=== PATIENT | female | born 1960 | race Caucasian/White ===

== ENCOUNTER 2021-10-09 15:04 | Inpatient (IN) | payer MEDICAID ==
[~2021-10-09] VITALS: Ht 167.6 cm; Wt 100.2 kg
[2021-10-09] VITALS (15 sets, daily range): BP systolic 43–141; BP diastolic 22–111
[~2021-10-09 15:04] MED LIST: ALBU6.7H9 INH; ASPI-1497 PO; BUTA-251 MT; ERGO1250; FLOR PO; FURO20TA4 PO; GABA-532 MT; HYDR-4001 MT; LEVO50TA8 MT; LORA10TA7 PO; METH2.5T MT; PRED5TAB MT; SIMV-43 PO; TRIC160 MT
[2021-10-09] MEDS ORDERED: ACETAMINOPHEN 325MG TABLET PO STA (15:29)
[2021-10-09] MEDS ORDERED: CEFTRIAXONE 1 G PREMIX 50 ML IV ONE (15:30)
[2021-10-09] MEDS ORDERED: AZITHROMYCIN 500MG/250ML 250 ML IV ONE (15:30)
[2021-10-09] MEDS ORDERED: SODIUM CHLORIDE 0.9% 1000ML BAG (SEPSIS BOLUS) IV ONE (15:30)
[2021-10-09] MEDS ORDERED: PIPERACILLIN/TAZOBACTAM 3.375GM/50ML PREMIX IV ONE (16:15)
[2021-10-09] MEDS ORDERED: VANCOMYCIN 1 G PREMIX 200 ML IV SCH (16:15)
[2021-10-09] MEDS ORDERED: PIPERACILLIN/TAZ 3.375G PREMIX 50 ML IV NR (16:30)
[2021-10-09] MEDS ORDERED: HYDROCORTISONE SOD SUCCINATE 100 MG/2 ML VIAL IV ONE (16:30)
[2021-10-09 17:00] LABS: CHLORIDE 101 mEq/L (98-107)
[2021-10-09 17:01] LABS: HEMATOCRIT. 36.4 % (36.0-48.0); HEMOGLOBIN. 12.1 g/dL (12.0-16.0); MEAN CORPUSCULAR HEMOGLOBIN 31.9 pg (28.0-32.0); MEAN CORPUSCULAR VOLUME 95.5 fL (81.0-99.0); MEAN PLATELET VOLUME 8.5 fl (7.4-10.4); PLATELET 682 x1000/uL (130-400); RED BLOOD CELL COUNT 3.81 mill/uL (4.2-5.4); RED CELL DISTRIBUTION WIDTH 16.2 % (11.6-14.6)
[2021-10-09 17:04] LABS: CLARITY URINE CLEAR (CLEAR); COLOR URINE YELLOW (YELLOW); KETONES URINE NEGATIVE (NEGATIVE); LEUKOCYTE ESTERASE URINE NEGATIVE (NEGATIVE); NITRITE URINE NEGATIVE (NEGATIVE); OCCULT BLOOD URINE NEGATIVE (NEGATIVE); PROTEIN URINE NEGATIVE (NEGATIVE); SPECIFIC GRAVITY URINE 1.013 (1.005-1.030); UROBILINOGEN URINE 0.2 E.U./dL (0.2-1.0)
[2021-10-09] MEDS: ACETAMINOPHEN 650MG SUPP PR ONE ×2 (17:08→17:10)
[2021-10-09] MEDS ORDERED: NOREPINEPHRINE 8MG/250ML PMX 250 ML IV SCH (17:45)
[2021-10-09] MEDS ORDERED: NOREPINEPHRINE 8 MG in DEXT 5% WATER 242 ML IV PRN (18:25)
[2021-10-09 20:49] LABS: PLATELET ESTIMATE INCREASED
[2021-10-09] MEDS ORDERED: HYDROCODONE/ACETAMINOPHEN 5/325MG TABLET PO PRN (22:00)
[2021-10-09] MEDS ORDERED: PHENYLEPHRINE 50 MG in DEXT 5% WATER 245 ML IV PRN (22:00)
[2021-10-09] MEDS: MORPHINE SULFATE 2 MG/ML CPJ (NOT FOR IM USE) IV PRN (22:36)
[2021-10-09] MEDS: ONDANSETRON HCL 4MG/2ML INJ IV PRN (22:37)
[2021-10-09] MEDS: NOREPINEPHRINE 32 MG in DEXT 5% WATER 218 ML IV PRN (22:39)
[2021-10-10] VITALS (101 sets, daily range): BP systolic 30–205; BP diastolic 14–125
[2021-10-10] MEDS ORDERED: ATROPINE SULFATE 1MG/10ML SYR IV PRN (02:00)
[2021-10-10 03:09] LABS: HEMATOCRIT. 36.6 % (36.0-48.0); HEMOGLOBIN. 11.5 g/dL (12.0-16.0); MEAN CORPUSCULAR HEMOGLOBIN 31.6 pg (28.0-32.0); MEAN CORPUSCULAR VOLUME 100.6 fL (81.0-99.0); MEAN PLATELET VOLUME 8.4 fl (7.4-10.4); PLATELET 813 x1000/uL (130-400); RED BLOOD CELL COUNT 3.64 mill/uL (4.2-5.4); RED CELL DISTRIBUTION WIDTH 16.5 % (11.6-14.6)
[2021-10-10] MEDS: MORPHINE SULFATE 2 MG/ML CPJ (NOT FOR IM USE) IV PRN (03:20)
[2021-10-10] MEDS: NOREPINEPHRINE 32 MG in DEXT 5% WATER 218 ML IV PRN ×3 (04:02→16:49)
[2021-10-10] MEDS ORDERED: GUAIFENESIN 200MG/10ML SUGAR FREE UDC PO PRN (07:00)
[2021-10-10] MEDS: BLOOD SUGAR DIAGNOSTIC STRIP TEST SCH ×4 (07:50→20:24)
[2021-10-10] MEDS ORDERED: ALBUMIN HUMAN 25GM/100ML (25%) IV ONE (08:00)
[2021-10-10] MEDS ORDERED: SODIUM CHLORIDE 0.9% 1,000 ML IV SCH (08:00)
[2021-10-10 08:04] LABS: *AMPHETAMINES SCREEN URINE NEGATIVE (NEGATIVE); *BARBITURATES SCREEN URINE NEGATIVE (NEGATIVE); *BENZODIAZEPINES SCREEN URINE NEGATIVE (NEGATIVE); *COCAINE SCREEN URINE NEGATIVE (NEGATIVE); METHADONE URINE SCREEN NEGATIVE (NEGATIVE); OPIATES URINE SCREEN NEGATIVE (NEGATIVE)
[2021-10-10 08:05] LABS: CANNABINOID URINE SCREEN NEGATIVE (NEGATIVE); PHENCYCLIDINE URINE SCREEN NEGATIVE (NEGATIVE)
[2021-10-10 08:05] LABS: NUCLEATED RED BLOOD CELLS 4 /100 WBC; PLATELET ESTIMATE INCREASED
[2021-10-10] MEDS: PIPERACILLIN/TAZOBACTAM 3.375 G in DEXTROSE 5% WATER 50 ML IV SCH ×3 (08:07→20:53)
[2021-10-10] MEDS: LORAZEPAM 2MG/ML CPJ IM PRN (08:07)
[2021-10-10] MEDS ORDERED: ETOMIDATE 2MG/ML 10ML VIAL IV ONE (08:11)
[2021-10-10] MEDS ORDERED: SUCCINYLCHOLINE CHLORIDE 200MG/10ML IV ONE (08:11)
[2021-10-10 08:36] LABS: BG BASE EXCESS -25.6 mmol/L (-2.0-2.0); BG CARBOXYHEMOGLOBIN 0.3 % (0.5-1.5); BG DEOXYHEMOGLOBIN 1.1 % (0.0-5.0); BG FRACTION INSPIRED OXYGEN 100; BG HCO3 ACT 6.2 mmol/L (22.0-26.0); BG METHEMOGLOBIN 0.3 % (0.0-1.5); BG OXYGEN SATURATION 98.9 % (92.0-98.5); BG OXYHEMOGLOBIN 98.3 % (94.0-97.0); BG PCO2 31.1 mmHg (35.0-45.0); BG PH 6.916 (7.350-7.450); BG PO2 202.7 mmHg (75.0-100.0); BG TOTAL HEMOGLOBIN 12.9 g/dL (12.0-18.0); BG VENT MODE MASK - BIPAP
[2021-10-10] MEDS ORDERED: ENOXAPARIN 40MG/0.4ML SYR SUBCUT SCH (09:00)
[2021-10-10] MEDS: INSULIN LISPRO 100 UNITS/ML SUBCUT SCH ×4 (09:22→20:53)
[2021-10-10] MEDS ORDERED: SODIUM BICARBONATE 8.4% 1 MEQ/ML 50ML SYR IV SCH ×2 (10:00→13:00)
[2021-10-10] MEDS ORDERED: PROPOFOL 10MG/ML 100ML 100 ML IV PRN (10:00)
[2021-10-10] MEDS ORDERED: FENTANYL CITRATE/PF 2,500 MCG in SODIUM CHLORIDE 0.9% 200 ML IV PRN (10:00)
[2021-10-10] MEDS: MIDAZOLAM HCL 100 MG in SODIUM CHLORIDE 0.9% 80 ML IV PRN (10:33)
[2021-10-10 11:44] LABS: BG CARBOXYHEMOGLOBIN 0.3 % (0.5-1.5); BG DEOXYHEMOGLOBIN 0.7 % (0.0-5.0); BG FRACTION INSPIRED OXYGEN 100; BG HCO3 ACT 9.4 mmol/L (22.0-26.0); BG METHEMOGLOBIN 0.4 % (0.0-1.5); BG OXYGEN SATURATION 99.3 % (92.0-98.5); BG OXYHEMOGLOBIN 98.6 % (94.0-97.0); BG PH 7.101 (7.350-7.450); BG PO2 189.9 mmHg (75.0-100.0); BG SAMPLE SITE LEFT BRACHIAL; BG TOTAL HEMOGLOBIN 12.7 g/dL (12.0-18.0); BG VENT MODE VENT - AC
[2021-10-10] MEDS ORDERED: SODIUM CHLORIDE 0.9% 250 ML IV ONE (11:45)
[2021-10-10] MEDS: VASOPRESSIN 20 UNIT in SODIUM CHLORIDE 0.9% 99 ML IV PRN ×2 (11:52→20:50)
[2021-10-10] MEDS ORDERED: NALOXONE HCL 0.4MG/ML VIAL IV PRN (12:30)
[2021-10-10] MEDS ORDERED: SODIUM BICARBONATE 8.4% 1 MEQ/ML 50ML SYR IV ONE (12:45)
[2021-10-10] MEDS: DOPAMINE 800MG PREMIX (DOUBLE) 250 ML IV PRN (12:59)
[2021-10-10] MEDS: MIDODRINE HCL 5MG TABLET PO SCH ×2 (14:23→16:47)
[2021-10-10 15:32] LABS: BG BASE EXCESS -16.3 mmol/L (-2.0-2.0); BG CARBOXYHEMOGLOBIN 0.5 % (0.5-1.5); BG DEOXYHEMOGLOBIN 10.4 % (0.0-5.0); BG FRACTION INSPIRED OXYGEN 60; BG HCO3 ACT 10.9 mmol/L (22.0-26.0); BG METHEMOGLOBIN 0.3 % (0.0-1.5); BG OXYGEN SATURATION 89.5 % (92.0-98.5); BG OXYHEMOGLOBIN 88.8 % (94.0-97.0); BG PCO2 30.4 mmHg (35.0-45.0); BG PH 7.172 (7.350-7.450); BG PO2 64.5 mmHg (75.0-100.0); BG VENT MODE VENT - AC
[2021-10-10] MEDS: SODIUM BICARBONATE 150 MEQ in DEXTROSE 5% WATER 1,000 ML IV SCH (16:46)
[2021-10-10] MEDS: PHENYLEPHRINE 100 MG in DEXT 5% WATER 240 ML IV PRN ×2 (16:48→22:40)
[2021-10-10] MEDS ORDERED: HEPARIN 25,000 UNITS PREMIX 250 ML IV SCH (17:30)
[2021-10-10] MEDS ORDERED: HEPARIN 60 UNITS/KG BOLUS IV NR (18:00)
[2021-10-10] MEDS ORDERED: HYDROCORTISONE SOD SUCCINATE 100 MG/2 ML VIAL IV SCH (18:00)
[2021-10-10] MEDS ORDERED: HEPARIN BOLUS PRN aPTT <30 IV (18:00)
[2021-10-10] MEDS: HYDROCORTISONE SOD SUCCINATE 100 MG/2 ML VIAL IV SCH ×2 (18:40→23:49)
[2021-10-10] MEDS: ACETAMINOPHEN 325MG TABLET PO PRN (19:28)
[2021-10-10 19:39] LABS: CHLORIDE 103 mEq/L (98-107)
[2021-10-10 19:40] LABS: HEMATOCRIT. 34.5 % (36.0-48.0); HEMOGLOBIN. 10.9 g/dL (12.0-16.0); MEAN CORPUSCULAR HEMOGLOBIN 31.5 pg (28.0-32.0); MEAN CORPUSCULAR VOLUME 99.4 fL (81.0-99.0); MEAN PLATELET VOLUME 8.3 fl (7.4-10.4); PLATELET 644 x1000/uL (130-400); RED BLOOD CELL COUNT 3.48 mill/uL (4.2-5.4); RED CELL DISTRIBUTION WIDTH 16.5 % (11.6-14.6)
[2021-10-10 19:45] LABS: PHOSPHORUS 4.4 mg/dL (2.5-4.9)
[2021-10-10 19:47] LABS: CREATINE KINASE 576 IU/L (26-192)
[2021-10-10 19:49] LABS: BETA HYDROXYBUTYRATE 0.3 mMol/L (0.0-0.3)
[2021-10-10] MEDS: HEPARIN 25,000 UNITS PREMIX 250 ML IV SCH (20:53)
[2021-10-10] MEDS ORDERED: EPINEPHRINE 10 MG in SODIUM CHLORIDE 0.9% 240 ML IV PRN (21:00)
[2021-10-10] MEDS ORDERED: KCL 20MEQ/100ML PREMIX 100 ML IV ONE (22:00)
[2021-10-10] MEDS: CALCITRIOL 0.25MCG CAPSULE PO SCH (22:45)
[2021-10-10] MEDS ORDERED: MAGNESIUM 2 G PREMIX 50 ML IV NR (23:00)
[2021-10-10] MEDS ORDERED: CALCIUM GLUCONATE 1GM PREMIX 50 ML IV NR (23:00)
[2021-10-10 23:16] LABS: NUCLEATED RED BLOOD CELLS 2 /100 WBC; PLATELET ESTIMATE INCREASED
[2021-10-11] VITALS (98 sets, daily range): BP systolic 60–146; BP diastolic 34–105
[2021-10-11] MEDS: NOREPINEPHRINE 32 MG in DEXT 5% WATER 218 ML IV PRN ×4 (00:10→20:10)
[2021-10-11] MEDS: MIDAZOLAM HCL 100 MG in SODIUM CHLORIDE 0.9% 80 ML IV PRN (00:11)
[2021-10-11] MEDS: VANCOMYCIN 1 G PREMIX 200 ML IV SCH (00:45)
[2021-10-11] MEDS: DOPAMINE 800MG PREMIX (DOUBLE) 250 ML IV PRN ×3 (00:51→19:19)
[2021-10-11] MEDS ORDERED: POTASSIUM CHLORIDE INJ 60 MEQ in DEXT 5% WATER 500 ML IV NR (01:00)
[2021-10-11] MEDS: SODIUM BICARBONATE 150 MEQ in DEXTROSE 5% WATER 1,000 ML IV SCH ×3 (01:56→20:10)
[2021-10-11] MEDS ORDERED: KCL 20MEQ/100ML PREMIX 100 ML IV NR ×3 (02:00→04:00)
[2021-10-11] MEDS: ACETAMINOPHEN 325MG TABLET PO PRN ×2 (02:11→20:25)
[2021-10-11] MEDS: PHENYLEPHRINE 100 MG in DEXT 5% WATER 240 ML IV PRN ×4 (03:57→20:10)
[2021-10-11] MEDS: PIPERACILLIN/TAZOBACTAM 3.375 G in DEXTROSE 5% WATER 50 ML IV SCH ×3 (05:14→21:49)
[2021-10-11] MEDS: HYDROCORTISONE SOD SUCCINATE 100 MG/2 ML VIAL IV SCH ×4 (05:14→23:11)
[2021-10-11] MEDS ORDERED: CALCIUM GLUCONATE 1GM PREMIX 50 ML IV NR (06:00)
[2021-10-11 08:25] LABS: HEMATOCRIT. 34.6 % (36.0-48.0); HEMOGLOBIN. 10.9 g/dL (12.0-16.0); MEAN CORPUSCULAR HEMOGLOBIN 31.8 pg (28.0-32.0); MEAN CORPUSCULAR VOLUME 101.2 fL (81.0-99.0); MEAN PLATELET VOLUME 8.7 fl (7.4-10.4); PLATELET 615 x1000/uL (130-400); RED BLOOD CELL COUNT 3.42 mill/uL (4.2-5.4); RED CELL DISTRIBUTION WIDTH 17.6 % (11.6-14.6)
[2021-10-11] MEDS: BLOOD SUGAR DIAGNOSTIC STRIP TEST SCH ×4 (08:26→20:03)
[2021-10-11] MEDS: CALCITRIOL 0.25MCG CAPSULE PO SCH (08:30)
[2021-10-11] MEDS: MIDODRINE HCL 5MG TABLET PO SCH ×3 (08:30→17:55)
[2021-10-11] MEDS: INSULIN LISPRO 100 UNITS/ML SUBCUT SCH ×4 (08:31→20:11)
[2021-10-11 08:35] LABS: CHLORIDE 93 mEq/L (98-107)
[2021-10-11 08:41] LABS: PHOSPHORUS 4.5 mg/dL (2.5-4.9)
[2021-10-11] MEDS ORDERED: ENOXAPARIN 30MG/0.3ML SYR SUBCUT SCH (09:00)
[2021-10-11 09:20] LABS: BG CARBOXYHEMOGLOBIN 0.3 % (0.5-1.5); BG DEOXYHEMOGLOBIN 18.5 % (0.0-5.0); BG FRACTION INSPIRED OXYGEN 70; BG HCO3 ACT 14.2 mmol/L (22.0-26.0); BG METHEMOGLOBIN 0.3 % (0.0-1.5); BG OXYGEN SATURATION 81.4 % (92.0-98.5); BG OXYHEMOGLOBIN 80.9 % (94.0-97.0); BG PH 7.147 (7.350-7.450); BG PO2 51.8 mmHg (75.0-100.0); BG SAMPLE SITE RIGHT RADIAL; BG TOTAL RESPIRATORY RATE 30 b/min; BG VENT MODE VENT - AC
[2021-10-11] MEDS ORDERED: SODIUM BICARBONATE 8.4% 1 MEQ/ML 50ML SYR IV NR (10:00)
[2021-10-11 11:54] LABS: BG BASE EXCESS -7.8 mmol/L (-2.0-2.0); BG CARBOXYHEMOGLOBIN 0.2 % (0.5-1.5); BG FRACTION INSPIRED OXYGEN 100; BG HCO3 ACT 19.1 mmol/L (22.0-26.0); BG METHEMOGLOBIN 0.3 % (0.0-1.5); BG OXYHEMOGLOBIN 91.5 % (94.0-97.0); BG PCO2 44.7 mmHg (35.0-45.0); BG PH 7.249 (7.350-7.450); BG PO2 66.1 mmHg (75.0-100.0); BG SAMPLE SITE RIGHT BRACHIAL; BG TOTAL HEMOGLOBIN 11.5 g/dL (12.0-18.0); BG TOTAL RESPIRATORY RATE 36 b/min; BG VENT MODE VENT - AC
[2021-10-11] MEDS: VASOPRESSIN 20 UNIT in SODIUM CHLORIDE 0.9% 99 ML IV PRN (13:25)
[2021-10-11 13:31] LABS: NUCLEATED RED BLOOD CELLS 2 /100 WBC; PLATELET ESTIMATE INCREASED
[2021-10-11 15:56] LABS: BG BASE EXCESS -7.9 mmol/L (-2.0-2.0); BG CARBOXYHEMOGLOBIN 0.2 % (0.5-1.5); BG DEOXYHEMOGLOBIN 6.7 % (0.0-5.0); BG FRACTION INSPIRED OXYGEN 100; BG METHEMOGLOBIN 0.3 % (0.0-1.5); BG OXYGEN SATURATION 93.3 % (92.0-98.5); BG OXYHEMOGLOBIN 92.8 % (94.0-97.0); BG PCO2 44.5 mmHg (35.0-45.0); BG PH 7.249 (7.350-7.450); BG PO2 71.3 mmHg (75.0-100.0); BG SAMPLE SITE RIGHT BRACHIAL; BG TOTAL HEMOGLOBIN 11.8 g/dL (12.0-18.0); BG TOTAL RESPIRATORY RATE 39 b/min; BG VENT MODE VENT - AC
[2021-10-12] VITALS (98 sets, daily range): BP systolic 65–196; BP diastolic 27–76
[2021-10-12] MEDS: PHENYLEPHRINE 100 MG in DEXT 5% WATER 240 ML IV PRN ×2 (01:39→07:17)
[2021-10-12] MEDS: NOREPINEPHRINE 32 MG in DEXT 5% WATER 218 ML IV PRN (04:29)
[2021-10-12] MEDS: SODIUM BICARBONATE 150 MEQ in DEXTROSE 5% WATER 1,000 ML IV SCH (04:53)
[2021-10-12] MEDS: PIPERACILLIN/TAZOBACTAM 3.375 G in DEXTROSE 5% WATER 50 ML IV SCH (05:33)
[2021-10-12] MEDS: HYDROCORTISONE SOD SUCCINATE 100 MG/2 ML VIAL IV SCH ×4 (05:33→23:13)
[2021-10-12 06:26] LABS: CHLORIDE 82 mEq/L (98-107)
[2021-10-12 06:40] LABS: CREATINE KINASE 994 IU/L (26-192)
[2021-10-12 06:42] LABS: PHOSPHORUS 3.6 mg/dL (2.5-4.9)
[2021-10-12 07:06] LABS: HEMATOCRIT. 35.3 % (36.0-48.0); MEAN CORPUSCULAR HEMOGLOBIN 29.8 pg (28.0-32.0); MEAN CORPUSCULAR VOLUME 96.1 fL (81.0-99.0); MEAN PLATELET VOLUME 9.2 fl (7.4-10.4); PLATELET 645 x1000/uL (130-400); RED BLOOD CELL COUNT 3.67 mill/uL (4.2-5.4); RED CELL DISTRIBUTION WIDTH 16.4 % (11.6-14.6)
[2021-10-12 07:06] LABS: *CREATININE RANDOM URINE 40.3 mg/dL (Not Estab.)
[2021-10-12] MEDS ORDERED: PHENYLEPHRINE 100 MG in DEXT 5% WATER 240 ML IV PRN (07:51)
[2021-10-12] MEDS ORDERED: MAGNESIUM 2 G PREMIX 50 ML IV ONE (08:00)
[2021-10-12] MEDS: BLOOD SUGAR DIAGNOSTIC STRIP TEST SCH ×4 (08:23→21:09)
[2021-10-12] MEDS: MIDODRINE HCL 5MG TABLET PO SCH ×3 (08:23→18:06)
[2021-10-12] MEDS: INSULIN LISPRO 100 UNITS/ML SUBCUT SCH ×4 (08:24→21:13)
[2021-10-12] MEDS: CALCIUM GLUCONATE 1GM PREMIX 50 ML IV SCH ×2 (08:40→21:09)
[2021-10-12 08:58] LABS: BG BASE EXCESS -4.6 mmol/L (-2.0-2.0); BG CARBOXYHEMOGLOBIN 0.7 % (0.5-1.5); BG DEOXYHEMOGLOBIN 0.9 % (0.0-5.0); BG FRACTION INSPIRED OXYGEN 100; BG HCO3 ACT 19.4 mmol/L (22.0-26.0); BG METHEMOGLOBIN 0.5 % (0.0-1.5); BG OXYGEN SATURATION 99.1 % (92.0-98.5); BG OXYHEMOGLOBIN 97.9 % (94.0-97.0); BG PCO2 32.2 mmHg (35.0-45.0); BG PH 7.397 (7.350-7.450); BG PO2 140.8 mmHg (75.0-100.0); BG SAMPLE SITE RIGHT BRACHIAL; BG TOTAL HEMOGLOBIN 11.5 g/dL (12.0-18.0); BG TOTAL RESPIRATORY RATE 38 b/min; BG VENT MODE VENT - AC
[2021-10-12] MEDS: CALCITRIOL 0.25MCG CAPSULE PO SCH (09:50)
[2021-10-12] MEDS: NOREPINEPHRINE 32 MG in SODIUM CHLORIDE 0.9% 218 ML IV PRN (09:53)
[2021-10-12] MEDS: PHENYLEPHRINE 100 MG in SODIUM CHLORIDE 0.9% 240 ML IV PRN ×3 (09:54→21:12)
[2021-10-12] MEDS: FENTANYL CITRATE/PF 2,500 MCG in SODIUM CHLORIDE 0.9% 200 ML IV PRN (09:55)
[2021-10-12 11:20] LABS: NUCLEATED RED BLOOD CELLS 20 /100 WBC
[2021-10-12 11:21] LABS: PLATELET ESTIMATE INCREASED
[2021-10-12] MEDS: SODIUM BICARBONATE 150 MEQ in SODIUM CHLORIDE 0.9% 1,000 ML IV SCH (12:03)
[2021-10-12] MEDS: VANCOMYCIN 1 G PREMIX 200 ML IV SCH (12:04)
[2021-10-12 12:19] LABS: INR 1.9; PARTIAL THROMBOPLASTIN TIME 62.8 sec (23.4-31.0); PROTHROMBIN TIME 19.8 sec (9.6-11.0)
[2021-10-12] MEDS: MEROPENEM 1,000 MG in SODIUM CHLORIDE 0.9% 100 ML IV SCH ×2 (16:12→21:09)
[2021-10-12 16:39] LABS: SODIUM URINE RANDOM < 5 mEq/L
[2021-10-12] MEDS: INSULIN GLARGINE UD 100 UNITS/ML SYR SUBCUT SCH (21:13)
[2021-10-12] MEDS: HEPARIN 25,000 UNITS PREMIX 250 ML IV SCH (21:17)
[2021-10-13] VITALS (92 sets, daily range): BP systolic 71–153; BP diastolic 43–88
[2021-10-13] MEDS: PHENYLEPHRINE 100 MG in SODIUM CHLORIDE 0.9% 240 ML IV PRN ×4 (02:34→19:38)
[2021-10-13] MEDS: SODIUM BICARBONATE 150 MEQ in SODIUM CHLORIDE 0.9% 1,000 ML IV SCH (03:51)
[2021-10-13] MEDS: HYDROCORTISONE SOD SUCCINATE 100 MG/2 ML VIAL IV SCH ×4 (05:12→23:59)
[2021-10-13 06:18] LABS: HEMATOCRIT. 37.9 % (36.0-48.0); HEMOGLOBIN. 12.4 g/dL (12.0-16.0); MEAN CORPUSCULAR HEMOGLOBIN 30.6 pg (28.0-32.0); MEAN CORPUSCULAR VOLUME 93.9 fL (81.0-99.0); MEAN PLATELET VOLUME 9.7 fl (7.4-10.4); PLATELET 612 x1000/uL (130-400); RED BLOOD CELL COUNT 4.04 mill/uL (4.2-5.4); RED CELL DISTRIBUTION WIDTH 16.1 % (11.6-14.6)
[2021-10-13 06:26] LABS: CHLORIDE 82 mEq/L (98-107)
[2021-10-13 06:31] LABS: PHOSPHORUS 2.9 mg/dL (2.5-4.9)
[2021-10-13 06:34] LABS: CREATINE KINASE 745 IU/L (26-192)
[2021-10-13] MEDS: INSULIN LISPRO 100 UNITS/ML SUBCUT SCH ×4 (08:20→21:12)
[2021-10-13] MEDS: BLOOD SUGAR DIAGNOSTIC STRIP TEST SCH ×4 (08:39→21:11)
[2021-10-13] MEDS: MEROPENEM 1,000 MG in SODIUM CHLORIDE 0.9% 100 ML IV SCH ×2 (08:40→21:11)
[2021-10-13] MEDS: MIDODRINE HCL 5MG TABLET PO SCH ×3 (08:40→16:22)
[2021-10-13] MEDS: CALCIUM GLUCONATE 1GM PREMIX 50 ML IV SCH ×2 (08:40→21:11)
[2021-10-13 09:21] LABS: NUCLEATED RED BLOOD CELLS 24 /100 WBC; PLATELET ESTIMATE INCREASED
[2021-10-13 09:37] LABS: BG BASE EXCESS 3.7 mmol/L (-2.0-2.0); BG CARBOXYHEMOGLOBIN 0.3 % (0.5-1.5); BG DEOXYHEMOGLOBIN 1.3 % (0.0-5.0); BG FRACTION INSPIRED OXYGEN 100; BG HCO3 ACT 26.5 mmol/L (22.0-26.0); BG METHEMOGLOBIN 0.3 % (0.0-1.5); BG OXYGEN SATURATION 98.7 % (92.0-98.5); BG OXYHEMOGLOBIN 98.1 % (94.0-97.0); BG PCO2 34.1 mmHg (35.0-45.0); BG PH 7.508 (7.350-7.450); BG PO2 126.2 mmHg (75.0-100.0); BG TOTAL HEMOGLOBIN 12.5 g/dL (12.0-18.0); BG VENT MODE VENT - AC
[2021-10-13] MEDS: KCL 20MEQ/100ML PREMIX 100 ML IV SCH ×4 (09:55→16:24)
[2021-10-13] MEDS: CALCITRIOL 0.25MCG CAPSULE PO SCH (09:56)
[2021-10-13] MEDS: INSULIN GLARGINE UD 100 UNITS/ML SYR SUBCUT SCH ×2 (09:57→21:49)
[2021-10-13] MEDS ORDERED: IPRATROPIUM/ALBUTEROL 0.5-3(2.5)MG/3ML NEB HHN PRN (11:15)
[2021-10-13] MEDS: IPRATROPIUM/ALBUTEROL 0.5-3(2.5)MG/3ML NEB HHN SCH ×3 (12:09→20:56)
[2021-10-13] MEDS: FENTANYL CITRATE/PF 2,500 MCG in SODIUM CHLORIDE 0.9% 200 ML IV PRN (13:08)
[2021-10-13] MEDS: PANTOPRAZOLE SODIUM 40 MG/VIAL IV SCH (16:21)
[2021-10-13] MEDS: LORAZEPAM 2MG/ML CPJ IM PRN (17:20)
[2021-10-13] MEDS: NOREPINEPHRINE 32 MG in SODIUM CHLORIDE 0.9% 218 ML IV PRN (19:38)
[2021-10-13 20:38] LABS: BG BASE EXCESS 6.2 mmol/L (-2.0-2.0); BG CARBOXYHEMOGLOBIN 0.8 % (0.5-1.5); BG FRACTION INSPIRED OXYGEN 65; BG HCO3 ACT 30.3 mmol/L (22.0-26.0); BG METHEMOGLOBIN 0.3 % (0.0-1.5); BG OXYGEN SATURATION 92.9 % (92.0-98.5); BG OXYHEMOGLOBIN 91.9 % (94.0-97.0); BG PCO2 41.5 mmHg (35.0-45.0); BG PH 7.481 (7.350-7.450); BG PO2 65.1 mmHg (75.0-100.0); BG SAMPLE SITE LEFT RADIAL; BG VENT MODE VENT - SIMV
[2021-10-13] MEDS: PROPOFOL 10MG/ML 100ML 100 ML IV PRN (21:11)
[2021-10-13] MEDS: VANCOMYCIN 1 G PREMIX 200 ML IV SCH (23:59)
[2021-10-14] VITALS (95 sets, daily range): BP systolic 70–141; BP diastolic 39–83
[2021-10-14] MEDS: IPRATROPIUM/ALBUTEROL 0.5-3(2.5)MG/3ML NEB HHN SCH ×6 (00:21→20:42)
[2021-10-14] MEDS: PHENYLEPHRINE 100 MG in SODIUM CHLORIDE 0.9% 240 ML IV PRN ×4 (01:34→20:09)
[2021-10-14 02:42] LABS: HEMATOCRIT. 36.1 % (36.0-48.0); HEMOGLOBIN. 11.9 g/dL (12.0-16.0); MEAN CORPUSCULAR HEMOGLOBIN 30.9 pg (28.0-32.0); MEAN CORPUSCULAR VOLUME 93.9 fL (81.0-99.0); MEAN PLATELET VOLUME 9.7 fl (7.4-10.4); PLATELET 553 x1000/uL (130-400); RED CELL DISTRIBUTION WIDTH 16.3 % (11.6-14.6)
[2021-10-14 02:54] LABS: PHOSPHORUS 2.2 mg/dL (2.5-4.9)
[2021-10-14 03:02] LABS: RED BLOOD CELL COUNT 3.84 mill/uL (4.2-5.4)
[2021-10-14] MEDS: PROPOFOL 10MG/ML 100ML 100 ML IV PRN (03:51)
[2021-10-14] MEDS: HYDROCORTISONE SOD SUCCINATE 100 MG/2 ML VIAL IV SCH ×3 (05:09→17:29)
[2021-10-14] MEDS: FENTANYL CITRATE/PF 2,500 MCG in SODIUM CHLORIDE 0.9% 200 ML IV PRN ×2 (05:15→23:03)
[2021-10-14] MEDS: BLOOD SUGAR DIAGNOSTIC STRIP TEST SCH ×3 (07:50→17:41)
[2021-10-14] MEDS: CALCIUM GLUCONATE 1GM PREMIX 50 ML IV SCH ×2 (09:04→20:24)
[2021-10-14] MEDS: PANTOPRAZOLE SODIUM 40 MG/VIAL IV SCH (09:04)
[2021-10-14] MEDS: DOPAMINE 800MG PREMIX (DOUBLE) 250 ML IV PRN ×2 (09:04→09:20)
[2021-10-14] MEDS: MEROPENEM 1,000 MG in SODIUM CHLORIDE 0.9% 100 ML IV SCH ×2 (09:04→20:24)
[2021-10-14] MEDS: CALCITRIOL 1MCG/ML AMP IV SCH (09:05)
[2021-10-14] MEDS: MIDODRINE HCL 5MG TABLET PO SCH ×3 (09:05→22:14)
[2021-10-14] MEDS: INSULIN LISPRO 100 UNITS/ML SUBCUT SCH ×3 (09:06→17:30)
[2021-10-14] MEDS: INSULIN GLARGINE UD 100 UNITS/ML SYR SUBCUT SCH ×2 (09:21→22:15)
[2021-10-14 10:00] LABS: BG BASE EXCESS 4.5 mmol/L (-2.0-2.0); BG CARBOXYHEMOGLOBIN 0.3 % (0.5-1.5); BG DEOXYHEMOGLOBIN 8.3 % (0.0-5.0); BG FRACTION INSPIRED OXYGEN 65; BG HCO3 ACT 28.7 mmol/L (22.0-26.0); BG METHEMOGLOBIN 0.5 % (0.0-1.5); BG OXYGEN SATURATION 91.6 % (92.0-98.5); BG OXYHEMOGLOBIN 90.9 % (94.0-97.0); BG PCO2 41.3 mmHg (35.0-45.0); BG PO2 64.2 mmHg (75.0-100.0); BG SAMPLE SITE LEFT RADIAL; BG TOTAL HEMOGLOBIN 12.5 g/dL (12.0-18.0); BG VENT MODE VENT - AC
[2021-10-14 13:08] LABS: METHANOL BLOOD <.010 g/dL (0.000-0.010)
[2021-10-14 13:57] LABS: NUCLEATED RED BLOOD CELLS 42 /100 WBC; PLATELET ESTIMATE INCREASED
[2021-10-14 15:06] LABS: ETHYLENE GLYCOL <5 mg/dL (None detected)
[2021-10-14] MEDS ORDERED: POTASSIUM CHLORIDE INJ 40 MEQ in DEXT 5% WATER 250 ML IV ONE (17:45)
[2021-10-14] MEDS: FUROSEMIDE 40MG/4ML VIAL IVP SCH (18:31)
[2021-10-14] MEDS: HEPARIN BOLUS PRN aPTT 30-44 IV (18:44)
[2021-10-14] MEDS: KCL 20MEQ/100ML PREMIX 100 ML IV SCH ×2 (19:50→22:14)
[2021-10-14] MEDS: HEPARIN 25,000 UNITS in DEXT 5% WATER 250 ML IV SCH (21:46)
[2021-10-15] VITALS (96 sets, daily range): BP systolic 63–158; BP diastolic 46–94
[2021-10-15] MEDS: HYDROCORTISONE SOD SUCCINATE 100 MG/2 ML VIAL IV SCH ×5 (00:21→23:52)
[2021-10-15] MEDS: BLOOD SUGAR DIAGNOSTIC STRIP TEST SCH ×5 (00:22→23:51)
[2021-10-15] MEDS: INSULIN LISPRO 100 UNITS/ML SUBCUT SCH ×5 (00:23→23:52)
[2021-10-15] MEDS: IPRATROPIUM/ALBUTEROL 0.5-3(2.5)MG/3ML NEB HHN SCH ×6 (00:26→20:18)
[2021-10-15] MEDS: PHENYLEPHRINE 100 MG in SODIUM CHLORIDE 0.9% 240 ML IV PRN ×2 (03:09→09:19)
[2021-10-15] MEDS: MIDODRINE HCL 5MG TABLET PO SCH ×3 (05:52→22:57)
[2021-10-15 06:27] LABS: CHLORIDE 91 mEq/L (98-107)
[2021-10-15 06:35] LABS: PHOSPHORUS 2.4 mg/dL (2.5-4.9)
[2021-10-15 06:39] LABS: T4 FREE 1.19 ng/dL (0.76-1.46)
[2021-10-15 06:55] LABS: VITAMIN B12 SERUM >2000 pg/mL pg/mL (211-911)
[2021-10-15] MEDS: MEROPENEM 1,000 MG in SODIUM CHLORIDE 0.9% 100 ML IV SCH ×2 (09:09→20:24)
[2021-10-15] MEDS: PANTOPRAZOLE SODIUM 40 MG/VIAL IV SCH (09:09)
[2021-10-15] MEDS: CALCIUM GLUCONATE 1GM PREMIX 50 ML IV SCH ×2 (09:09→20:24)
[2021-10-15] MEDS: FUROSEMIDE 40MG/4ML VIAL IVP SCH (09:09)
[2021-10-15] MEDS: CALCITRIOL 1MCG/ML AMP IV SCH (09:10)
[2021-10-15 09:12] LABS: BG CARBOXYHEMOGLOBIN 0.4 % (0.5-1.5); BG DEOXYHEMOGLOBIN 2.4 % (0.0-5.0); BG FRACTION INSPIRED OXYGEN 60; BG HCO3 ACT 31.1 mmol/L (22.0-26.0); BG METHEMOGLOBIN 0.3 % (0.0-1.5); BG OXYGEN SATURATION 97.6 % (92.0-98.5); BG OXYHEMOGLOBIN 96.9 % (94.0-97.0); BG PCO2 47.4 mmHg (35.0-45.0); BG PH 7.435 (7.350-7.450); BG PO2 93.6 mmHg (75.0-100.0); BG SAMPLE SITE LEFT RADIAL; BG TOTAL HEMOGLOBIN 12.2 g/dL (12.0-18.0); BG VENT MODE VENT - AC
[2021-10-15] MEDS: INSULIN GLARGINE UD 100 UNITS/ML SYR SUBCUT SCH ×2 (10:38→22:58)
[2021-10-15 11:57] LABS: HEMATOCRIT. 35.4 % (36.0-48.0); HEMOGLOBIN. 10.8 g/dL (12.0-16.0); MEAN CORPUSCULAR HEMOGLOBIN 29.6 pg (28.0-32.0); MEAN CORPUSCULAR VOLUME 96.5 fL (81.0-99.0); MEAN PLATELET VOLUME 10.4 fl (7.4-10.4); PLATELET 431 x1000/uL (130-400); RED BLOOD CELL COUNT 3.67 mill/uL (4.2-5.4); RED CELL DISTRIBUTION WIDTH 16.6 % (11.6-14.6)
[2021-10-15] MEDS: VANCOMYCIN 1 G PREMIX 200 ML IV SCH (12:07)
[2021-10-15 14:10] LABS: NUCLEATED RED BLOOD CELLS 28 /100 WBC
[2021-10-15 14:11] LABS: PLATELET ESTIMATE SLIGHTLY INCREASED
[2021-10-15] MEDS: FENTANYL CITRATE/PF 2,500 MCG in SODIUM CHLORIDE 0.9% 200 ML IV PRN (16:17)
[2021-10-16] VITALS (110 sets, daily range): BP systolic 65–183; BP diastolic 38–98
[2021-10-16] MEDS: PHENYLEPHRINE 100 MG in SODIUM CHLORIDE 0.9% 240 ML IV PRN (00:07)
[2021-10-16] MEDS: HEPARIN 25,000 UNITS in DEXT 5% WATER 250 ML IV SCH (02:04)
[2021-10-16] MEDS: IPRATROPIUM/ALBUTEROL 0.5-3(2.5)MG/3ML NEB HHN SCH ×5 (02:09→20:12)
[2021-10-16 02:40] LABS: HEMATOCRIT. 32.6 % (36.0-48.0); HEMOGLOBIN. 10.1 g/dL (12.0-16.0); MEAN CORPUSCULAR HEMOGLOBIN 29.5 pg (28.0-32.0); MEAN CORPUSCULAR VOLUME 95.2 fL (81.0-99.0); MEAN PLATELET VOLUME 10.9 fl (7.4-10.4); PLATELET 373 x1000/uL (130-400); RED BLOOD CELL COUNT 3.43 mill/uL (4.2-5.4); RED CELL DISTRIBUTION WIDTH 16.3 % (11.6-14.6)
[2021-10-16 02:45] LABS: CHLORIDE 91 mEq/L (98-107)
[2021-10-16 02:54] LABS: PHOSPHORUS 2.3 mg/dL (2.5-4.9)
[2021-10-16] MEDS: BLOOD SUGAR DIAGNOSTIC STRIP TEST SCH ×4 (06:00→23:54)
[2021-10-16] MEDS: HYDROCORTISONE SOD SUCCINATE 100 MG/2 ML VIAL IV SCH ×4 (06:08→23:30)
[2021-10-16] MEDS: DOPAMINE 800MG PREMIX (DOUBLE) 250 ML IV PRN (06:10)
[2021-10-16] MEDS: INSULIN LISPRO 100 UNITS/ML SUBCUT SCH ×4 (06:12→23:34)
[2021-10-16 06:46] LABS: NUCLEATED RED BLOOD CELLS 13 /100 WBC
[2021-10-16 06:47] LABS: PLATELET ESTIMATE NORMAL
[2021-10-16] MEDS: FENTANYL CITRATE/PF 2,500 MCG in SODIUM CHLORIDE 0.9% 200 ML IV PRN (08:40)
[2021-10-16] MEDS: FUROSEMIDE 40MG/4ML VIAL IVP SCH (08:52)
[2021-10-16] MEDS: PANTOPRAZOLE SODIUM 40 MG/VIAL IV SCH (08:52)
[2021-10-16] MEDS: MEROPENEM 1,000 MG in SODIUM CHLORIDE 0.9% 100 ML IV SCH ×2 (08:53→20:12)
[2021-10-16] MEDS: CALCITRIOL 1MCG/ML AMP IV SCH (08:54)
[2021-10-16] MEDS: CALCIUM GLUCONATE 1GM PREMIX 50 ML IV SCH (08:58)
[2021-10-16] MEDS: MIDODRINE HCL 5MG TABLET PO SCH ×3 (08:58→21:44)
[2021-10-16] MEDS: INSULIN GLARGINE UD 100 UNITS/ML SYR SUBCUT SCH ×2 (10:37→21:45)
[2021-10-16] MEDS: HEPARIN BOLUS PRN aPTT 30-44 IV (10:37)
[2021-10-16 11:23] LABS: BG CARBOXYHEMOGLOBIN 0.3 % (0.5-1.5); BG DEOXYHEMOGLOBIN 2.5 % (0.0-5.0); BG FRACTION INSPIRED OXYGEN 60; BG HCO3 ACT 26.5 mmol/L (22.0-26.0); BG METHEMOGLOBIN 0.3 % (0.0-1.5); BG OXYGEN SATURATION 97.5 % (92.0-98.5); BG OXYHEMOGLOBIN 96.9 % (94.0-97.0); BG PCO2 36.5 mmHg (35.0-45.0); BG PH 7.479 (7.350-7.450); BG PO2 92.8 mmHg (75.0-100.0); BG SAMPLE SITE LEFT RADIAL; BG TOTAL HEMOGLOBIN 10.5 g/dL (12.0-18.0); BG TOTAL RESPIRATORY RATE 20 b/min; BG VENT MODE VENT - AC
[2021-10-16] MEDS ORDERED: FUROSEMIDE 40MG/4ML VIAL IVP SCH (14:00)
[2021-10-16] MEDS: POTASSIUM-SODIUM PHOSPHATE POWDER PACKET PO SCH ×2 (14:20→16:41)
[2021-10-16] MEDS: CALCIUM 1250MG TABLET (500MG ELEMENTAL CALCIUM) PO SCH (20:12)
[2021-10-16] MEDS: VANCOMYCIN 1 G PREMIX 200 ML IV SCH (23:30)
[2021-10-17] VITALS (97 sets, daily range): BP systolic 89–146; BP diastolic 44–69
[2021-10-17] MEDS: IPRATROPIUM/ALBUTEROL 0.5-3(2.5)MG/3ML NEB HHN SCH ×6 (00:14→20:45)
[2021-10-17] MEDS: FENTANYL CITRATE/PF 2,500 MCG in SODIUM CHLORIDE 0.9% 200 ML IV PRN ×2 (05:32→23:07)
[2021-10-17] MEDS: HYDROCORTISONE SOD SUCCINATE 100 MG/2 ML VIAL IV SCH ×4 (05:34→22:47)
[2021-10-17] MEDS: HEPARIN 25,000 UNITS in DEXT 5% WATER 250 ML IV SCH (05:34)
[2021-10-17] MEDS: FUROSEMIDE 40MG/4ML VIAL IVP SCH ×2 (05:34→17:45)
[2021-10-17] MEDS: MIDODRINE HCL 5MG TABLET PO SCH ×3 (05:35→22:47)
[2021-10-17] MEDS: INSULIN LISPRO 100 UNITS/ML SUBCUT SCH ×4 (05:52→23:56)
[2021-10-17 06:11] LABS: HEMATOCRIT. 28.4 % (36.0-48.0); HEMOGLOBIN. 8.9 g/dL (12.0-16.0); MEAN CORPUSCULAR VOLUME 95.4 fL (81.0-99.0); MEAN PLATELET VOLUME 11.5 fl (7.4-10.4); PLATELET 284 x1000/uL (130-400); RED BLOOD CELL COUNT 2.98 mill/uL (4.2-5.4); RED CELL DISTRIBUTION WIDTH 16.7 % (11.6-14.6)
[2021-10-17 06:15] LABS: PHOSPHORUS 3.4 mg/dL (2.5-4.9)
[2021-10-17] MEDS: BLOOD SUGAR DIAGNOSTIC STRIP TEST SCH ×4 (06:57→23:43)
[2021-10-17 07:52] LABS: BG BASE EXCESS 12.1 mmol/L (-2.0-2.0); BG CARBOXYHEMOGLOBIN 0.1 % (0.5-1.5); BG DEOXYHEMOGLOBIN 5.6 % (0.0-5.0); BG FRACTION INSPIRED OXYGEN 50; BG HCO3 ACT 36.6 mmol/L (22.0-26.0); BG METHEMOGLOBIN 0.4 % (0.0-1.5); BG OXYGEN SATURATION 94.4 % (92.0-98.5); BG OXYHEMOGLOBIN 93.9 % (94.0-97.0); BG PCO2 47.8 mmHg (35.0-45.0); BG PH 7.502 (7.350-7.450); BG PO2 69.7 mmHg (75.0-100.0); BG SAMPLE SITE LEFT RADIAL; BG TOTAL HEMOGLOBIN 9.8 g/dL (12.0-18.0); BG TOTAL RESPIRATORY RATE 17 b/min; BG VENT MODE VENT - AC
[2021-10-17 08:51] LABS: NUCLEATED RED BLOOD CELLS 8 /100 WBC; PLATELET ESTIMATE NORMAL
[2021-10-17] MEDS: PANTOPRAZOLE SODIUM 40 MG/VIAL IV SCH (09:00)
[2021-10-17] MEDS: POTASSIUM-SODIUM PHOSPHATE POWDER PACKET PO SCH (09:29)
[2021-10-17] MEDS: CALCITRIOL 1MCG/ML AMP IV SCH (09:31)
[2021-10-17] MEDS: MEROPENEM 1,000 MG in SODIUM CHLORIDE 0.9% 100 ML IV SCH ×2 (09:31→20:27)
[2021-10-17] MEDS: INSULIN GLARGINE UD 100 UNITS/ML SYR SUBCUT SCH ×2 (09:32→22:49)
[2021-10-17 19:53] LABS: HEMATOCRIT. 29.3 % (36.0-48.0); HEMOGLOBIN. 8.8 g/dL (12.0-16.0); MEAN CORPUSCULAR HEMOGLOBIN 29.3 pg (28.0-32.0); MEAN CORPUSCULAR VOLUME 97.6 fL (81.0-99.0); PLATELET 269 x1000/uL (130-400); RED CELL DISTRIBUTION WIDTH 16.6 % (11.6-14.6)
[2021-10-17 23:29] LABS: NUCLEATED RED BLOOD CELLS 5 /100 WBC
[2021-10-17 23:30] LABS: PLATELET ESTIMATE NORMAL
[2021-10-18] VITALS (97 sets, daily range): BP systolic 99–182; BP diastolic 34–153
[2021-10-18] MEDS ORDERED: VANCOMYCIN 750 MG PREMIX 150 ML IV SCH
[2021-10-18] MEDS: IPRATROPIUM/ALBUTEROL 0.5-3(2.5)MG/3ML NEB HHN SCH ×7 (00:29→23:48)
[2021-10-18] MEDS: BLOOD SUGAR DIAGNOSTIC STRIP TEST SCH ×3 (05:04→18:47)
[2021-10-18] MEDS: HYDROCORTISONE SOD SUCCINATE 100 MG/2 ML VIAL IV SCH ×3 (05:32→21:09)
[2021-10-18] MEDS: FUROSEMIDE 40MG/4ML VIAL IVP SCH ×2 (05:32→19:04)
[2021-10-18] MEDS: INSULIN LISPRO 100 UNITS/ML SUBCUT SCH ×3 (05:33→18:00)
[2021-10-18] MEDS: MIDODRINE HCL 5MG TABLET PO SCH ×3 (05:33→21:10)
[2021-10-18 06:15] LABS: HEMATOCRIT. 25.8 % (36.0-48.0); HEMOGLOBIN. 7.8 g/dL (12.0-16.0); MEAN CORPUSCULAR HEMOGLOBIN 29.5 pg (28.0-32.0); MEAN CORPUSCULAR VOLUME 97.2 fL (81.0-99.0); MEAN PLATELET VOLUME 11.4 fl (7.4-10.4); PLATELET 251 x1000/uL (130-400); RED BLOOD CELL COUNT 2.66 mill/uL (4.2-5.4); RED CELL DISTRIBUTION WIDTH 16.6 % (11.6-14.6)
[2021-10-18 06:29] LABS: PHOSPHORUS 4.1 mg/dL (2.5-4.9)
[2021-10-18] MEDS: MEROPENEM 1,000 MG in SODIUM CHLORIDE 0.9% 100 ML IV SCH ×2 (08:26→21:09)
[2021-10-18] MEDS: PANTOPRAZOLE SODIUM 40 MG/VIAL IV SCH (08:26)
[2021-10-18] MEDS: CALCITRIOL 1MCG/ML AMP IV SCH (08:27)
[2021-10-18] MEDS: INSULIN GLARGINE UD 100 UNITS/ML SYR SUBCUT SCH ×2 (10:23→21:11)
[2021-10-18 11:36] LABS: BG BASE EXCESS 11.9 mmol/L (-2.0-2.0); BG CARBOXYHEMOGLOBIN 0.3 % (0.5-1.5); BG DEOXYHEMOGLOBIN 5.2 % (0.0-5.0); BG FRACTION INSPIRED OXYGEN 40; BG METHEMOGLOBIN 0.1 % (0.0-1.5); BG OXYGEN SATURATION 94.8 % (92.0-98.5); BG OXYHEMOGLOBIN 94.4 % (94.0-97.0); BG PCO2 45.6 mmHg (35.0-45.0); BG PH 7.515 (7.350-7.450); BG PO2 68.9 mmHg (75.0-100.0); BG SAMPLE SITE LEFT RADIAL; BG TOTAL HEMOGLOBIN 8.7 g/dL (12.0-18.0); BG VENT MODE VENT - CPAP
[2021-10-18 15:19] LABS: NUCLEATED RED BLOOD CELLS 16 /100 WBC; PLATELET ESTIMATE NORMAL
[2021-10-18] MEDS: VANCOMYCIN 750 MG PREMIX 150 ML IV SCH (19:04)
[2021-10-18] MEDS: POTASSIUM-SODIUM PHOSPHATE POWDER PACKET PO SCH (19:06)
[2021-10-19] VITALS (93 sets, daily range): BP systolic 113–179; BP diastolic 47–98
[2021-10-19] MEDS: BLOOD SUGAR DIAGNOSTIC STRIP TEST SCH ×5 (00:22→23:51)
[2021-10-19] MEDS: IPRATROPIUM/ALBUTEROL 0.5-3(2.5)MG/3ML NEB HHN SCH ×5 (03:55→20:28)
[2021-10-19 05:39] LABS: HEMATOCRIT. 25.8 % (36.0-48.0); HEMOGLOBIN. 8.1 g/dL (12.0-16.0); MEAN CORPUSCULAR HEMOGLOBIN 31.4 pg (28.0-32.0); MEAN CORPUSCULAR VOLUME 99.6 fL (81.0-99.0); PLATELET 230 x1000/uL (130-400); RED BLOOD CELL COUNT 2.59 mill/uL (4.2-5.4); RED CELL DISTRIBUTION WIDTH 16.3 % (11.6-14.6)
[2021-10-19] MEDS: HYDROCORTISONE SOD SUCCINATE 100 MG/2 ML VIAL IV SCH ×3 (05:43→22:05)
[2021-10-19] MEDS: FUROSEMIDE 40MG/4ML VIAL IVP SCH ×2 (05:43→17:15)
[2021-10-19] MEDS: INSULIN LISPRO 100 UNITS/ML SUBCUT SCH ×5 (05:44→23:51)
[2021-10-19] MEDS: MIDODRINE HCL 5MG TABLET PO SCH ×4 (05:45→22:05)
[2021-10-19 05:58] LABS: PHOSPHORUS 4.5 mg/dL (2.5-4.9)
[2021-10-19] MEDS: POTASSIUM-SODIUM PHOSPHATE POWDER PACKET PO SCH ×2 (08:30→17:15)
[2021-10-19] MEDS: PANTOPRAZOLE SODIUM 40 MG/VIAL IV SCH (08:30)
[2021-10-19] MEDS: CALCITRIOL 1MCG/ML AMP IV SCH (08:31)
[2021-10-19] MEDS: ONDANSETRON HCL 4MG/2ML INJ IV PRN (09:51)
[2021-10-19] MEDS: INSULIN GLARGINE UD 100 UNITS/ML SYR SUBCUT SCH ×2 (09:52→22:06)
[2021-10-19] MEDS ORDERED: LACTULOSE 20G/30ML UDC PO SCH (10:00)
[2021-10-19] MEDS: VANCOMYCIN 750 MG PREMIX 150 ML IV SCH (11:33)
[2021-10-19 11:44] LABS: NUCLEATED RED BLOOD CELLS 13 /100 WBC; PLATELET ESTIMATE NORMAL
[2021-10-19] MEDS ORDERED: HYDRALAZINE 20MG/ML VIAL IV PRN (12:30)
[2021-10-20] VITALS (89 sets, daily range): BP systolic 92–176; BP diastolic 45–101
[2021-10-20] MEDS: IPRATROPIUM/ALBUTEROL 0.5-3(2.5)MG/3ML NEB HHN SCH ×6 (00:17→20:16)
[2021-10-20] MEDS: INSULIN LISPRO 100 UNITS/ML SUBCUT SCH ×3 (06:00→18:00)
[2021-10-20] MEDS: MIDODRINE HCL 5MG TABLET PO SCH ×3 (06:00→22:24)
[2021-10-20] MEDS: BLOOD SUGAR DIAGNOSTIC STRIP TEST SCH ×3 (06:11→18:18)
[2021-10-20] MEDS: VANCOMYCIN 750 MG PREMIX 150 ML IV SCH (06:19)
[2021-10-20] MEDS: HYDROCORTISONE SOD SUCCINATE 100 MG/2 ML VIAL IV SCH ×3 (06:19→22:20)
[2021-10-20] MEDS: FUROSEMIDE 40MG/4ML VIAL IVP SCH ×2 (06:19→17:39)
[2021-10-20 06:55] LABS: HEMATOCRIT. 30.7 % (36.0-48.0); HEMOGLOBIN. 9.7 g/dL (12.0-16.0); MEAN CORPUSCULAR HEMOGLOBIN 32.3 pg (28.0-32.0); MEAN CORPUSCULAR VOLUME 101.9 fL (81.0-99.0); MEAN PLATELET VOLUME 11.6 fl (7.4-10.4); PLATELET 150 x1000/uL (130-400); RED BLOOD CELL COUNT 3.01 mill/uL (4.2-5.4); RED CELL DISTRIBUTION WIDTH 17.7 % (11.6-14.6)
[2021-10-20 07:48] LABS: CHLORIDE 101 mEq/L (98-107)
[2021-10-20 07:55] LABS: VANCOMYCIN TROUGH 26.8 ug/mL (5.0-10.0)
[2021-10-20] MEDS: POTASSIUM-SODIUM PHOSPHATE POWDER PACKET PO SCH ×2 (08:27→17:40)
[2021-10-20] MEDS: PANTOPRAZOLE SODIUM 40 MG/VIAL IV SCH ×2 (08:27→21:01)
[2021-10-20] MEDS: CALCITRIOL 1MCG/ML AMP IV SCH (08:28)
[2021-10-20] MEDS: INSULIN GLARGINE UD 100 UNITS/ML SYR SUBCUT SCH ×2 (09:47→22:25)
[2021-10-20 13:56] LABS: NUCLEATED RED BLOOD CELLS 9 /100 WBC; PLATELET ESTIMATE NORMAL
[2021-10-20] MEDS ORDERED: ENOXAPARIN 30MG/0.3ML SYR SUBCUT SCH (18:00)
[2021-10-20] MEDS ORDERED: FENTANYL CITRATE/PF 2,500 MCG in SODIUM CHLORIDE 0.9% 200 ML IV PRN (18:15)
[2021-10-21] VITALS (93 sets, daily range): BP systolic 99–149; BP diastolic 55–89
[2021-10-21] MEDS: BLOOD SUGAR DIAGNOSTIC STRIP TEST SCH ×4 (00:18→17:00)
[2021-10-21] MEDS: IPRATROPIUM/ALBUTEROL 0.5-3(2.5)MG/3ML NEB HHN SCH ×5 (04:15→20:44)
[2021-10-21] MEDS: FUROSEMIDE 40MG/4ML VIAL IVP SCH (05:55)
[2021-10-21] MEDS: HYDROCORTISONE SOD SUCCINATE 100 MG/2 ML VIAL IV SCH ×3 (05:55→21:25)
[2021-10-21] MEDS: VANCOMYCIN 1250MG in DEXTROSE 5% WATER 250ML IV SCH (05:56)
[2021-10-21] MEDS: MIDODRINE HCL 5MG TABLET PO SCH ×3 (05:56→21:26)
[2021-10-21 06:00] LABS: HEMATOCRIT. 28.1 % (36.0-48.0); HEMOGLOBIN. 9.1 g/dL (12.0-16.0); MEAN CORPUSCULAR HEMOGLOBIN 32.8 pg (28.0-32.0); MEAN CORPUSCULAR VOLUME 101.2 fL (81.0-99.0); MEAN PLATELET VOLUME 10.3 fl (7.4-10.4); PLATELET 210 x1000/uL (130-400); RED BLOOD CELL COUNT 2.77 mill/uL (4.2-5.4)
[2021-10-21] MEDS: INSULIN LISPRO 100 UNITS/ML SUBCUT SCH ×4 (06:00→17:00)
[2021-10-21 06:01] LABS: CHLORIDE 104 mEq/L (98-107)
[2021-10-21 06:09] LABS: PHOSPHORUS 5.4 mg/dL (2.5-4.9)
[2021-10-21] MEDS: POTASSIUM-SODIUM PHOSPHATE POWDER PACKET PO SCH ×2 (09:28→17:00)
[2021-10-21] MEDS: PANTOPRAZOLE SODIUM 40 MG/VIAL IV SCH ×2 (09:28→21:25)
[2021-10-21] MEDS: CALCITRIOL 1MCG/ML AMP IV SCH (09:28)
[2021-10-21] MEDS: INSULIN GLARGINE UD 100 UNITS/ML SYR SUBCUT SCH ×2 (09:29→22:54)
[2021-10-21] MEDS ORDERED: POTASSIUM CHLORIDE INJ 40 MEQ in DEXT 5% WATER 250 ML IV ONE (10:30)
[2021-10-21] MEDS ORDERED: POTASSIUM CHLORIDE 20MEQ/PACKET NG NR (10:30)
[2021-10-21] MEDS: KCL 20MEQ/100ML PREMIX 100 ML IV SCH ×2 (12:59→15:11)
[2021-10-21 14:08] LABS: BG BASE EXCESS 11.6 mmol/L (-2.0-2.0); BG CARBOXYHEMOGLOBIN 0.1 % (0.5-1.5); BG FRACTION INSPIRED OXYGEN 40; BG HCO3 ACT 34.4 mmol/L (22.0-26.0); BG METHEMOGLOBIN 0.3 % (0.0-1.5); BG OXYHEMOGLOBIN 96.6 % (94.0-97.0); BG PCO2 37.4 mmHg (35.0-45.0); BG PH 7.581 (7.350-7.450); BG SAMPLE SITE LEFT RADIAL; BG TOTAL HEMOGLOBIN 10.2 g/dL (12.0-18.0); BG TOTAL RESPIRATORY RATE 25 b/min; BG VENT MODE VENT - CPAP
[2021-10-21 17:37] LABS: NUCLEATED RED BLOOD CELLS 8 /100 WBC; PLATELET ESTIMATE NORMAL
[2021-10-21 21:06] LABS: HEPATITIS B SURFACE ANTIGEN NEGATIVE
[2021-10-22] VITALS (95 sets, daily range): BP systolic 96–143; BP diastolic 52–87
[2021-10-22] MEDS: IPRATROPIUM/ALBUTEROL 0.5-3(2.5)MG/3ML NEB HHN SCH ×7 (00:17→23:56)
[2021-10-22] MEDS: BLOOD SUGAR DIAGNOSTIC STRIP TEST SCH ×4 (00:23→18:57)
[2021-10-22] MEDS: INSULIN LISPRO 100 UNITS/ML SUBCUT SCH ×4 (00:43→18:58)
[2021-10-22] MEDS: MIDODRINE HCL 5MG TABLET PO SCH ×3 (06:08→21:56)
[2021-10-22] MEDS: VANCOMYCIN 1250MG in DEXTROSE 5% WATER 250ML IV SCH (06:08)
[2021-10-22] MEDS: HYDROCORTISONE SOD SUCCINATE 100 MG/2 ML VIAL IV SCH ×3 (06:08→21:55)
[2021-10-22 06:17] LABS: HEMATOCRIT. 30.2 % (36.0-48.0); HEMOGLOBIN. 9.7 g/dL (12.0-16.0); MEAN CORPUSCULAR HEMOGLOBIN 32.7 pg (28.0-32.0); MEAN CORPUSCULAR VOLUME 101.7 fL (81.0-99.0); MEAN PLATELET VOLUME 10.1 fl (7.4-10.4); PLATELET 202 x1000/uL (130-400); RED BLOOD CELL COUNT 2.97 mill/uL (4.2-5.4)
[2021-10-22 06:20] LABS: CHLORIDE 107 mEq/L (98-107)
[2021-10-22 06:27] LABS: PHOSPHORUS 4.3 mg/dL (2.5-4.9)
[2021-10-22] MEDS: PANTOPRAZOLE SODIUM 40 MG/VIAL IV SCH ×2 (08:44→21:54)
[2021-10-22] MEDS: POTASSIUM-SODIUM PHOSPHATE POWDER PACKET PO SCH ×2 (08:45→18:58)
[2021-10-22] MEDS: CALCITRIOL 1MCG/ML AMP IV SCH (08:45)
[2021-10-22] MEDS ORDERED: FUROSEMIDE 40MG/4ML VIAL IVP SCH (09:00)
[2021-10-22 09:53] LABS: BG BASE EXCESS 14.9 mmol/L (-2.0-2.0); BG CARBOXYHEMOGLOBIN 0.3 % (0.5-1.5); BG DEOXYHEMOGLOBIN 3.5 % (0.0-5.0); BG FRACTION INSPIRED OXYGEN 40; BG HCO3 ACT 38.8 mmol/L (22.0-26.0); BG METHEMOGLOBIN 0.3 % (0.0-1.5); BG OXYGEN SATURATION 96.5 % (92.0-98.5); BG OXYHEMOGLOBIN 95.9 % (94.0-97.0); BG PCO2 44.9 mmHg (35.0-45.0); BG PH 7.554 (7.350-7.450); BG PO2 83.6 mmHg (75.0-100.0); BG SAMPLE SITE LEFT RADIAL; BG TOTAL HEMOGLOBIN 10.7 g/dL (12.0-18.0); BG VENT MODE COOL AEROSOL
[2021-10-22] MEDS: INSULIN GLARGINE UD 100 UNITS/ML SYR SUBCUT SCH ×2 (10:53→21:55)
[2021-10-22] MEDS: CYANOCOBALAMIN/FA/PYRIDOXINE TABLET NG SCH (12:00)
[2021-10-22 12:19] LABS: TOTAL IRON BINDING CAPACITY 259 ug/dL (250-450)
[2021-10-22] MEDS: SUCRALFATE 1 G/10 ML UDC NG SCH ×2 (14:27→18:59)
[2021-10-22 14:30] LABS: HEMATOCRIT 31.4 % (36.0-48.0); HEMOGLOBIN 9.8 g/dL (12.0-16.0)
[2021-10-22 14:53] LABS: PARTIAL THROMBOPLASTIN TIME 24.5 sec (23.4-31.0); PROTHROMBIN TIME 10.9 sec (9.6-11.0)
[2021-10-22] MEDS ORDERED: ASPIRIN 325MG EC TABLET PO NR (16:15)
[2021-10-22 17:25] LABS: NUCLEATED RED BLOOD CELLS 9 /100 WBC
[2021-10-22 17:27] LABS: PLATELET ESTIMATE NORMAL
[2021-10-22] MEDS ORDERED: ASPIRIN 325MG TABLET PO NR (18:30)
[2021-10-22] MEDS: ACETAMINOPHEN 325MG TABLET PO PRN (20:28)
[2021-10-23] VITALS (65 sets, daily range): BP systolic 89–159; BP diastolic 35–111
[2021-10-23] MEDS: SUCRALFATE 1 G/10 ML UDC NG SCH ×4 (00:11→18:01)
[2021-10-23] MEDS: INSULIN LISPRO 100 UNITS/ML SUBCUT SCH ×5 (00:12→23:48)
[2021-10-23] MEDS: IPRATROPIUM/ALBUTEROL 0.5-3(2.5)MG/3ML NEB HHN SCH ×6 (04:17→23:59)
[2021-10-23] MEDS: MIDODRINE HCL 5MG TABLET PO SCH ×3 (06:00→21:30)
[2021-10-23 06:19] LABS: HEMATOCRIT. 30.1 % (36.0-48.0); HEMOGLOBIN. 9.6 g/dL (12.0-16.0); MEAN CORPUSCULAR HEMOGLOBIN 32.6 pg (28.0-32.0); MEAN CORPUSCULAR VOLUME 101.9 fL (81.0-99.0); MEAN PLATELET VOLUME 10.8 fl (7.4-10.4); PLATELET 213 x1000/uL (130-400); RED BLOOD CELL COUNT 2.95 mill/uL (4.2-5.4); RED CELL DISTRIBUTION WIDTH 22.3 % (11.6-14.6)
[2021-10-23] MEDS: BLOOD SUGAR DIAGNOSTIC STRIP TEST SCH ×5 (06:28→23:48)
[2021-10-23 06:29] LABS: CHLORIDE 106 mEq/L (98-107)
[2021-10-23] MEDS: VANCOMYCIN 1250MG in DEXTROSE 5% WATER 250ML IV SCH (06:30)
[2021-10-23] MEDS: HYDROCORTISONE SOD SUCCINATE 100 MG/2 ML VIAL IV SCH ×3 (06:30→21:29)
[2021-10-23 06:48] LABS: PHOSPHORUS 3.2 mg/dL (2.5-4.9)
[2021-10-23] MEDS: PANTOPRAZOLE SODIUM 40 MG/VIAL IV SCH ×2 (09:04→21:29)
[2021-10-23] MEDS: ASPIRIN 81MG TABLET PO SCH (09:04)
[2021-10-23] MEDS: CALCITRIOL 1MCG/ML AMP IV SCH (09:05)
[2021-10-23] MEDS: POTASSIUM-SODIUM PHOSPHATE POWDER PACKET PO SCH ×2 (09:05→18:01)
[2021-10-23] MEDS: INSULIN GLARGINE UD 100 UNITS/ML SYR SUBCUT SCH ×2 (09:07→22:00)
[2021-10-23 09:29] LABS: PLATELET ESTIMATE NORMAL
[2021-10-23] MEDS ORDERED: HEPARIN 1000 UNITS/ML 10ML ONE (09:57)
[2021-10-23] MEDS ORDERED: VERAPAMIL HCL 2.5 MG/1 ML 2ML VIAL IV ONE (09:57)
[2021-10-23] MEDS ORDERED: FENTANYL CITRATE/PF 50MCG/ML 2ML VIAL ONE (09:57)
[2021-10-23] MEDS ORDERED: MIDAZOLAM HCL 2 MG/2 ML VIAL ONE (09:58)
[2021-10-23] MEDS ORDERED: IODIXANOL 320MG/ML 100 ML BOTTLE IV ONE (09:58)
[2021-10-23] MEDS ORDERED: LIDOCAINE HCL 1% 10 MG/ML 10ML VIAL ONE (09:58)
[2021-10-23] MEDS ORDERED: KCL 20MEQ/100ML PREMIX 100 ML IV SCH (11:00)
[2021-10-23] MEDS: GUAIFENESIN 200MG/10ML SUGAR FREE UDC PO SCH ×2 (12:14→18:01)
[2021-10-23] MEDS: CYANOCOBALAMIN/FA/PYRIDOXINE TABLET NG SCH (14:48)
[2021-10-23 18:26] LABS: HEMATOCRIT 31.6 % (36.0-48.0); HEMOGLOBIN 9.9 g/dL (12.0-16.0)
[2021-10-23] MEDS: CALCIUM 1250MG TABLET (500MG ELEMENTAL CALCIUM) PO SCH (21:29)
[2021-10-24] VITALS (70 sets, daily range): BP systolic 97–161; BP diastolic 25–85
[2021-10-24] MEDS: SUCRALFATE 1 G/10 ML UDC NG SCH ×4 (00:01→17:41)
[2021-10-24] MEDS: GUAIFENESIN 200MG/10ML SUGAR FREE UDC PO SCH ×4 (00:02→17:41)
[2021-10-24] MEDS: IPRATROPIUM/ALBUTEROL 0.5-3(2.5)MG/3ML NEB HHN SCH ×4 (04:17→20:21)
[2021-10-24] MEDS: BLOOD SUGAR DIAGNOSTIC STRIP TEST SCH ×3 (05:27→17:36)
[2021-10-24] MEDS: INSULIN LISPRO 100 UNITS/ML SUBCUT SCH ×3 (05:27→17:36)
[2021-10-24 05:52] LABS: HEMATOCRIT. 29.8 % (36.0-48.0); HEMOGLOBIN. 9.5 g/dL (12.0-16.0); MEAN CORPUSCULAR HEMOGLOBIN 31.9 pg (28.0-32.0); MEAN PLATELET VOLUME 9.9 fl (7.4-10.4); PLATELET 232 x1000/uL (130-400); RED BLOOD CELL COUNT 2.98 mill/uL (4.2-5.4); RED CELL DISTRIBUTION WIDTH 21.5 % (11.6-14.6)
[2021-10-24 05:58] LABS: CHLORIDE 109 mEq/L (98-107)
[2021-10-24 06:07] LABS: PHOSPHORUS 2.4 mg/dL (2.5-4.9)
[2021-10-24] MEDS: HYDROCORTISONE SOD SUCCINATE 100 MG/2 ML VIAL IV SCH ×3 (06:39→21:23)
[2021-10-24] MEDS: MIDODRINE HCL 5MG TABLET PO SCH ×3 (06:39→21:23)
[2021-10-24] MEDS ORDERED: POTASSIUM CHLORIDE INJ 60 MEQ in DEXT 5% WATER 250 ML IV ONE (07:15)
[2021-10-24 08:19] LABS: NUCLEATED RED BLOOD CELLS 2 /100 WBC; PLATELET ESTIMATE NORMAL
[2021-10-24] MEDS: POTASSIUM-SODIUM PHOSPHATE POWDER PACKET PO SCH ×2 (08:40→17:41)
[2021-10-24] MEDS: PANTOPRAZOLE SODIUM 40 MG/VIAL IV SCH ×2 (08:40→21:23)
[2021-10-24] MEDS: ASPIRIN 81MG TABLET PO SCH (08:40)
[2021-10-24] MEDS: CALCITRIOL 1MCG/ML AMP IV SCH (08:40)
[2021-10-24] MEDS ORDERED: POTASSIUM CHLORIDE INJ 40 MEQ in DEXT 5% WATER 250 ML IV SCH (09:00)
[2021-10-24 09:03] LABS: BG CARBOXYHEMOGLOBIN 0.1 % (0.5-1.5); BG DEOXYHEMOGLOBIN 5.5 % (0.0-5.0); BG FRACTION INSPIRED OXYGEN 70; BG HCO3 ACT 35.9 mmol/L (22.0-26.0); BG METHEMOGLOBIN 0.2 % (0.0-1.5); BG OXYGEN SATURATION 94.5 % (92.0-98.5); BG OXYHEMOGLOBIN 94.2 % (94.0-97.0); BG PH 7.582 (7.350-7.450); BG PO2 69.8 mmHg (75.0-100.0); BG SAMPLE SITE LEFT RADIAL; BG TOTAL HEMOGLOBIN 10.7 g/dL (12.0-18.0); BG VENT MODE MASK - BIPAP
[2021-10-24] MEDS: INSULIN GLARGINE UD 100 UNITS/ML SYR SUBCUT SCH ×2 (10:00→21:25)
[2021-10-24] MEDS: DEXTROSE 5% WATER 1,000 ML IV SCH (10:27)
[2021-10-24] MEDS ORDERED: KCL 20MEQ/100ML PREMIX 100 ML IV SCH (13:00)
[2021-10-24] MEDS ORDERED: VANCOMYCIN 1250MG in DEXTROSE 5% WATER 250ML IV SCH (18:00)
[2021-10-24 19:33] LABS: HEMATOCRIT 27.8 % (36.0-48.0); HEMOGLOBIN 8.6 g/dL (12.0-16.0)
[2021-10-24 20:24] LABS: CHLORIDE 107 mEq/L (98-107)
[2021-10-24] MEDS ORDERED: POTASSIUM CHLORIDE INJ 40 MEQ in DEXT 5% WATER 250 ML IV NR (22:00)
[2021-10-25] VITALS (57 sets, daily range): BP systolic 102–132; BP diastolic 38–75
[2021-10-25] MEDS: SUCRALFATE 1 G/10 ML UDC NG SCH ×4 (00:03→18:31)
[2021-10-25] MEDS: IPRATROPIUM/ALBUTEROL 0.5-3(2.5)MG/3ML NEB HHN SCH ×6 (00:07→20:09)
[2021-10-25] MEDS: ACETYLCYSTEINE 100MG/ML 10% VIAL 4ML INH SCH ×3 (00:07→15:49)
[2021-10-25] MEDS: GUAIFENESIN 200MG/10ML SUGAR FREE UDC PO SCH ×5 (00:13→18:31)
[2021-10-25] MEDS ORDERED: POTASSIUM CHLORIDE INJ 40 MEQ in DEXT 5% WATER 250 ML IV NR ×2 (03:00→13:30)
[2021-10-25 04:44] LABS: HEMATOCRIT. 25.9 % (36.0-48.0); HEMOGLOBIN. 8.4 g/dL (12.0-16.0); MEAN CORPUSCULAR HEMOGLOBIN 32.4 pg (28.0-32.0); MEAN PLATELET VOLUME 9.8 fl (7.4-10.4); PLATELET 234 x1000/uL (130-400); RED BLOOD CELL COUNT 2.59 mill/uL (4.2-5.4); RED CELL DISTRIBUTION WIDTH 21.1 % (11.6-14.6)
[2021-10-25 04:54] LABS: CHLORIDE 108 mEq/L (98-107)
[2021-10-25 05:01] LABS: PHOSPHORUS 2.1 mg/dL (2.5-4.9)
[2021-10-25] MEDS: INSULIN LISPRO 100 UNITS/ML SUBCUT SCH ×4 (05:43→18:00)
[2021-10-25] MEDS: BLOOD SUGAR DIAGNOSTIC STRIP TEST SCH ×4 (05:43→18:31)
[2021-10-25] MEDS: DEXTROSE 5% WATER 1,000 ML IV SCH (05:48)
[2021-10-25] MEDS: MIDODRINE HCL 5MG TABLET PO SCH ×3 (05:48→22:36)
[2021-10-25] MEDS: HYDROCORTISONE SOD SUCCINATE 100 MG/2 ML VIAL IV SCH ×3 (05:48→22:35)
[2021-10-25] MEDS: PANTOPRAZOLE SODIUM 40 MG/VIAL IV SCH ×2 (09:00→21:12)
[2021-10-25] MEDS: POTASSIUM-SODIUM PHOSPHATE POWDER PACKET PO SCH ×2 (09:00→17:00)
[2021-10-25] MEDS: CALCITRIOL 1MCG/ML AMP IV SCH (09:00)
[2021-10-25 09:31] LABS: NUCLEATED RED BLOOD CELLS 3 /100 WBC; PLATELET ESTIMATE NORMAL
[2021-10-25 10:47] LABS: HEMATOCRIT 27.7 % (36.0-48.0); HEMOGLOBIN 8.8 g/dL (12.0-16.0)
[2021-10-25] MEDS ORDERED: POTASSIUM PHOS,M-BASIC-D-BASIC 15 MMOL in DEXT 5% WATER 245 ML IV NR (13:30)
[2021-10-25 15:04] LABS: BG BASE EXCESS 10.4 mmol/L (-2.0-2.0); BG CARBOXYHEMOGLOBIN 0.4 % (0.5-1.5); BG DEOXYHEMOGLOBIN 1.8 % (0.0-5.0); BG FRACTION INSPIRED OXYGEN 50; BG HCO3 ACT 33.4 mmol/L (22.0-26.0); BG METHEMOGLOBIN 0.3 % (0.0-1.5); BG OXYGEN SATURATION 98.2 % (92.0-98.5); BG OXYHEMOGLOBIN 97.5 % (94.0-97.0); BG PCO2 37.8 mmHg (35.0-45.0); BG PH 7.564 (7.350-7.450); BG PO2 113.6 mmHg (75.0-100.0); BG SAMPLE SITE LEFT RADIAL; BG TOTAL HEMOGLOBIN 8.5 g/dL (12.0-18.0); BG TOTAL RESPIRATORY RATE 27 b/min; BG VENT MODE MASK - BIPAP
[2021-10-26] VITALS (92 sets, daily range): BP systolic 108–180; BP diastolic 24–96
[2021-10-26] MEDS: GUAIFENESIN 200MG/10ML SUGAR FREE UDC PO SCH ×4 (00:04→17:34)
[2021-10-26] MEDS: BLOOD SUGAR DIAGNOSTIC STRIP TEST SCH ×4 (00:04→17:14)
[2021-10-26] MEDS: SUCRALFATE 1 G/10 ML UDC NG SCH ×4 (00:04→17:34)
[2021-10-26] MEDS: ACETYLCYSTEINE 100MG/ML 10% VIAL 4ML INH SCH ×3 (00:05→15:44)
[2021-10-26] MEDS: IPRATROPIUM/ALBUTEROL 0.5-3(2.5)MG/3ML NEB HHN SCH ×6 (00:06→20:15)
[2021-10-26] MEDS: DEXTROSE 5% WATER 1,000 ML IV SCH ×3 (04:04→22:55)
[2021-10-26] MEDS: INSULIN LISPRO 100 UNITS/ML SUBCUT SCH ×4 (06:00→17:14)
[2021-10-26] MEDS: MIDODRINE HCL 5MG TABLET PO SCH ×3 (06:01→21:58)
[2021-10-26] MEDS: HYDROCORTISONE SOD SUCCINATE 100 MG/2 ML VIAL IV SCH ×3 (06:01→21:58)
[2021-10-26 06:44] LABS: BASOPHILS % 0.3 % (0.0-2.0); EOSINOPHILS % 0.2 % (0.0-5.0); HEMATOCRIT. 27.5 % (36.0-48.0); MEAN CORPUSCULAR HEMOGLOBIN 32.6 pg (28.0-32.0); MONOCYTES % 10.5 % (2.0-8.0); PLATELET 281 x1000/uL (130-400); RED BLOOD CELL COUNT 2.75 mill/uL (4.2-5.4); RED CELL DISTRIBUTION WIDTH 20.8 % (11.6-14.6)
[2021-10-26 06:47] LABS: CHLORIDE 90 mEq/L (98-107)
[2021-10-26 06:58] LABS: PHOSPHORUS 2.1 mg/dL (2.5-4.9)
[2021-10-26] MEDS: PANTOPRAZOLE SODIUM 40 MG/VIAL IV SCH ×2 (08:31→21:15)
[2021-10-26] MEDS: CALCITRIOL 1MCG/ML AMP IV SCH (08:31)
[2021-10-26] MEDS: POTASSIUM-SODIUM PHOSPHATE POWDER PACKET PO SCH ×2 (08:31→17:34)
[2021-10-26] MEDS ORDERED: POTASSIUM CHLORIDE INJ 40 MEQ in DEXT 5% WATER 250 ML IV ONE ×2 (10:00→14:00)
[2021-10-26] MEDS ORDERED: MAGNESIUM 4 G PREMIX 100 ML IV ONE (10:00)
[2021-10-26] MEDS ORDERED: POTASSIUM PHOS,M-BASIC-D-BASIC 15 MMOL in DEXT 5% WATER 245 ML IV NR (10:30)
[2021-10-26 10:37] LABS: BG CARBOXYHEMOGLOBIN 0.1 % (0.5-1.5); BG DEOXYHEMOGLOBIN 5.7 % (0.0-5.0); BG FRACTION INSPIRED OXYGEN 35; BG HCO3 ACT 33.9 mmol/L (22.0-26.0); BG METHEMOGLOBIN 0.2 % (0.0-1.5); BG OXYGEN SATURATION 94.3 % (92.0-98.5); BG PH 7.568 (7.350-7.450); BG PO2 70.1 mmHg (75.0-100.0); BG SAMPLE SITE RIGHT BRACHIAL; BG TOTAL HEMOGLOBIN 9.8 g/dL (12.0-18.0); BG TOTAL RESPIRATORY RATE 25 b/min; BG VENT MODE MASK - BIPAP
[2021-10-26 10:56] LABS: CHLORIDE 105 mEq/L (98-107)
[2021-10-27] VITALS (57 sets, daily range): BP systolic 12–142; BP diastolic 23–81
[2021-10-27] MEDS: ACETYLCYSTEINE 100MG/ML 10% VIAL 4ML INH SCH ×3 (00:12→15:35)
[2021-10-27] MEDS: IPRATROPIUM/ALBUTEROL 0.5-3(2.5)MG/3ML NEB HHN SCH ×6 (00:12→20:59)
[2021-10-27] MEDS: BLOOD SUGAR DIAGNOSTIC STRIP TEST SCH ×4 (00:26→18:00)
[2021-10-27] MEDS: GUAIFENESIN 200MG/10ML SUGAR FREE UDC PO SCH ×4 (00:27→18:00)
[2021-10-27] MEDS: SUCRALFATE 1 G/10 ML UDC NG SCH ×4 (00:27→18:00)
[2021-10-27] MEDS: INSULIN LISPRO 100 UNITS/ML SUBCUT SCH ×4 (00:27→18:00)
[2021-10-27] MEDS: HYDROCORTISONE SOD SUCCINATE 100 MG/2 ML VIAL IV SCH ×2 (05:33→18:00)
[2021-10-27] MEDS: MIDODRINE HCL 5MG TABLET PO SCH ×3 (05:49→22:09)
[2021-10-27 06:00] LABS: BASOPHILS % 0.4 % (0.0-2.0); EOSINOPHILS % 1.8 % (0.0-5.0); HEMATOCRIT. 26.6 % (36.0-48.0); HEMOGLOBIN. 8.7 g/dL (12.0-16.0); LYMPHOCYTES % 16.3 % (20.0-50.0); MEAN CORPUSCULAR HEMOGLOBIN 32.5 pg (28.0-32.0); MEAN CORPUSCULAR VOLUME 99.6 fL (81.0-99.0); MONOCYTES % 9.4 % (2.0-8.0); NEUTROPHILS % 72.1 % (40.0-76.0); PLATELET 329 x1000/uL (130-400); RED BLOOD CELL COUNT 2.67 mill/uL (4.2-5.4); RED CELL DISTRIBUTION WIDTH 21.6 % (11.6-14.6)
[2021-10-27 06:20] LABS: CHLORIDE 103 mEq/L (98-107)
[2021-10-27 06:25] LABS: PHOSPHORUS 2.7 mg/dL (2.5-4.9)
[2021-10-27] MEDS: POTASSIUM-SODIUM PHOSPHATE POWDER PACKET PO SCH ×2 (09:47→17:00)
[2021-10-27] MEDS: CALCITRIOL 1MCG/ML AMP IV SCH (09:47)
[2021-10-27] MEDS: PANTOPRAZOLE SODIUM 40 MG/VIAL IV SCH ×2 (09:47→20:43)
[2021-10-27] MEDS ORDERED: KCL 20MEQ/100ML PREMIX 100 ML IV NR (13:00)
[2021-10-27] MEDS: DEXTROSE 5% WATER 1,000 ML IV SCH (23:27)
[2021-10-28] VITALS (53 sets, daily range): BP systolic 51–150; BP diastolic 16–110
[2021-10-28] MEDS: ACETYLCYSTEINE 100MG/ML 10% VIAL 4ML INH SCH ×3 (00:10→16:44)
[2021-10-28] MEDS: IPRATROPIUM/ALBUTEROL 0.5-3(2.5)MG/3ML NEB HHN SCH ×6 (00:10→20:43)
[2021-10-28] MEDS: BLOOD SUGAR DIAGNOSTIC STRIP TEST SCH ×6 (00:11→23:24)
[2021-10-28] MEDS: SUCRALFATE 1 G/10 ML UDC NG SCH ×5 (00:12→23:23)
[2021-10-28] MEDS: GUAIFENESIN 200MG/10ML SUGAR FREE UDC PO SCH ×5 (00:12→23:27)
[2021-10-28] MEDS: ACETAMINOPHEN 325MG TABLET PO PRN ×2 (01:32→21:01)
[2021-10-28] MEDS: MIDODRINE HCL 5MG TABLET PO SCH ×3 (05:44→21:02)
[2021-10-28] MEDS: HYDROCORTISONE SOD SUCCINATE 100 MG/2 ML VIAL IV SCH ×2 (05:45→17:40)
[2021-10-28] MEDS: INSULIN LISPRO 100 UNITS/ML SUBCUT SCH ×3 (06:00→11:25)
[2021-10-28 06:16] LABS: BASOPHILS % 0.3 % (0.0-2.0); EOSINOPHILS % 5.3 % (0.0-5.0); HEMATOCRIT. 27.4 % (36.0-48.0); HEMOGLOBIN. 8.9 g/dL (12.0-16.0); LYMPHOCYTES % 21.4 % (20.0-50.0); MEAN CORPUSCULAR HEMOGLOBIN 33.1 pg (28.0-32.0); MEAN CORPUSCULAR VOLUME 102.2 fL (81.0-99.0); MEAN PLATELET VOLUME 9.6 fl (7.4-10.4); MONOCYTES % 5.1 % (2.0-8.0); NEUTROPHILS % 67.9 % (40.0-76.0); PLATELET 338 x1000/uL (130-400); RED BLOOD CELL COUNT 2.68 mill/uL (4.2-5.4); RED CELL DISTRIBUTION WIDTH 21.2 % (11.6-14.6)
[2021-10-28] MEDS: DEXTROSE 50% WATER 50ML SYRINGE IV PRN (06:25)
[2021-10-28 06:41] LABS: CHLORIDE 105 mEq/L (98-107)
[2021-10-28 06:58] LABS: T4 FREE 0.57 ng/dL (0.76-1.46)
[2021-10-28 08:40] LABS: BG BASE EXCESS 0.2 mmol/L (-2.0-2.0); BG CARBOXYHEMOGLOBIN 0.3 % (0.5-1.5); BG DEOXYHEMOGLOBIN 0.2 % (0.0-5.0); BG FRACTION INSPIRED OXYGEN 100; BG HCO3 ACT 21.8 mmol/L (22.0-26.0); BG METHEMOGLOBIN 0.3 % (0.0-1.5); BG OXYGEN SATURATION 99.8 % (92.0-98.5); BG OXYHEMOGLOBIN 99.2 % (94.0-97.0); BG PCO2 25.5 mmHg (35.0-45.0); BG PO2 329.2 mmHg (75.0-100.0); BG SAMPLE SITE LEFT RADIAL; BG TOTAL HEMOGLOBIN 9.4 g/dL (12.0-18.0); BG TOTAL RESPIRATORY RATE 32 b/min; BG VENT MODE MASK - BIPAP
[2021-10-28] MEDS: CALCITRIOL 1MCG/ML AMP IV SCH (09:32)
[2021-10-28] MEDS: POTASSIUM-SODIUM PHOSPHATE POWDER PACKET PO SCH ×2 (09:32→17:40)
[2021-10-28] MEDS: PANTOPRAZOLE SODIUM 40 MG/VIAL IV SCH ×2 (09:32→21:01)
[2021-10-28] MEDS ORDERED: POTASSIUM PHOS,M-BASIC-D-BASIC 15 MMOL in DEXT 5% WATER 250 ML IV SCH (11:00)
[2021-10-28] MEDS ORDERED: POTASSIUM CHLORIDE INJ 40 MEQ in DEXT 5% WATER 250 ML IV SCH ×2 (11:00→15:00)
[2021-10-28] MEDS: INSULIN LISPRO (LOW DOSE) 100 UNITS/ML SUBCUT SCH ×3 (11:34→23:24)
[2021-10-28] MEDS: LEVOTHYROXINE SODIUM 25MCG TABLET PO SCH (11:45)
[2021-10-28] MEDS ORDERED: INSULIN LISPRO 100 UNITS/ML SUBCUT SCH (12:00)
[2021-10-28] MEDS ORDERED: DEXTROSE 50% WATER 50ML SYRINGE IV PRN (12:15)
[2021-10-28] MEDS ORDERED: SODIUM CHLORIDE 0.9% 250 ML IV NR (17:22)
[2021-10-28] MEDS: DEXTROSE 5% WATER 1,000 ML IV SCH (21:02)
[2021-10-29] VITALS (12 sets, daily range): BP systolic 87–120; BP diastolic 45–71
[2021-10-29] MEDS: ACETYLCYSTEINE 100MG/ML 10% VIAL 4ML INH SCH ×3 (00:08→12:53)
[2021-10-29] MEDS: IPRATROPIUM/ALBUTEROL 0.5-3(2.5)MG/3ML NEB HHN SCH ×6 (00:09→20:50)
[2021-10-29] MEDS: INSULIN LISPRO (LOW DOSE) 100 UNITS/ML SUBCUT SCH ×3 (06:00→17:45)
[2021-10-29] MEDS: SUCRALFATE 1 G/10 ML UDC NG SCH ×3 (06:03→17:40)
[2021-10-29] MEDS: GUAIFENESIN 200MG/10ML SUGAR FREE UDC PO SCH ×3 (06:03→17:40)
[2021-10-29] MEDS: BLOOD SUGAR DIAGNOSTIC STRIP TEST SCH ×3 (06:04→17:44)
[2021-10-29] MEDS: MIDODRINE HCL 5MG TABLET PO SCH ×3 (06:04→20:38)
[2021-10-29] MEDS: HYDROCORTISONE SOD SUCCINATE 100 MG/2 ML VIAL IV SCH ×2 (06:04→17:40)
[2021-10-29] MEDS: POTASSIUM-SODIUM PHOSPHATE POWDER PACKET PO SCH ×2 (08:17→17:45)
[2021-10-29] MEDS: PANTOPRAZOLE SODIUM 40 MG/VIAL IV SCH ×2 (08:17→20:37)
[2021-10-29] MEDS: LEVOTHYROXINE SODIUM 25MCG TABLET PO SCH (08:17)
[2021-10-29 09:54] LABS: BASOPHILS % 0.3 % (0.0-2.0); EOSINOPHILS % 1.3 % (0.0-5.0); HEMOGLOBIN. 8.5 g/dL (12.0-16.0); LYMPHOCYTES % 12.8 % (20.0-50.0); MEAN CORPUSCULAR VOLUME 100.8 fL (81.0-99.0); MONOCYTES % 7.2 % (2.0-8.0); NEUTROPHILS % 78.4 % (40.0-76.0); PLATELET 299 x1000/uL (130-400); RED BLOOD CELL COUNT 2.58 mill/uL (4.2-5.4); RED CELL DISTRIBUTION WIDTH 21.2 % (11.6-14.6)
[2021-10-29] MEDS ORDERED: POTASSIUM CHLORIDE INJ 40 MEQ in DEXT 5% WATER 250 ML IV SCH (10:00)
[2021-10-29 10:01] LABS: CHLORIDE 107 mEq/L (98-107)
[2021-10-29 10:09] LABS: PHOSPHORUS 3.2 mg/dL (2.5-4.9)
[2021-10-29] MEDS: CALCITRIOL 1MCG/ML AMP IV SCH (11:11)
[2021-10-29] MEDS ORDERED: NALOXONE HCL 0.4MG/ML VIAL IV PRN (16:00)
[2021-10-30] VITALS (12 sets, daily range): BP systolic 90–149; BP diastolic 41–85
[2021-10-30] MEDS: SUCRALFATE 1 G/10 ML UDC NG SCH ×4 (00:34→17:50)
[2021-10-30] MEDS: GUAIFENESIN 200MG/10ML SUGAR FREE UDC PO SCH ×4 (00:34→17:50)
[2021-10-30] MEDS: IPRATROPIUM/ALBUTEROL 0.5-3(2.5)MG/3ML NEB HHN SCH ×5 (00:42→21:22)
[2021-10-30] MEDS: MIDODRINE HCL 5MG TABLET PO SCH ×3 (05:40→21:06)
[2021-10-30] MEDS: HYDROCORTISONE SOD SUCCINATE 100 MG/2 ML VIAL IV SCH ×2 (05:40→17:50)
[2021-10-30] MEDS: BLOOD SUGAR DIAGNOSTIC STRIP TEST SCH ×4 (05:49→18:00)
[2021-10-30] MEDS: INSULIN LISPRO (LOW DOSE) 100 UNITS/ML SUBCUT SCH ×4 (05:51→18:00)
[2021-10-30 06:01] LABS: BASOPHILS % 0.3 % (0.0-2.0); EOSINOPHILS % 0.6 % (0.0-5.0); HEMOGLOBIN. 8.5 g/dL (12.0-16.0); LYMPHOCYTES % 24.7 % (20.0-50.0); MEAN CORPUSCULAR HEMOGLOBIN 32.7 pg (28.0-32.0); MEAN CORPUSCULAR VOLUME 99.8 fL (81.0-99.0); MEAN PLATELET VOLUME 8.9 fl (7.4-10.4); MONOCYTES % 9.1 % (2.0-8.0); NEUTROPHILS % 65.3 % (40.0-76.0); PLATELET 321 x1000/uL (130-400); RED BLOOD CELL COUNT 2.61 mill/uL (4.2-5.4); RED CELL DISTRIBUTION WIDTH 20.7 % (11.6-14.6)
[2021-10-30 06:16] LABS: CHLORIDE 108 mEq/L (98-107)
[2021-10-30 06:24] LABS: PHOSPHORUS 2.8 mg/dL (2.5-4.9)
[2021-10-30] MEDS ORDERED: POTASSIUM CHLORIDE 20MEQ TABLET SR PO NR (07:15)
[2021-10-30] MEDS: LEVOTHYROXINE SODIUM 25MCG TABLET PO SCH (07:56)
[2021-10-30] MEDS: POTASSIUM-SODIUM PHOSPHATE POWDER PACKET PO SCH ×2 (08:00→17:50)
[2021-10-30] MEDS: PANTOPRAZOLE SODIUM 40 MG/VIAL IV SCH ×2 (08:00→21:06)
[2021-10-30] MEDS: CALCITRIOL 1MCG/ML AMP IV SCH (08:04)
[2021-10-30] MEDS: MORPHINE SULFATE 2 MG/ML CPJ (NOT FOR IM USE) IV PRN (16:10)
[2021-10-30] MEDS: MIRTAZAPINE 15MG TABLET PO SCH (21:07)
[2021-10-30] MEDS: CALCIUM 1250MG TABLET (500MG ELEMENTAL CALCIUM) PO SCH (21:07)
[2021-10-30] MEDS: ACETYLCYSTEINE 100MG/ML 10% VIAL 4ML INH SCH (21:26)
[2021-10-31] VITALS (11 sets, daily range): BP systolic 91–152; BP diastolic 42–98
[2021-10-31] MEDS: IPRATROPIUM/ALBUTEROL 0.5-3(2.5)MG/3ML NEB HHN SCH ×6 (00:49→21:16)
[2021-10-31] MEDS: SUCRALFATE 1 G/10 ML UDC NG SCH ×5 (01:06→23:16)
[2021-10-31] MEDS: GUAIFENESIN 200MG/10ML SUGAR FREE UDC PO SCH ×5 (01:06→23:15)
[2021-10-31] MEDS: MIDODRINE HCL 5MG TABLET PO SCH ×3 (05:22→23:15)
[2021-10-31] MEDS: HYDROCORTISONE SOD SUCCINATE 100 MG/2 ML VIAL IV SCH (05:22)
[2021-10-31] MEDS: DEXTROSE 50% WATER 50ML SYRINGE IV PRN (05:31)
[2021-10-31] MEDS: BLOOD SUGAR DIAGNOSTIC STRIP TEST SCH ×5 (05:50→23:16)
[2021-10-31] MEDS: INSULIN LISPRO (LOW DOSE) 100 UNITS/ML SUBCUT SCH ×5 (05:50→23:16)
[2021-10-31 06:47] LABS: BASOPHILS % 0.1 % (0.0-2.0); EOSINOPHILS % 5.9 % (0.0-5.0); HEMATOCRIT. 26.7 % (36.0-48.0); HEMOGLOBIN. 8.4 g/dL (12.0-16.0); MEAN CORPUSCULAR HEMOGLOBIN 31.8 pg (28.0-32.0); MEAN CORPUSCULAR VOLUME 100.9 fL (81.0-99.0); MONOCYTES % 5.1 % (2.0-8.0); NEUTROPHILS % 60.9 % (40.0-76.0); RED BLOOD CELL COUNT 2.64 mill/uL (4.2-5.4); RED CELL DISTRIBUTION WIDTH 21.2 % (11.6-14.6)
[2021-10-31 07:01] LABS: CHLORIDE 111 mEq/L (98-107)
[2021-10-31] MEDS: LEVOTHYROXINE SODIUM 25MCG TABLET PO SCH (08:24)
[2021-10-31] MEDS: PANTOPRAZOLE SODIUM 40 MG/VIAL IV SCH ×2 (08:43→20:34)
[2021-10-31] MEDS: CALCITRIOL 1MCG/ML AMP IV SCH (08:44)
[2021-10-31] MEDS: POTASSIUM-SODIUM PHOSPHATE POWDER PACKET PO SCH ×2 (08:44→17:28)
[2021-10-31] MEDS: HYDROCORTISONE 10MG TABLET PO SCH ×2 (08:46→17:28)
[2021-10-31] MEDS: ACETAMINOPHEN 325MG TABLET PO PRN (08:50)
[2021-10-31 09:25] LABS: PLATELET 279 x1000/uL (130-400)
[2021-10-31 13:42] LABS: BG BASE EXCESS 2.4 mmol/L (-2.0-2.0); BG CARBOXYHEMOGLOBIN 0.7 % (0.5-1.5); BG DEOXYHEMOGLOBIN 6.7 % (0.0-5.0); BG HCO3 ACT 25.5 mmol/L (22.0-26.0); BG METHEMOGLOBIN 0.3 % (0.0-1.5); BG OXYGEN SATURATION 93.2 % (92.0-98.5); BG OXYHEMOGLOBIN 92.3 % (94.0-97.0); BG PCO2 33.2 mmHg (35.0-45.0); BG PH 7.504 (7.350-7.450); BG PO2 70.6 mmHg (75.0-100.0); BG SAMPLE SITE RIGHT BRACHIAL; BG VENT MODE NASAL CANNULA
[2021-10-31] MEDS: MEROPENEM 1,000 MG in SODIUM CHLORIDE 0.9% 100 ML IV SCH ×2 (17:28→23:15)
[2021-10-31] MEDS: MORPHINE SULFATE 2 MG/ML CPJ (NOT FOR IM USE) IV PRN ×2 (17:34→23:20)
[2021-10-31 19:07] LABS: CLARITY URINE TURBID (CLEAR); COLOR URINE DARK YELLOW (YELLOW); KETONES URINE NEGATIVE (NEGATIVE); LEUKOCYTE ESTERASE URINE 2+ (NEGATIVE); NITRITE URINE NEGATIVE (NEGATIVE); OCCULT BLOOD URINE 2+ (NEGATIVE); PROTEIN URINE 1+ (NEGATIVE); SPECIFIC GRAVITY URINE 1.022 (1.005-1.030)
[2021-10-31] MEDS: MIRTAZAPINE 15MG TABLET PO SCH (20:34)
[2021-11-01] VITALS (8 sets, daily range): BP systolic 119–152; BP diastolic 65–85
[2021-11-01] MEDS: IPRATROPIUM/ALBUTEROL 0.5-3(2.5)MG/3ML NEB HHN SCH ×5 (01:25→19:55)
[2021-11-01] MEDS: MEROPENEM 1,000 MG in SODIUM CHLORIDE 0.9% 100 ML IV SCH ×3 (05:28→20:15)
[2021-11-01] MEDS: GUAIFENESIN 200MG/10ML SUGAR FREE UDC PO SCH ×4 (05:28→23:18)
[2021-11-01] MEDS: SUCRALFATE 1 G/10 ML UDC NG SCH ×4 (05:28→23:18)
[2021-11-01] MEDS: INSULIN LISPRO (LOW DOSE) 100 UNITS/ML SUBCUT SCH ×4 (05:29→23:19)
[2021-11-01] MEDS: BLOOD SUGAR DIAGNOSTIC STRIP TEST SCH ×4 (05:29→23:18)
[2021-11-01] MEDS: MIDODRINE HCL 5MG TABLET PO SCH ×3 (05:29→22:00)
[2021-11-01] MEDS: PANTOPRAZOLE SODIUM 40 MG/VIAL IV SCH ×2 (08:00→20:15)
[2021-11-01] MEDS: HYDROCORTISONE 10MG TABLET PO SCH ×2 (08:00→17:01)
[2021-11-01] MEDS: POTASSIUM-SODIUM PHOSPHATE POWDER PACKET PO SCH ×2 (08:00→17:00)
[2021-11-01] MEDS: LEVOTHYROXINE SODIUM 25MCG TABLET PO SCH (08:00)
[2021-11-01] MEDS: CALCITRIOL 1MCG/ML AMP IV SCH (08:01)
[2021-11-01] MEDS: MORPHINE SULFATE 2 MG/ML CPJ (NOT FOR IM USE) IV PRN ×2 (08:21→20:17)
[2021-11-01 11:36] LABS: BASOPHILS % 0.5 % (0.0-2.0); EOSINOPHILS % 8.3 % (0.0-5.0); HEMATOCRIT. 23.6 % (36.0-48.0); HEMOGLOBIN. 7.4 g/dL (12.0-16.0); LYMPHOCYTES % 26.6 % (20.0-50.0); MEAN CORPUSCULAR HEMOGLOBIN 31.8 pg (28.0-32.0); MEAN CORPUSCULAR VOLUME 101.1 fL (81.0-99.0); MEAN PLATELET VOLUME 8.9 fl (7.4-10.4); MONOCYTES % 4.7 % (2.0-8.0); NEUTROPHILS % 59.9 % (40.0-76.0); PLATELET 200 x1000/uL (130-400); RED BLOOD CELL COUNT 2.33 mill/uL (4.2-5.4); RED CELL DISTRIBUTION WIDTH 20.6 % (11.6-14.6)
[2021-11-01 11:39] LABS: CHLORIDE 113 mEq/L (98-107)
[2021-11-01] MEDS ORDERED: POTASSIUM CHLORIDE 20MEQ/PACKET PO SCH (12:00)
[2021-11-01] MEDS: MIRTAZAPINE 15MG TABLET PO SCH (20:15)
[2021-11-01] MEDS: ACETAMINOPHEN 325MG TABLET PO PRN (23:19)
[2021-11-02] MEDS: IPRATROPIUM/ALBUTEROL 0.5-3(2.5)MG/3ML NEB HHN SCH ×6 (00:01→20:02)
[2021-11-02 04:00] VITALS: BP 125/65
[2021-11-02] MEDS: MORPHINE SULFATE 2 MG/ML CPJ (NOT FOR IM USE) IV PRN ×2 (04:23→16:45)
[2021-11-02] MEDS: INSULIN LISPRO (LOW DOSE) 100 UNITS/ML SUBCUT SCH ×3 (05:40→17:53)
[2021-11-02] MEDS: GUAIFENESIN 200MG/10ML SUGAR FREE UDC PO SCH ×3 (05:40→17:59)
[2021-11-02] MEDS: MIDODRINE HCL 5MG TABLET PO SCH ×3 (05:40→22:00)
[2021-11-02] MEDS: BLOOD SUGAR DIAGNOSTIC STRIP TEST SCH ×3 (05:40→17:53)
[2021-11-02] MEDS: MEROPENEM 1,000 MG in SODIUM CHLORIDE 0.9% 100 ML IV SCH ×3 (05:40→21:45)
[2021-11-02] MEDS: SUCRALFATE 1 G/10 ML UDC NG SCH ×3 (05:40→17:59)
[2021-11-02 06:01] LABS: CHLORIDE 117 mEq/L (98-107)
[2021-11-02] MEDS: ACETAMINOPHEN 325MG TABLET PO PRN (07:45)
[2021-11-02] MEDS: LEVOTHYROXINE SODIUM 25MCG TABLET PO SCH (07:45)
[2021-11-02] MEDS: HYDROCORTISONE 10MG TABLET PO SCH ×2 (07:45→18:00)
[2021-11-02 07:55] LABS: BASOPHILS % 0.6 % (0.0-2.0); EOSINOPHILS % 10.2 % (0.0-5.0); HEMATOCRIT. 26.5 % (36.0-48.0); HEMOGLOBIN. 8.3 g/dL (12.0-16.0); LYMPHOCYTES % 21.8 % (20.0-50.0); MEAN CORPUSCULAR HEMOGLOBIN 32.3 pg (28.0-32.0); MEAN CORPUSCULAR VOLUME 102.9 fL (81.0-99.0); MEAN PLATELET VOLUME 8.7 fl (7.4-10.4); MONOCYTES % 2.5 % (2.0-8.0); NEUTROPHILS % 64.9 % (40.0-76.0); PLATELET 166 x1000/uL (130-400); RED BLOOD CELL COUNT 2.58 mill/uL (4.2-5.4); RED CELL DISTRIBUTION WIDTH 20.4 % (11.6-14.6)
[2021-11-02 08:00] VITALS: BP 110/68
[2021-11-02] MEDS: CALCITRIOL 1MCG/ML AMP IV SCH (08:10)
[2021-11-02] MEDS: PANTOPRAZOLE SODIUM 40 MG/VIAL IV SCH ×2 (08:11→21:45)
[2021-11-02] MEDS: POTASSIUM-SODIUM PHOSPHATE POWDER PACKET PO SCH ×2 (08:11→16:45)
[2021-11-02] MEDS ORDERED: DEXT 5%/0.45% NACL 1000ML 1,000 ML IV SCH (11:30)
[2021-11-02 12:00] VITALS: BP 120/66
[2021-11-02] MEDS ORDERED: VANCOMYCIN 1250MG in DEXTROSE 5% WATER 250ML IV SCH (13:00)
[2021-11-02 16:00] VITALS: BP 115/69
[2021-11-02] MEDS: MIRTAZAPINE 15MG TABLET PO SCH (21:45)
[2021-11-03] MEDS: IPRATROPIUM/ALBUTEROL 0.5-3(2.5)MG/3ML NEB HHN SCH ×5 (00:17→15:30)
[2021-11-03] MEDS: GUAIFENESIN 200MG/10ML SUGAR FREE UDC PO SCH ×4 (01:38→18:12)
[2021-11-03] MEDS: SUCRALFATE 1 G/10 ML UDC NG SCH ×4 (01:38→18:12)
[2021-11-03] MEDS: MORPHINE SULFATE 2 MG/ML CPJ (NOT FOR IM USE) IV PRN ×2 (02:33→09:04)
[2021-11-03 05:34] LABS: BASOPHILS % 0.2 % (0.0-2.0); EOSINOPHILS % 5.4 % (0.0-5.0); HEMATOCRIT. 24.1 % (36.0-48.0); HEMOGLOBIN. 7.5 g/dL (12.0-16.0); LYMPHOCYTES % 24.7 % (20.0-50.0); MEAN CORPUSCULAR VOLUME 102.6 fL (81.0-99.0); MEAN PLATELET VOLUME 9.2 fl (7.4-10.4); MONOCYTES % 2.3 % (2.0-8.0); NEUTROPHILS % 67.4 % (40.0-76.0); PLATELET 137 x1000/uL (130-400); RED BLOOD CELL COUNT 2.34 mill/uL (4.2-5.4); RED CELL DISTRIBUTION WIDTH 19.6 % (11.6-14.6)
[2021-11-03] MEDS: MIDODRINE HCL 5MG TABLET PO SCH ×3 (06:00→22:00)
[2021-11-03] MEDS: INSULIN LISPRO (LOW DOSE) 100 UNITS/ML SUBCUT SCH ×4 (06:00→18:00)
[2021-11-03 06:05] LABS: CHLORIDE 114 mEq/L (98-107)
[2021-11-03] MEDS: MEROPENEM 1,000 MG in SODIUM CHLORIDE 0.9% 100 ML IV SCH ×3 (06:11→22:41)
[2021-11-03] MEDS: BLOOD SUGAR DIAGNOSTIC STRIP TEST SCH ×4 (06:12→18:12)
[2021-11-03 08:00] VITALS: BP 128/69
[2021-11-03] MEDS ORDERED: LEVOTHYROXINE SODIUM 50MCG TABLET PO NR (08:15)
[2021-11-03] MEDS: HYDROCORTISONE 10MG TABLET PO SCH ×2 (08:31→18:12)
[2021-11-03] MEDS: POTASSIUM-SODIUM PHOSPHATE POWDER PACKET PO SCH ×2 (08:31→18:11)
[2021-11-03] MEDS: PANTOPRAZOLE SODIUM 40 MG/VIAL IV SCH ×2 (08:31→20:34)
[2021-11-03] MEDS: CALCITRIOL 1MCG/ML AMP IV SCH (08:33)
[2021-11-03 12:00] VITALS: BP 128/72
[2021-11-03 20:00] VITALS: BP 157/91
[2021-11-03] MEDS: MIRTAZAPINE 15MG TABLET PO SCH (20:34)
[2021-11-03] MEDS ORDERED: VANCOMYCIN 1 G PREMIX 200 ML IV SCH (21:00)
[2021-11-04] VITALS (7 sets, daily range): BP systolic 109–139; BP diastolic 48–84
[2021-11-04] MEDS: GUAIFENESIN 200MG/10ML SUGAR FREE UDC PO SCH ×5 (00:25→23:32)
[2021-11-04] MEDS: SUCRALFATE 1 G/10 ML UDC NG SCH ×5 (00:25→23:32)
[2021-11-04] MEDS: BLOOD SUGAR DIAGNOSTIC STRIP TEST SCH ×5 (00:25→23:32)
[2021-11-04] MEDS: MIDODRINE HCL 5MG TABLET PO SCH ×3 (05:48→22:14)
[2021-11-04] MEDS: MEROPENEM 1,000 MG in SODIUM CHLORIDE 0.9% 100 ML IV SCH ×3 (05:57→23:43)
[2021-11-04] MEDS: INSULIN LISPRO (LOW DOSE) 100 UNITS/ML SUBCUT SCH ×5 (05:58→23:32)
[2021-11-04] MEDS: IPRATROPIUM/ALBUTEROL 0.5-3(2.5)MG/3ML NEB HHN SCH ×4 (08:49→20:39)
[2021-11-04] MEDS: POTASSIUM-SODIUM PHOSPHATE POWDER PACKET PO SCH ×2 (09:21→17:31)
[2021-11-04] MEDS: PANTOPRAZOLE SODIUM 40 MG/VIAL IV SCH ×2 (09:21→21:00)
[2021-11-04] MEDS: HYDROCORTISONE 10MG TABLET PO SCH ×2 (09:21→17:30)
[2021-11-04] MEDS: ACETAMINOPHEN 325MG TABLET PO PRN ×2 (09:22→22:10)
[2021-11-04] MEDS: CALCITRIOL 1MCG/ML AMP IV SCH (09:41)
[2021-11-04 14:37] LABS: BG BASE EXCESS 3.8 mmol/L (-2.0-2.0); BG CARBOXYHEMOGLOBIN 0.6 % (0.5-1.5); BG DEOXYHEMOGLOBIN 3.3 % (0.0-5.0); BG FRACTION INSPIRED OXYGEN 32; BG HCO3 ACT 26.9 mmol/L (22.0-26.0); BG METHEMOGLOBIN 0.7 % (0.0-1.5); BG OXYGEN SATURATION 96.7 % (92.0-98.5); BG OXYHEMOGLOBIN 95.4 % (94.0-97.0); BG PCO2 34.7 mmHg (35.0-45.0); BG PH 7.508 (7.350-7.450); BG PO2 94.9 mmHg (75.0-100.0); BG SAMPLE SITE RIGHT BRACHIAL; BG TOTAL HEMOGLOBIN 8.3 g/dL (12.0-18.0); BG VENT MODE NASAL CANNULA
[2021-11-04 16:31] LABS: BASOPHILS % 0.9 % (0.0-2.0); EOSINOPHILS % 2.5 % (0.0-5.0); HEMATOCRIT. 22.1 % (36.0-48.0); LYMPHOCYTES % 30.4 % (20.0-50.0); MEAN CORPUSCULAR HEMOGLOBIN 30.4 pg (28.0-32.0); MEAN CORPUSCULAR VOLUME 98.3 fL (81.0-99.0); MEAN PLATELET VOLUME 9.6 fl (7.4-10.4); MONOCYTES % 2.4 % (2.0-8.0); NEUTROPHILS % 63.8 % (40.0-76.0); PLATELET 117 x1000/uL (130-400); RED BLOOD CELL COUNT 2.25 mill/uL (4.2-5.4); RED CELL DISTRIBUTION WIDTH 19.5 % (11.6-14.6)
[2021-11-04 16:50] LABS: HEMOGLOBIN. 6.8 g/dL (12.0-16.0)
[2021-11-04] MEDS: MIRTAZAPINE 15MG TABLET PO SCH (21:09)
[2021-11-05] VITALS (9 sets, daily range): BP systolic 99–126; BP diastolic 50–76
[2021-11-05] MEDS: IPRATROPIUM/ALBUTEROL 0.5-3(2.5)MG/3ML NEB HHN SCH ×6 (00:36→19:55)
[2021-11-05] MEDS: GUAIFENESIN 200MG/10ML SUGAR FREE UDC PO SCH ×4 (05:41→23:14)
[2021-11-05] MEDS: SUCRALFATE 1 G/10 ML UDC NG SCH ×4 (05:41→22:53)
[2021-11-05] MEDS: MEROPENEM 1,000 MG in SODIUM CHLORIDE 0.9% 100 ML IV SCH ×3 (05:41→22:52)
[2021-11-05] MEDS: MIDODRINE HCL 5MG TABLET PO SCH ×3 (05:42→22:00)
[2021-11-05] MEDS: INSULIN LISPRO (LOW DOSE) 100 UNITS/ML SUBCUT SCH ×3 (06:00→18:00)
[2021-11-05] MEDS: BLOOD SUGAR DIAGNOSTIC STRIP TEST SCH ×4 (06:00→22:55)
[2021-11-05 07:19] LABS: CHLORIDE 118 mEq/L (98-107)
[2021-11-05] MEDS ORDERED: LIDOCAINE HCL 1% 20ML VIAL (Pyxis) INJ ONE (08:29)
[2021-11-05] MEDS: PANTOPRAZOLE SODIUM 40 MG/VIAL IV SCH ×2 (08:31→22:53)
[2021-11-05] MEDS: POTASSIUM-SODIUM PHOSPHATE POWDER PACKET PO SCH ×2 (08:31→18:03)
[2021-11-05] MEDS: CALCITRIOL 1MCG/ML AMP IV SCH (08:31)
[2021-11-05] MEDS: HYDROCORTISONE 10MG TABLET PO SCH ×2 (08:32→18:02)
[2021-11-05] MEDS: ACETAMINOPHEN 325MG TABLET PO PRN ×3 (12:02→22:54)
[2021-11-05 20:53] LABS: BASOPHILS % 0.6 % (0.0-2.0); EOSINOPHILS % 0.9 % (0.0-5.0); HEMOGLOBIN. 8.2 g/dL (12.0-16.0); LYMPHOCYTES % 32.5 % (20.0-50.0); MEAN CORPUSCULAR HEMOGLOBIN 30.5 pg (28.0-32.0); MEAN CORPUSCULAR VOLUME 92.9 fL (81.0-99.0); MEAN PLATELET VOLUME 9.3 fl (7.4-10.4); MONOCYTES % 2.6 % (2.0-8.0); NEUTROPHILS % 63.4 % (40.0-76.0); PLATELET 101 x1000/uL (130-400); RED BLOOD CELL COUNT 2.69 mill/uL (4.2-5.4); RED CELL DISTRIBUTION WIDTH 18.2 % (11.6-14.6)
[2021-11-05] MEDS: MIRTAZAPINE 15MG TABLET PO SCH (22:54)
[2021-11-06] VITALS (7 sets, daily range): BP systolic 111–125; BP diastolic 56–62
[2021-11-06] MEDS: IPRATROPIUM/ALBUTEROL 0.5-3(2.5)MG/3ML NEB HHN SCH ×6 (00:14→20:17)
[2021-11-06] MEDS: MIDODRINE HCL 5MG TABLET PO SCH ×3 (05:04→21:13)
[2021-11-06] MEDS: BLOOD SUGAR DIAGNOSTIC STRIP TEST SCH ×3 (05:22→17:47)
[2021-11-06] MEDS: GUAIFENESIN 200MG/10ML SUGAR FREE UDC PO SCH ×3 (05:22→17:54)
[2021-11-06] MEDS: SUCRALFATE 1 G/10 ML UDC NG SCH ×3 (05:22→17:54)
[2021-11-06] MEDS: MEROPENEM 1,000 MG in SODIUM CHLORIDE 0.9% 100 ML IV SCH ×3 (05:22→21:13)
[2021-11-06] MEDS: INSULIN LISPRO (LOW DOSE) 100 UNITS/ML SUBCUT SCH ×4 (06:00→17:47)
[2021-11-06 06:21] LABS: BASOPHILS % 0.5 % (0.0-2.0); EOSINOPHILS % 3.1 % (0.0-5.0); HEMATOCRIT. 26.3 % (36.0-48.0); HEMOGLOBIN. 8.8 g/dL (12.0-16.0); LYMPHOCYTES % 34.9 % (20.0-50.0); MEAN CORPUSCULAR HEMOGLOBIN 30.9 pg (28.0-32.0); MEAN CORPUSCULAR VOLUME 92.9 fL (81.0-99.0); MEAN PLATELET VOLUME 9.9 fl (7.4-10.4); MONOCYTES % 1.9 % (2.0-8.0); NEUTROPHILS % 59.6 % (40.0-76.0); PLATELET 102 x1000/uL (130-400); RED BLOOD CELL COUNT 2.84 mill/uL (4.2-5.4); RED CELL DISTRIBUTION WIDTH 18.2 % (11.6-14.6)
[2021-11-06 06:33] LABS: CHLORIDE 118 mEq/L (98-107)
[2021-11-06 06:42] LABS: T4 FREE 0.66 ng/dL (0.76-1.46)
[2021-11-06] MEDS ORDERED: DEXT 5% WATER + KCL 40MEQ/L 1,000 ML IV SCH (09:00)
[2021-11-06] MEDS ORDERED: POTASSIUM CHLORIDE 20MEQ/PACKET NG SCH ×2 (09:00)
[2021-11-06] MEDS: PANTOPRAZOLE SODIUM 40 MG/VIAL IV SCH ×2 (09:10→21:13)
[2021-11-06] MEDS: POTASSIUM-SODIUM PHOSPHATE POWDER PACKET PO SCH ×2 (09:10→17:54)
[2021-11-06] MEDS: HYDROCORTISONE 10MG TABLET PO SCH ×2 (09:12→17:55)
[2021-11-06] MEDS: CALCITRIOL 1MCG/ML AMP IV SCH (09:12)
[2021-11-06] MEDS: LEVOTHYROXINE SODIUM 100MCG TABLET PO SCH (09:12)
[2021-11-06] MEDS ORDERED: DEXTROSE 5% WATER 1,000 ML IV SCH (09:15)
[2021-11-06] MEDS ORDERED: POTASSIUM CHLORIDE 20MEQ/PACKET PO ONE (09:15)
[2021-11-06] MEDS: DEXT 5% WATER + KCL 20MEQ/L 1,000 ML IV SCH ×2 (12:39→21:14)
[2021-11-06] MEDS: MIRTAZAPINE 15MG TABLET PO SCH (21:13)
[2021-11-06] MEDS: CALCIUM 1250MG TABLET (500MG ELEMENTAL CALCIUM) PO SCH (21:13)
[2021-11-07] VITALS (21 sets, daily range): BP systolic 97–125; BP diastolic 46–70
[2021-11-07] MEDS: GUAIFENESIN 200MG/10ML SUGAR FREE UDC PO SCH ×4 (00:08→18:48)
[2021-11-07] MEDS: SUCRALFATE 1 G/10 ML UDC NG SCH ×4 (00:08→18:48)
[2021-11-07] MEDS: BLOOD SUGAR DIAGNOSTIC STRIP TEST SCH ×4 (00:08→18:00)
[2021-11-07] MEDS: IPRATROPIUM/ALBUTEROL 0.5-3(2.5)MG/3ML NEB HHN SCH ×3 (00:28→13:17)
[2021-11-07] MEDS: INSULIN LISPRO (LOW DOSE) 100 UNITS/ML SUBCUT SCH ×4 (05:28→18:00)
[2021-11-07] MEDS: MIDODRINE HCL 5MG TABLET PO SCH ×3 (05:36→22:20)
[2021-11-07] MEDS: MEROPENEM 1,000 MG in SODIUM CHLORIDE 0.9% 100 ML IV SCH ×3 (05:36→22:20)
[2021-11-07] MEDS: LEVOTHYROXINE SODIUM 100MCG TABLET PO SCH (06:30)
[2021-11-07] MEDS: PANTOPRAZOLE SODIUM 40 MG/VIAL IV SCH ×2 (09:16→22:20)
[2021-11-07] MEDS: CALCITRIOL 1MCG/ML AMP IV SCH (09:17)
[2021-11-07] MEDS: POTASSIUM-SODIUM PHOSPHATE POWDER PACKET PO SCH ×2 (09:18→17:50)
[2021-11-07] MEDS: MORPHINE SULFATE 2 MG/ML CPJ (NOT FOR IM USE) IV PRN (09:18)
[2021-11-07] MEDS: HYDROCORTISONE 10MG TABLET PO SCH ×2 (09:34→17:50)
[2021-11-07 10:14] LABS: MEAN CORPUSCULAR HEMOGLOBIN 29.3 pg (28.0-32.0); MEAN CORPUSCULAR VOLUME 93.3 fL (81.0-99.0); MEAN PLATELET VOLUME 9.7 fl (7.4-10.4); PLATELET 93 x1000/uL (130-400); RED BLOOD CELL COUNT 2.14 mill/uL (4.2-5.4); RED CELL DISTRIBUTION WIDTH 18.3 % (11.6-14.6)
[2021-11-07 10:17] LABS: CHLORIDE 116 mEq/L (98-107)
[2021-11-07 10:57] LABS: HEMOGLOBIN. 6.3 g/dL (12.0-16.0)
[2021-11-07 13:44] LABS: NUCLEATED RED BLOOD CELLS 2 /100 WBC; PLATELET ESTIMATE DECREASED
[2021-11-07 18:44] LABS: INR 1.5; PROTHROMBIN TIME 15.2 sec (9.6-11.0)
[2021-11-07] MEDS ORDERED: NALOXONE HCL 0.4MG/ML VIAL IV PRN (21:00)
[2021-11-07 21:34] LABS: BG BASE EXCESS 2.3 mmol/L (-2.0-2.0); BG CARBOXYHEMOGLOBIN 1.1 % (0.5-1.5); BG DEOXYHEMOGLOBIN 4.3 % (0.0-5.0); BG FRACTION INSPIRED OXYGEN 28; BG HCO3 ACT 26.3 mmol/L (22.0-26.0); BG METHEMOGLOBIN 0.2 % (0.0-1.5); BG OXYGEN SATURATION 95.6 % (92.0-98.5); BG OXYHEMOGLOBIN 94.4 % (94.0-97.0); BG PCO2 37.9 mmHg (35.0-45.0); BG PH 7.459 (7.350-7.450); BG PO2 83.2 mmHg (75.0-100.0); BG SAMPLE SITE LEFT RADIAL; BG TOTAL HEMOGLOBIN 8.3 g/dL (12.0-18.0); BG VENT MODE NASAL CANNULA
[2021-11-07] MEDS: MIRTAZAPINE 15MG TABLET PO SCH (22:21)
[2021-11-08] VITALS (94 sets, daily range): BP systolic 57–164; BP diastolic 32–151
[2021-11-08] MEDS: IPRATROPIUM/ALBUTEROL 0.5-3(2.5)MG/3ML NEB HHN SCH ×8 (00:33→21:26)
[2021-11-08] MEDS: GUAIFENESIN 200MG/10ML SUGAR FREE UDC PO SCH ×4 (01:43→18:05)
[2021-11-08] MEDS: SUCRALFATE 1 G/10 ML UDC NG SCH ×4 (01:44→18:05)
[2021-11-08 05:21] LABS: HEMATOCRIT. 32.7 % (36.0-48.0); HEMOGLOBIN. 10.9 g/dL (12.0-16.0); MEAN CORPUSCULAR HEMOGLOBIN 29.9 pg (28.0-32.0); MEAN CORPUSCULAR VOLUME 89.5 fL (81.0-99.0); MEAN PLATELET VOLUME 10.1 fl (7.4-10.4); PLATELET 86 x1000/uL (130-400); RED BLOOD CELL COUNT 3.65 mill/uL (4.2-5.4); RED CELL DISTRIBUTION WIDTH 15.9 % (11.6-14.6)
[2021-11-08 05:30] LABS: CHLORIDE 120 mEq/L (98-107)
[2021-11-08] MEDS: INSULIN LISPRO (LOW DOSE) 100 UNITS/ML SUBCUT SCH ×4 (06:00→18:00)
[2021-11-08] MEDS: BLOOD SUGAR DIAGNOSTIC STRIP TEST SCH ×4 (06:00→18:21)
[2021-11-08] MEDS: MIDODRINE HCL 5MG TABLET PO SCH ×3 (06:00→23:15)
[2021-11-08] MEDS ORDERED: IOHEXOL-300 100 ML BOTTLE ONE (06:21)
[2021-11-08] MEDS: HYDROCORTISONE 10MG TABLET PO SCH (07:00)
[2021-11-08] MEDS ORDERED: DEXTROSE 50% WATER 50ML SYRINGE IV ONE (07:21)
[2021-11-08] MEDS: LEVOTHYROXINE SODIUM 100MCG TABLET PO SCH (07:39)
[2021-11-08] MEDS: MEROPENEM 1,000 MG in SODIUM CHLORIDE 0.9% 100 ML IV SCH ×3 (07:39→23:15)
[2021-11-08] MEDS: DEXTROSE 50% WATER 50ML SYRINGE IV PRN (07:40)
[2021-11-08] MEDS: POTASSIUM-SODIUM PHOSPHATE POWDER PACKET PO SCH ×2 (09:00→17:00)
[2021-11-08] MEDS: CALCITRIOL 1MCG/ML AMP IV SCH (09:00)
[2021-11-08] MEDS: PANTOPRAZOLE SODIUM 40 MG/VIAL IV SCH ×2 (09:00→23:15)
[2021-11-08] MEDS: DEXTROSE 5% WATER 1,000 ML IV SCH ×2 (09:30→23:15)
[2021-11-08] MEDS ORDERED: SODIUM CHLORIDE 0.9% 1,000 ML IV SCH (10:15)
[2021-11-08] MEDS ORDERED: SODIUM CHLORIDE 0.9% 250 ML IV ONE (11:15)
[2021-11-08 13:18] LABS: ATYPICAL LYMPHOCYTES 2; PLATELET ESTIMATE DECREASED
[2021-11-08 13:39] LABS: HEMATOCRIT 30.2 % (36.0-48.0)
[2021-11-08] MEDS: LEVOTHYROXINE SODIUM 100 MCG/ VIAL IV SCH (15:06)
[2021-11-08] MEDS: HYDROCORTISONE SOD SUCCINATE 100 MG/2 ML VIAL IV SCH (18:05)
[2021-11-08] MEDS ORDERED: DIATR MEGLU/DIATRIZOATE SOLN 30ML PO NR (18:15)
[2021-11-08] MEDS ORDERED: PHYTONADIONE 10MG/ML AMP SUBCUT NR (19:15)
[2021-11-08] MEDS: NOREPINEPHRINE 8 MG in DEXT 5% WATER 242 ML IV PRN (21:48)
[2021-11-08 23:12] LABS: CHLORIDE 116 mEq/L (98-107)
[2021-11-08] MEDS: MIRTAZAPINE 15MG TABLET PO SCH (23:15)
[2021-11-09] VITALS (101 sets, daily range): BP systolic 86–135; BP diastolic 37–94
[2021-11-09] MEDS: SUCRALFATE 1 G/10 ML UDC NG SCH ×4 (01:41→17:22)
[2021-11-09] MEDS: GUAIFENESIN 200MG/10ML SUGAR FREE UDC PO SCH ×2 (01:41→06:00)
[2021-11-09] MEDS: IPRATROPIUM/ALBUTEROL 0.5-3(2.5)MG/3ML NEB HHN SCH ×4 (01:59→16:35)
[2021-11-09] MEDS: INSULIN LISPRO (LOW DOSE) 100 UNITS/ML SUBCUT SCH ×4 (06:00→17:23)
[2021-11-09 06:11] LABS: CHLORIDE 119 mEq/L (98-107)
[2021-11-09] MEDS: BLOOD SUGAR DIAGNOSTIC STRIP TEST SCH ×4 (06:11→17:04)
[2021-11-09 06:12] LABS: INR 1.2
[2021-11-09] MEDS: MIDODRINE HCL 5MG TABLET PO SCH ×3 (06:51→21:06)
[2021-11-09] MEDS: HYDROCORTISONE SOD SUCCINATE 100 MG/2 ML VIAL IV SCH ×2 (06:51→17:29)
[2021-11-09] MEDS: MEROPENEM 1,000 MG in SODIUM CHLORIDE 0.9% 100 ML IV SCH ×3 (06:52→22:35)
[2021-11-09] MEDS: POTASSIUM-SODIUM PHOSPHATE POWDER PACKET PO SCH ×2 (09:00→16:11)
[2021-11-09] MEDS ORDERED: POTASSIUM CHLORIDE INJ 40 MEQ in DEXT 5% WATER 250 ML IV ONE (09:00)
[2021-11-09] MEDS: LEVOTHYROXINE SODIUM 100 MCG/ VIAL IV SCH (09:07)
[2021-11-09] MEDS: METOCLOPRAMIDE HCL 10MG/2ML VIAL IV SCH ×3 (09:08→17:30)
[2021-11-09] MEDS: PHYTONADIONE 10MG/ML AMP SUBCUT SCH (09:11)
[2021-11-09] MEDS: CALCITRIOL 1MCG/ML AMP IV SCH (09:11)
[2021-11-09] MEDS: PANTOPRAZOLE SODIUM 40 MG/VIAL IV SCH ×2 (09:11→21:05)
[2021-11-09] MEDS ORDERED: ACETAMINOPHEN 650MG SUPP PR PRN (10:15)
[2021-11-09] MEDS: NOREPINEPHRINE 8 MG in DEXT 5% WATER 242 ML IV PRN (10:25)
[2021-11-09] MEDS: DEXTROSE 5% WATER 1,000 ML IV SCH (12:18)
[2021-11-09] MEDS: MORPHINE SULFATE 2 MG/ML CPJ (NOT FOR IM USE) IV PRN ×2 (16:28→21:36)
[2021-11-09] MEDS: DEXTROSE 50% WATER 50ML SYRINGE IV PRN (17:30)
[2021-11-09 20:33] LABS: HEMOGLOBIN. 9.8 g/dL (12.0-16.0); MEAN CORPUSCULAR HEMOGLOBIN 28.9 pg (28.0-32.0); MEAN CORPUSCULAR VOLUME 88.8 fL (81.0-99.0); MEAN PLATELET VOLUME 9.3 fl (7.4-10.4); PLATELET 83 x1000/uL (130-400); RED BLOOD CELL COUNT 3.38 mill/uL (4.2-5.4); RED CELL DISTRIBUTION WIDTH 16.1 % (11.6-14.6)
[2021-11-09 20:39] LABS: INR 1.3; PROTHROMBIN TIME 13.5 sec (9.6-11.0)
[2021-11-09] MEDS: MIRTAZAPINE 15MG TABLET PO SCH (21:06)
[2021-11-09 21:20] LABS: BG BASE EXCESS -1.9 mmol/L (-2.0-2.0); BG CARBOXYHEMOGLOBIN 0.5 % (0.5-1.5); BG DEOXYHEMOGLOBIN 5.8 % (0.0-5.0); BG FRACTION INSPIRED OXYGEN 28; BG HCO3 ACT 21.3 mmol/L (22.0-26.0); BG METHEMOGLOBIN 0.4 % (0.0-1.5); BG OXYGEN SATURATION 94.1 % (92.0-98.5); BG OXYHEMOGLOBIN 93.3 % (94.0-97.0); BG PCO2 31.1 mmHg (35.0-45.0); BG PH 7.454 (7.350-7.450); BG PO2 65.4 mmHg (75.0-100.0); BG SAMPLE SITE RIGHT BRACHIAL; BG TOTAL HEMOGLOBIN 10.8 g/dL (12.0-18.0); BG VENT MODE NASAL CANNULA
[2021-11-09 21:31] LABS: CHLORIDE 119 mEq/L (98-107)
[2021-11-10] VITALS (92 sets, daily range): BP systolic 68–155; BP diastolic 25–141
[2021-11-10] MEDS: BLOOD SUGAR DIAGNOSTIC STRIP TEST SCH ×4 (00:22→18:17)
[2021-11-10] MEDS: METOCLOPRAMIDE HCL 10MG/2ML VIAL IV SCH ×4 (00:50→18:17)
[2021-11-10] MEDS: DEXTROSE 5% WATER 1,000 ML IV SCH (00:51)
[2021-11-10] MEDS: SUCRALFATE 1 G/10 ML UDC NG SCH ×4 (00:51→18:00)
[2021-11-10 01:44] LABS: NUCLEATED RED BLOOD CELLS 4 /100 WBC
[2021-11-10 01:45] LABS: PLATELET ESTIMATE DECREASED
[2021-11-10 02:15] LABS: HEMATOCRIT 29.4 % (36.0-48.0); HEMOGLOBIN 9.6 g/dL (12.0-16.0); MEAN CORPUSCULAR HEMOGLOBIN 29.9 pg (28.0-32.0); MEAN CORPUSCULAR VOLUME 91.2 fL (81.0-99.0); PLATELET 82 x1000/uL (130-400); RED BLOOD CELL COUNT 3.22 mill/uL (4.2-5.4); RED CELL DISTRIBUTION WIDTH 16.7 % (11.6-14.6)
[2021-11-10 02:19] LABS: CHLORIDE 118 mEq/L (98-107)
[2021-11-10 02:38] LABS: INR 1.2; PARTIAL THROMBOPLASTIN TIME 43.4 sec (23.4-31.0); PROTHROMBIN TIME 13.2 sec (9.6-11.0)
[2021-11-10 03:03] LABS: CHLORIDE 117 mEq/L (98-107)
[2021-11-10 05:07] LABS: BG BASE EXCESS -0.1 mmol/L (-2.0-2.0); BG CARBOXYHEMOGLOBIN 0.9 % (0.5-1.5); BG DEOXYHEMOGLOBIN 13.6 % (0.0-5.0); BG FRACTION INSPIRED OXYGEN 36; BG HCO3 ACT 26.7 mmol/L (22.0-26.0); BG METHEMOGLOBIN 0.9 % (0.0-1.5); BG OXYGEN SATURATION 86.2 % (92.0-98.5); BG OXYHEMOGLOBIN 84.6 % (94.0-97.0); BG PCO2 54.7 mmHg (35.0-45.0); BG PH 7.306 (7.350-7.450); BG PO2 52.2 mmHg (75.0-100.0); BG SAMPLE SITE RIGHT BRACHIAL; BG TOTAL HEMOGLOBIN 9.4 g/dL (12.0-18.0); BG VENT MODE NASAL CANNULA
[2021-11-10 05:23] LABS: BG BASE EXCESS -0.8 mmol/L (-2.0-2.0); BG CARBOXYHEMOGLOBIN 0.4 % (0.5-1.5); BG DEOXYHEMOGLOBIN 2.9 % (0.0-5.0); BG FRACTION INSPIRED OXYGEN 36; BG HCO3 ACT 24.7 mmol/L (22.0-26.0); BG METHEMOGLOBIN 0.4 % (0.0-1.5); BG OXYGEN SATURATION 97.1 % (92.0-98.5); BG OXYHEMOGLOBIN 96.3 % (94.0-97.0); BG PCO2 44.9 mmHg (35.0-45.0); BG PH 7.359 (7.350-7.450); BG PO2 92.3 mmHg (75.0-100.0); BG SAMPLE SITE LEFT RADIAL; BG TOTAL HEMOGLOBIN 9.7 g/dL (12.0-18.0); BG VENT MODE NASAL CANNULA
[2021-11-10] MEDS: IPRATROPIUM/ALBUTEROL 0.5-3(2.5)MG/3ML NEB HHN SCH ×3 (05:23→11:33)
[2021-11-10] MEDS: INSULIN LISPRO (LOW DOSE) 100 UNITS/ML SUBCUT SCH ×4 (05:35→18:00)
[2021-11-10] MEDS: HYDROCORTISONE SOD SUCCINATE 100 MG/2 ML VIAL IV SCH ×2 (05:45→18:17)
[2021-11-10] MEDS: MIDODRINE HCL 5MG TABLET PO SCH ×3 (05:46→20:58)
[2021-11-10] MEDS: MEROPENEM 1,000 MG in SODIUM CHLORIDE 0.9% 100 ML IV SCH ×3 (05:47→20:58)
[2021-11-10] MEDS: PANTOPRAZOLE SODIUM 40 MG/VIAL IV SCH ×2 (08:12→20:58)
[2021-11-10] MEDS: CALCITRIOL 1MCG/ML AMP IV SCH (08:12)
[2021-11-10] MEDS: POTASSIUM-SODIUM PHOSPHATE POWDER PACKET PO SCH ×2 (08:13→16:41)
[2021-11-10] MEDS: PHYTONADIONE 10MG/ML AMP SUBCUT SCH (08:13)
[2021-11-10 09:31] LABS: HEMATOCRIT 29.1 % (36.0-48.0); HEMOGLOBIN 9.7 g/dL (12.0-16.0); MEAN CORPUSCULAR VOLUME 89.9 fL (81.0-99.0); PLATELET 86 x1000/uL (130-400); RED BLOOD CELL COUNT 3.23 mill/uL (4.2-5.4); RED CELL DISTRIBUTION WIDTH 16.2 % (11.6-14.6)
[2021-11-10] MEDS: NOREPINEPHRINE 8 MG in DEXT 5% WATER 242 ML IV PRN ×2 (09:52→21:12)
[2021-11-10] MEDS ORDERED: FUROSEMIDE 40MG/4ML VIAL IVP SCH (10:00)
[2021-11-10] MEDS: LEVOTHYROXINE SODIUM 100 MCG/ VIAL IV SCH (10:04)
[2021-11-10] MEDS ORDERED: NOREPINEPHRINE 32 MG in DEXT 5% WATER 218 ML IV PRN (12:00)
[2021-11-10 17:31] LABS: HEMATOCRIT 26.9 % (36.0-48.0); HEMOGLOBIN 9.1 g/dL (12.0-16.0)
[2021-11-10 20:08] LABS: HEMATOCRIT 25.9 % (36.0-48.0); HEMOGLOBIN 8.7 g/dL (12.0-16.0)
[2021-11-10] MEDS: MIRTAZAPINE 15MG TABLET PO SCH (20:58)
[2021-11-11] VITALS (59 sets, daily range): BP systolic 91–156; BP diastolic 49–131
[2021-11-11] MEDS: BLOOD SUGAR DIAGNOSTIC STRIP TEST SCH ×4 (00:44→18:38)
[2021-11-11] MEDS: METOCLOPRAMIDE HCL 10MG/2ML VIAL IV SCH ×4 (00:45→17:29)
[2021-11-11 03:04] LABS: BASOPHILS % 0.4 % (0.0-2.0); HEMATOCRIT. 25.2 % (36.0-48.0); HEMOGLOBIN. 8.3 g/dL (12.0-16.0); LYMPHOCYTES % 48.6 % (20.0-50.0); MEAN CORPUSCULAR HEMOGLOBIN 29.8 pg (28.0-32.0); MEAN CORPUSCULAR VOLUME 90.4 fL (81.0-99.0); MEAN PLATELET VOLUME 9.6 fl (7.4-10.4); MONOCYTES % 2.4 % (2.0-8.0); NEUTROPHILS % 48.6 % (40.0-76.0); PLATELET 69 x1000/uL (130-400); RED BLOOD CELL COUNT 2.78 mill/uL (4.2-5.4); RED CELL DISTRIBUTION WIDTH 16.4 % (11.6-14.6)
[2021-11-11 03:12] LABS: INR 1.2; PARTIAL THROMBOPLASTIN TIME 39.3 sec (23.4-31.0); PROTHROMBIN TIME 12.8 sec (9.6-11.0)
[2021-11-11 03:16] LABS: CHLORIDE 115 mEq/L (98-107)
[2021-11-11] MEDS: MIDODRINE HCL 5MG TABLET PO SCH ×3 (05:34→20:42)
[2021-11-11] MEDS: HYDROCORTISONE SOD SUCCINATE 100 MG/2 ML VIAL IV SCH ×2 (05:34→17:29)
[2021-11-11] MEDS: SUCRALFATE 1 G/10 ML UDC NG SCH ×4 (05:34→17:29)
[2021-11-11] MEDS: MEROPENEM 1,000 MG in SODIUM CHLORIDE 0.9% 100 ML IV SCH ×3 (05:34→20:43)
[2021-11-11] MEDS: INSULIN LISPRO (LOW DOSE) 100 UNITS/ML SUBCUT SCH ×4 (05:49→18:00)
[2021-11-11] MEDS ORDERED: POTASSIUM CHLORIDE INJ 40 MEQ in DEXT 5% WATER 250 ML IV ONE (08:15)
[2021-11-11 08:27] LABS: HEMATOCRIT 29.9 % (36.0-48.0); HEMOGLOBIN 9.9 g/dL (12.0-16.0); MEAN CORPUSCULAR HEMOGLOBIN 28.7 pg (28.0-32.0); MEAN CORPUSCULAR VOLUME 86.3 fL (81.0-99.0); PLATELET 67 x1000/uL (130-400); RED BLOOD CELL COUNT 3.47 mill/uL (4.2-5.4); RED CELL DISTRIBUTION WIDTH 17.4 % (11.6-14.6)
[2021-11-11] MEDS: CALCITRIOL 1MCG/ML AMP IV SCH (09:00)
[2021-11-11] MEDS: POTASSIUM-SODIUM PHOSPHATE POWDER PACKET PO SCH ×2 (09:00→17:29)
[2021-11-11] MEDS ORDERED: MAGNESIUM 4 G PREMIX 100 ML IV NR (09:00)
[2021-11-11 09:07] LABS: BG BASE EXCESS 0.4 mmol/L (-2.0-2.0); BG CARBOXYHEMOGLOBIN 0.3 % (0.5-1.5); BG DEOXYHEMOGLOBIN 0.7 % (0.0-5.0); BG FRACTION INSPIRED OXYGEN 100; BG METHEMOGLOBIN 0.5 % (0.0-1.5); BG OXYGEN SATURATION 99.3 % (92.0-98.5); BG OXYHEMOGLOBIN 98.5 % (94.0-97.0); BG PCO2 46.4 mmHg (35.0-45.0); BG PH 7.367 (7.350-7.450); BG PO2 374.1 mmHg (75.0-100.0); BG SAMPLE SITE LEFT RADIAL; BG TOTAL HEMOGLOBIN 10.6 g/dL (12.0-18.0); BG TOTAL RESPIRATORY RATE 18 b/min; BG VENT MODE MASK - BIPAP
[2021-11-11] MEDS: LEVOTHYROXINE SODIUM 100 MCG/ VIAL IV SCH (10:32)
[2021-11-11] MEDS: FUROSEMIDE 40MG/4ML VIAL IVP SCH (10:33)
[2021-11-11] MEDS: PANTOPRAZOLE SODIUM 40 MG/VIAL IV SCH ×2 (10:33→20:43)
[2021-11-11] MEDS: PHYTONADIONE 10MG/ML AMP SUBCUT SCH (10:34)
[2021-11-11] MEDS: KCL 20MEQ/100ML PREMIX 100 ML IV SCH ×2 (10:52→16:38)
[2021-11-11] MEDS: SPIRONOLACTONE 25MG TABLET PO SCH (16:36)
[2021-11-11] MEDS: MIRTAZAPINE 15MG TABLET PO SCH (20:42)
[2021-11-12] VITALS (40 sets, daily range): BP systolic 108–148; BP diastolic 57–82
[2021-11-12] MEDS: SUCRALFATE 1 G/10 ML UDC NG SCH ×4 (00:28→19:19)
[2021-11-12] MEDS: BLOOD SUGAR DIAGNOSTIC STRIP TEST SCH ×4 (00:28→18:00)
[2021-11-12] MEDS: METOCLOPRAMIDE HCL 10MG/2ML VIAL IV SCH ×5 (00:30→23:42)
[2021-11-12 05:54] LABS: CHLORIDE 116 mEq/L (98-107)
[2021-11-12] MEDS: INSULIN LISPRO (LOW DOSE) 100 UNITS/ML SUBCUT SCH ×4 (06:00→18:00)
[2021-11-12 06:04] LABS: HEMATOCRIT. 29.9 % (36.0-48.0); HEMOGLOBIN. 9.9 g/dL (12.0-16.0); MEAN CORPUSCULAR HEMOGLOBIN 28.4 pg (28.0-32.0); MEAN CORPUSCULAR VOLUME 85.6 fL (81.0-99.0); MEAN PLATELET VOLUME 10.1 fl (7.4-10.4); PLATELET 64 x1000/uL (130-400); RED CELL DISTRIBUTION WIDTH 16.9 % (11.6-14.6)
[2021-11-12] MEDS: HYDROCORTISONE SOD SUCCINATE 100 MG/2 ML VIAL IV SCH ×2 (07:01→19:19)
[2021-11-12] MEDS: MEROPENEM 1,000 MG in SODIUM CHLORIDE 0.9% 100 ML IV SCH ×3 (07:19→21:33)
[2021-11-12] MEDS ORDERED: POTASSIUM CHLORIDE INJ 40 MEQ in DEXT 5% WATER 500 ML IV ONE (09:00)
[2021-11-12 09:12] LABS: PHOSPHORUS 2.9 mg/dL (2.5-4.9)
[2021-11-12] MEDS: LEVOTHYROXINE SODIUM 100 MCG/ VIAL IV SCH (09:16)
[2021-11-12] MEDS: PANTOPRAZOLE SODIUM 40 MG/VIAL IV SCH ×2 (09:17→21:33)
[2021-11-12] MEDS: SPIRONOLACTONE 25MG TABLET PO SCH (09:17)
[2021-11-12] MEDS: FUROSEMIDE 40MG/4ML VIAL IVP SCH (09:17)
[2021-11-12] MEDS: POTASSIUM-SODIUM PHOSPHATE POWDER PACKET PO SCH ×2 (09:17→19:19)
[2021-11-12 11:10] LABS: BG CARBOXYHEMOGLOBIN 1.3 % (0.5-1.5); BG DEOXYHEMOGLOBIN 4.2 % (0.0-5.0); BG FRACTION INSPIRED OXYGEN 28; BG HCO3 ACT 24.7 mmol/L (22.0-26.0); BG METHEMOGLOBIN 0.3 % (0.0-1.5); BG OXYGEN SATURATION 95.7 % (92.0-98.5); BG OXYHEMOGLOBIN 94.2 % (94.0-97.0); BG PCO2 32.5 mmHg (35.0-45.0); BG PH 7.499 (7.350-7.450); BG PO2 85.4 mmHg (75.0-100.0); BG TOTAL HEMOGLOBIN 11.8 g/dL (12.0-18.0); BG VENT MODE NASAL CANNULA
[2021-11-12] MEDS: KCL 20MEQ/100ML PREMIX 100 ML IV SCH ×2 (11:23→13:35)
[2021-11-12] MEDS: MORPHINE SULFATE 2 MG/ML CPJ (NOT FOR IM USE) IV PRN ×2 (11:28→23:43)
[2021-11-12 12:16] LABS: NUCLEATED RED BLOOD CELLS 1 /100 WBC; PLATELET ESTIMATE DECREASED
[2021-11-12] MEDS: MIRTAZAPINE 15MG TABLET PO SCH (21:33)
[2021-11-13] VITALS (38 sets, daily range): BP systolic 101–158; BP diastolic 23–99
[2021-11-13] MEDS: BLOOD SUGAR DIAGNOSTIC STRIP TEST SCH ×4 (00:43→18:02)
[2021-11-13] MEDS: SUCRALFATE 1 G/10 ML UDC NG SCH ×4 (00:44→18:02)
[2021-11-13 03:31] LABS: BG BASE EXCESS 5.4 mmol/L (-2.0-2.0); BG DEOXYHEMOGLOBIN 9.6 % (0.0-5.0); BG FRACTION INSPIRED OXYGEN 28; BG HCO3 ACT 29.6 mmol/L (22.0-26.0); BG METHEMOGLOBIN 0.3 % (0.0-1.5); BG OXYGEN SATURATION 90.3 % (92.0-98.5); BG OXYHEMOGLOBIN 89.1 % (94.0-97.0); BG PCO2 41.9 mmHg (35.0-45.0); BG PH 7.467 (7.350-7.450); BG PO2 57.4 mmHg (75.0-100.0); BG SAMPLE SITE ALINE; BG TOTAL HEMOGLOBIN 12.5 g/dL (12.0-18.0); BG VENT MODE NASAL CANNULA
[2021-11-13] MEDS: HYDROCORTISONE SOD SUCCINATE 100 MG/2 ML VIAL IV SCH ×2 (05:55→18:02)
[2021-11-13] MEDS: MEROPENEM 1,000 MG in SODIUM CHLORIDE 0.9% 100 ML IV SCH ×2 (05:55→14:42)
[2021-11-13] MEDS: METOCLOPRAMIDE HCL 10MG/2ML VIAL IV SCH ×3 (05:56→18:02)
[2021-11-13] MEDS: INSULIN LISPRO (LOW DOSE) 100 UNITS/ML SUBCUT SCH ×4 (06:00→18:00)
[2021-11-13 06:18] LABS: BASOPHILS % 0.3 % (0.0-2.0); HEMATOCRIT. 30.7 % (36.0-48.0); HEMOGLOBIN. 10.4 g/dL (12.0-16.0); LYMPHOCYTES % 42.2 % (20.0-50.0); MEAN CORPUSCULAR HEMOGLOBIN 28.9 pg (28.0-32.0); MEAN CORPUSCULAR VOLUME 85.4 fL (81.0-99.0); MEAN PLATELET VOLUME 9.1 fl (7.4-10.4); MONOCYTES % 3.2 % (2.0-8.0); NEUTROPHILS % 54.3 % (40.0-76.0); PLATELET 78 x1000/uL (130-400); RED BLOOD CELL COUNT 3.59 mill/uL (4.2-5.4); RED CELL DISTRIBUTION WIDTH 17.2 % (11.6-14.6)
[2021-11-13] MEDS: MORPHINE SULFATE 2 MG/ML CPJ (NOT FOR IM USE) IV PRN (06:20)
[2021-11-13 06:47] LABS: CHLORIDE 116 mEq/L (98-107)
[2021-11-13] MEDS ORDERED: POTASSIUM CHLORIDE INJ 40 MEQ in DEXT 5% WATER 250 ML IV ONE (08:30)
[2021-11-13] MEDS: LEVOTHYROXINE SODIUM 100 MCG/ VIAL IV SCH (08:42)
[2021-11-13] MEDS: PANTOPRAZOLE SODIUM 40 MG/VIAL IV SCH ×2 (08:42→23:20)
[2021-11-13] MEDS: POTASSIUM-SODIUM PHOSPHATE POWDER PACKET PO SCH (08:42)
[2021-11-13] MEDS: SPIRONOLACTONE 25MG TABLET PO SCH (08:45)
[2021-11-13] MEDS ORDERED: MAGNESIUM 2 G PREMIX 50 ML IV SCH (10:00)
[2021-11-13] MEDS: KCL 20MEQ/100ML PREMIX 100 ML IV SCH ×2 (11:07→13:31)
[2021-11-13] MEDS: DEXTROSE 5% WATER 1,000 ML IV SCH (12:51)
[2021-11-13 18:40] LABS: CHLORIDE 118 mEq/L (98-107)
[2021-11-13] MEDS: MIRTAZAPINE 15MG TABLET PO SCH (21:00)
[2021-11-14] VITALS (11 sets, daily range): BP systolic 110–137; BP diastolic 53–73
[2021-11-14] MEDS: MEROPENEM 1,000 MG in SODIUM CHLORIDE 0.9% 100 ML IV SCH ×4 (00:21→21:45)
[2021-11-14] MEDS: BLOOD SUGAR DIAGNOSTIC STRIP TEST SCH ×5 (00:44→23:48)
[2021-11-14] MEDS: METOCLOPRAMIDE HCL 10MG/2ML VIAL IV SCH ×5 (00:48→23:48)
[2021-11-14] MEDS ORDERED: LIDOCAINE HCL 1% 20ML VIAL (Pyxis) INJ ONE (05:57)
[2021-11-14] MEDS: SUCRALFATE 1 G/10 ML UDC NG SCH ×5 (05:57→23:48)
[2021-11-14] MEDS ORDERED: POLYMYXIN B SULFATE 500000 UNITS/VIAL ONE (05:57)
[2021-11-14] MEDS ORDERED: BUPIVACAINE HCL/PF 0.5% (5MG/ML) 10ML ONE (05:57)
[2021-11-14] MEDS: INSULIN LISPRO (LOW DOSE) 100 UNITS/ML SUBCUT SCH ×5 (05:57→23:53)
[2021-11-14] MEDS: LEVOTHYROXINE SODIUM 100 MCG/ VIAL IV SCH (05:58)
[2021-11-14] MEDS: HYDROCORTISONE SOD SUCCINATE 100 MG/2 ML VIAL IV SCH ×2 (06:24→18:16)
[2021-11-14 06:49] LABS: BASOPHILS % 0.3 % (0.0-2.0); EOSINOPHILS % 0.1 % (0.0-5.0); HEMATOCRIT. 28.1 % (36.0-48.0); HEMOGLOBIN. 9.5 g/dL (12.0-16.0); LYMPHOCYTES % 45.1 % (20.0-50.0); MEAN CORPUSCULAR HEMOGLOBIN 29.2 pg (28.0-32.0); MEAN CORPUSCULAR VOLUME 86.5 fL (81.0-99.0); MEAN PLATELET VOLUME 9.3 fl (7.4-10.4); MONOCYTES % 3.4 % (2.0-8.0); NEUTROPHILS % 51.1 % (40.0-76.0); PLATELET 81 x1000/uL (130-400); RED BLOOD CELL COUNT 3.25 mill/uL (4.2-5.4); RED CELL DISTRIBUTION WIDTH 16.7 % (11.6-14.6)
[2021-11-14 07:26] LABS: CHLORIDE 116 mEq/L (98-107)
[2021-11-14 07:43] LABS: BG BASE EXCESS 7.5 mmol/L (-2.0-2.0); BG CARBOXYHEMOGLOBIN 0.3 % (0.5-1.5); BG DEOXYHEMOGLOBIN 1.4 % (0.0-5.0); BG FRACTION INSPIRED OXYGEN 40; BG METHEMOGLOBIN 0.6 % (0.0-1.5); BG OXYGEN SATURATION 98.6 % (92.0-98.5); BG OXYHEMOGLOBIN 97.7 % (94.0-97.0); BG PH 7.518 (7.350-7.450); BG PO2 137.1 mmHg (75.0-100.0); BG SAMPLE SITE RIGHT BRACHIAL; BG TOTAL HEMOGLOBIN 8.6 g/dL (12.0-18.0); BG TOTAL RESPIRATORY RATE 23 b/min; BG VENT MODE MASK - BIPAP
[2021-11-14] MEDS ORDERED: DEXAMETHASONE 4MG/ML 1ML VIAL ONE (07:50)
[2021-11-14] MEDS ORDERED: ONDANSETRON HCL 4MG/2ML INJ ONE (07:50)
[2021-11-14] MEDS ORDERED: ETOMIDATE 2MG/ML 10ML VIAL IV ONE (07:51)
[2021-11-14] MEDS ORDERED: MIDAZOLAM HCL 2 MG/2 ML VIAL ONE (07:53)
[2021-11-14] MEDS: SPIRONOLACTONE 25MG TABLET PO SCH (09:00)
[2021-11-14] MEDS: PANTOPRAZOLE SODIUM 40 MG/VIAL IV SCH ×2 (09:00→21:13)
[2021-11-14] MEDS ORDERED: KCL 20MEQ/100ML PREMIX 100 ML IV ONE (11:00)
[2021-11-14] MEDS: DEXTROSE 5% WATER 1,000 ML IV SCH (13:33)
[2021-11-14] MEDS: MIRTAZAPINE 15MG TABLET PO SCH ×2 (21:00→21:19)
[2021-11-15] VITALS (12 sets, daily range): BP systolic 112–139; BP diastolic 54–71
[2021-11-15] MEDS: DEXTROSE 5% WATER 1,000 ML IV SCH ×2 (05:18→21:24)
[2021-11-15] MEDS: MEROPENEM 1,000 MG in SODIUM CHLORIDE 0.9% 100 ML IV SCH ×3 (05:40→21:24)
[2021-11-15] MEDS: METOCLOPRAMIDE HCL 10MG/2ML VIAL IV SCH ×3 (05:52→18:06)
[2021-11-15] MEDS: HYDROCORTISONE SOD SUCCINATE 100 MG/2 ML VIAL IV SCH ×2 (05:52→18:06)
[2021-11-15] MEDS: SUCRALFATE 1 G/10 ML UDC NG SCH ×3 (05:53→18:06)
[2021-11-15] MEDS: INSULIN LISPRO (LOW DOSE) 100 UNITS/ML SUBCUT SCH ×3 (06:00→18:00)
[2021-11-15] MEDS: BLOOD SUGAR DIAGNOSTIC STRIP TEST SCH ×3 (06:02→18:02)
[2021-11-15] MEDS: LEVOTHYROXINE SODIUM 100 MCG/ VIAL IV SCH (06:56)
[2021-11-15 09:39] LABS: BG BASE EXCESS 7.3 mmol/L (-2.0-2.0); BG CARBOXYHEMOGLOBIN 0.8 % (0.5-1.5); BG DEOXYHEMOGLOBIN 0.9 % (0.0-5.0); BG FRACTION INSPIRED OXYGEN 40; BG HCO3 ACT 30.6 mmol/L (22.0-26.0); BG METHEMOGLOBIN 0.3 % (0.0-1.5); BG OXYGEN SATURATION 99.1 % (92.0-98.5); BG PCO2 37.8 mmHg (35.0-45.0); BG PH 7.526 (7.350-7.450); BG PO2 158.2 mmHg (75.0-100.0); BG TOTAL HEMOGLOBIN 7.9 g/dL (12.0-18.0); BG VENT MODE MASK - BIPAP
[2021-11-15] MEDS: SPIRONOLACTONE 25MG TABLET PO SCH (10:04)
[2021-11-15] MEDS: PANTOPRAZOLE SODIUM 40 MG/VIAL IV SCH ×2 (10:04→21:24)
[2021-11-15 12:10] LABS: MEAN CORPUSCULAR HEMOGLOBIN 28.4 pg (28.0-32.0); MEAN CORPUSCULAR VOLUME 87.5 fL (81.0-99.0); MEAN PLATELET VOLUME 9.5 fl (7.4-10.4); PLATELET 93 x1000/uL (130-400); RED BLOOD CELL COUNT 2.59 mill/uL (4.2-5.4); RED CELL DISTRIBUTION WIDTH 17.7 % (11.6-14.6)
[2021-11-15 12:17] LABS: CHLORIDE 109 mEq/L (98-107)
[2021-11-15 12:27] LABS: HEMATOCRIT. 22.7 % (36.0-48.0); HEMOGLOBIN. 7.4 g/dL (12.0-16.0)
[2021-11-15 13:30] LABS: PLATELET ESTIMATE DECREASED
[2021-11-15] MEDS ORDERED: POTASSIUM CHLORIDE 20MEQ TABLET SR PO NR (15:00)
[2021-11-15] MEDS ORDERED: POTASSIUM PHOS,M-BASIC-D-BASIC 30 MMOL in DEXT 5% WATER 500 ML IV NR (16:00)
[2021-11-15] MEDS ORDERED: MAGNESIUM 2 G PREMIX 50 ML IV NR (16:00)
[2021-11-15] MEDS: MIRTAZAPINE 15MG TABLET PO SCH (21:24)
[2021-11-16] VITALS (15 sets, daily range): BP systolic 97–132; BP diastolic 45–80
[2021-11-16] MEDS: SUCRALFATE 1 G/10 ML UDC NG SCH ×4 (01:31→17:30)
[2021-11-16] MEDS: METOCLOPRAMIDE HCL 10MG/2ML VIAL IV SCH ×4 (01:31→17:30)
[2021-11-16] MEDS: HYDROCORTISONE SOD SUCCINATE 100 MG/2 ML VIAL IV SCH ×2 (05:56→17:30)
[2021-11-16] MEDS: LEVOTHYROXINE SODIUM 100 MCG/ VIAL IV SCH (05:56)
[2021-11-16] MEDS: BLOOD SUGAR DIAGNOSTIC STRIP TEST SCH ×4 (05:56→17:30)
[2021-11-16] MEDS: MEROPENEM 1,000 MG in SODIUM CHLORIDE 0.9% 100 ML IV SCH ×3 (05:56→21:37)
[2021-11-16] MEDS: INSULIN LISPRO (LOW DOSE) 100 UNITS/ML SUBCUT SCH ×4 (06:00→18:00)
[2021-11-16 06:45] LABS: CHLORIDE 116 mEq/L (98-107)
[2021-11-16 06:48] LABS: MEAN CORPUSCULAR VOLUME 89.1 fL (81.0-99.0); MEAN PLATELET VOLUME 9.5 fl (7.4-10.4); PLATELET 121 x1000/uL (130-400); RED BLOOD CELL COUNT 2.96 mill/uL (4.2-5.4); RED CELL DISTRIBUTION WIDTH 17.9 % (11.6-14.6)
[2021-11-16 06:52] LABS: HEMATOCRIT. 26.4 % (36.0-48.0); HEMOGLOBIN. 8.6 g/dL (12.0-16.0)
[2021-11-16 06:55] LABS: PHOSPHORUS 3.1 mg/dL (2.5-4.9)
[2021-11-16] MEDS: SPIRONOLACTONE 25MG TABLET PO SCH ×2 (09:00→09:15)
[2021-11-16] MEDS: PANTOPRAZOLE SODIUM 40 MG/VIAL IV SCH ×2 (09:14→21:37)
[2021-11-16 10:07] LABS: BG BASE EXCESS 5.9 mmol/L (-2.0-2.0); BG CARBOXYHEMOGLOBIN 0.3 % (0.5-1.5); BG DEOXYHEMOGLOBIN 0.9 % (0.0-5.0); BG FRACTION INSPIRED OXYGEN 100; BG HCO3 ACT 30.7 mmol/L (22.0-26.0); BG METHEMOGLOBIN 0.6 % (0.0-1.5); BG OXYGEN SATURATION 99.1 % (92.0-98.5); BG OXYHEMOGLOBIN 98.2 % (94.0-97.0); BG PCO2 46.2 mmHg (35.0-45.0); BG PO2 358.4 mmHg (75.0-100.0); BG SAMPLE SITE RIGHT RADIAL; BG TOTAL HEMOGLOBIN 8.9 g/dL (12.0-18.0); BG VENT MODE MASK - NRB
[2021-11-16] MEDS: DEXTROSE 5% WATER 1,000 ML IV SCH (14:08)
[2021-11-16] MEDS: ACETAMINOPHEN 325MG TABLET PO PRN (15:23)
[2021-11-16] MEDS ORDERED: MORPHINE SULFATE 2 MG/ML CPJ (NOT FOR IM USE) IV PRN (18:15)
[2021-11-16 18:38] LABS: BG BASE EXCESS 5.5 mmol/L (-2.0-2.0); BG CARBOXYHEMOGLOBIN 0.6 % (0.5-1.5); BG DEOXYHEMOGLOBIN 2.4 % (0.0-5.0); BG FRACTION INSPIRED OXYGEN 36; BG HCO3 ACT 30.4 mmol/L (22.0-26.0); BG METHEMOGLOBIN 0.3 % (0.0-1.5); BG OXYGEN SATURATION 97.6 % (92.0-98.5); BG OXYHEMOGLOBIN 96.7 % (94.0-97.0); BG PCO2 46.3 mmHg (35.0-45.0); BG PH 7.435 (7.350-7.450); BG SAMPLE SITE RIGHT RADIAL; BG TOTAL HEMOGLOBIN 8.7 g/dL (12.0-18.0); BG VENT MODE NASAL CANNULA
[2021-11-16] MEDS: MIRTAZAPINE 15MG TABLET PO SCH (21:37)
[2021-11-16 22:14] LABS: PLATELET ESTIMATE DECREASED
[2021-11-17] VITALS (15 sets, daily range): BP systolic 97–135; BP diastolic 53–82
[2021-11-17] MEDS: SUCRALFATE 1 G/10 ML UDC NG SCH ×5 (00:34→23:58)
[2021-11-17] MEDS: METOCLOPRAMIDE HCL 10MG/2ML VIAL IV SCH ×5 (00:35→23:58)
[2021-11-17] MEDS: BLOOD SUGAR DIAGNOSTIC STRIP TEST SCH ×5 (00:36→23:53)
[2021-11-17] MEDS: INSULIN LISPRO (LOW DOSE) 100 UNITS/ML SUBCUT SCH ×5 (06:00→23:58)
[2021-11-17] MEDS: MEROPENEM 1,000 MG in SODIUM CHLORIDE 0.9% 100 ML IV SCH ×3 (06:31→21:21)
[2021-11-17] MEDS: LEVOTHYROXINE SODIUM 100 MCG/ VIAL IV SCH (06:39)
[2021-11-17] MEDS: HYDROCORTISONE SOD SUCCINATE 100 MG/2 ML VIAL IV SCH ×2 (06:41→18:19)
[2021-11-17 07:49] LABS: BASOPHILS % 0.1 % (0.0-2.0); EOSINOPHILS % 0.2 % (0.0-5.0); HEMATOCRIT. 24.1 % (36.0-48.0); HEMOGLOBIN. 7.7 g/dL (12.0-16.0); LYMPHOCYTES % 44.5 % (20.0-50.0); MEAN CORPUSCULAR HEMOGLOBIN 28.8 pg (28.0-32.0); MEAN CORPUSCULAR VOLUME 90.7 fL (81.0-99.0); MEAN PLATELET VOLUME 9.7 fl (7.4-10.4); MONOCYTES % 3.5 % (2.0-8.0); NEUTROPHILS % 51.7 % (40.0-76.0); PLATELET 126 x1000/uL (130-400); RED BLOOD CELL COUNT 2.66 mill/uL (4.2-5.4); RED CELL DISTRIBUTION WIDTH 17.9 % (11.6-14.6)
[2021-11-17 08:16] LABS: CHLORIDE 113 mEq/L (98-107)
[2021-11-17 08:28] LABS: PHOSPHORUS 2.3 mg/dL (2.5-4.9)
[2021-11-17] MEDS: PANTOPRAZOLE SODIUM 40 MG/VIAL IV SCH ×2 (08:29→20:04)
[2021-11-17] MEDS: DEXTROSE 5% WATER 1,000 ML IV SCH ×2 (08:29→23:45)
[2021-11-17] MEDS: SPIRONOLACTONE 25MG TABLET PO SCH (08:30)
[2021-11-17] MEDS: MIRTAZAPINE 15MG TABLET PO SCH (20:04)
[2021-11-18] VITALS (9 sets, daily range): BP systolic 119–151; BP diastolic 71–87
[2021-11-18] MEDS: INSULIN LISPRO (LOW DOSE) 100 UNITS/ML SUBCUT SCH ×3 (06:00→17:04)
[2021-11-18] MEDS: SUCRALFATE 1 G/10 ML UDC NG SCH ×3 (06:17→17:01)
[2021-11-18] MEDS: HYDROCORTISONE SOD SUCCINATE 100 MG/2 ML VIAL IV SCH ×2 (06:17→17:01)
[2021-11-18] MEDS: METOCLOPRAMIDE HCL 10MG/2ML VIAL IV SCH ×3 (06:17→17:01)
[2021-11-18] MEDS: BLOOD SUGAR DIAGNOSTIC STRIP TEST SCH ×3 (06:17→17:04)
[2021-11-18] MEDS: MEROPENEM 1,000 MG in SODIUM CHLORIDE 0.9% 100 ML IV SCH ×3 (06:20→21:37)
[2021-11-18] MEDS: LEVOTHYROXINE SODIUM 100 MCG/ VIAL IV SCH (06:20)
[2021-11-18 07:09] LABS: BASOPHILS % 0.2 % (0.0-2.0); EOSINOPHILS % 0.3 % (0.0-5.0); HEMATOCRIT. 25.5 % (36.0-48.0); HEMOGLOBIN. 8.3 g/dL (12.0-16.0); MEAN CORPUSCULAR HEMOGLOBIN 29.3 pg (28.0-32.0); MEAN CORPUSCULAR VOLUME 89.5 fL (81.0-99.0); MEAN PLATELET VOLUME 10.1 fl (7.4-10.4); MONOCYTES % 3.8 % (2.0-8.0); NEUTROPHILS % 50.7 % (40.0-76.0); PLATELET 126 x1000/uL (130-400); RED BLOOD CELL COUNT 2.85 mill/uL (4.2-5.4)
[2021-11-18 07:38] LABS: CHLORIDE 110 mEq/L (98-107)
[2021-11-18 07:50] LABS: PHOSPHORUS 2.2 mg/dL (2.5-4.9)
[2021-11-18] MEDS: SPIRONOLACTONE 25MG TABLET PO SCH (08:48)
[2021-11-18] MEDS ORDERED: MAGNESIUM 2 G PREMIX 50 ML IV SCH (09:00)
[2021-11-18] MEDS ORDERED: POTASSIUM PHOS,M-BASIC-D-BASIC 15 MMOL in DEXT 5% WATER 245 ML IV SCH (09:00)
[2021-11-18] MEDS: DEXTROSE 5% WATER 1,000 ML IV SCH (17:04)
[2021-11-18] MEDS: MIRTAZAPINE 15MG TABLET PO SCH ×2 (20:46→20:52)
[2021-11-19] MEDS: METOCLOPRAMIDE HCL 10MG/2ML VIAL IV SCH ×4 (00:16→18:54)
[2021-11-19] MEDS: SUCRALFATE 1 G/10 ML UDC NG SCH ×3 (00:16→12:00)
[2021-11-19] MEDS: MEROPENEM 1,000 MG in SODIUM CHLORIDE 0.9% 100 ML IV SCH (05:51)
[2021-11-19] MEDS: DEXTROSE 50% WATER 50ML SYRINGE IV PRN ×2 (05:51→05:52)
[2021-11-19] MEDS: INSULIN LISPRO (LOW DOSE) 100 UNITS/ML SUBCUT SCH ×4 (06:00→18:00)
[2021-11-19] MEDS: BLOOD SUGAR DIAGNOSTIC STRIP TEST SCH ×4 (06:35→18:45)
[2021-11-19] MEDS: HYDROCORTISONE SOD SUCCINATE 100 MG/2 ML VIAL IV SCH ×2 (06:35→18:54)
[2021-11-19 06:39] LABS: CHLORIDE 112 mEq/L (98-107)
[2021-11-19 06:53] LABS: PHOSPHORUS 2.3 mg/dL (2.5-4.9)
[2021-11-19] MEDS: SPIRONOLACTONE 25MG TABLET PO SCH (09:00)
[2021-11-19] MEDS: ACETAMINOPHEN 325MG TABLET PO PRN (10:24)
[2021-11-19] MEDS ORDERED: ALBUTEROL (0.083%) 2.5MG/3ML NEB HHN PRN (12:45)
[2021-11-19] MEDS ORDERED: IPRATROPIUM BROMIDE (0.02%) 0.5MG/2.5ML NEB HHN PRN (12:45)
[2021-11-19] MEDS ORDERED: FUROSEMIDE 20MG/2ML VIAL IVP NR (12:45)
[2021-11-19 13:10] LABS: HEMATOCRIT. 25.3 % (36.0-48.0); HEMOGLOBIN. 8.1 g/dL (12.0-16.0); MEAN CORPUSCULAR HEMOGLOBIN 28.7 pg (28.0-32.0); MEAN CORPUSCULAR VOLUME 90.2 fL (81.0-99.0); MEAN PLATELET VOLUME 9.1 fl (7.4-10.4); PLATELET 128 x1000/uL (130-400); RED BLOOD CELL COUNT 2.81 mill/uL (4.2-5.4); RED CELL DISTRIBUTION WIDTH 19.1 % (11.6-14.6)
[2021-11-19 13:36] LABS: BG BASE EXCESS 5.1 mmol/L (-2.0-2.0); BG CARBOXYHEMOGLOBIN 1.2 % (0.5-1.5); BG DEOXYHEMOGLOBIN 1.5 % (0.0-5.0); BG FRACTION INSPIRED OXYGEN 28; BG HCO3 ACT 28.7 mmol/L (22.0-26.0); BG METHEMOGLOBIN 0.1 % (0.0-1.5); BG OXYGEN SATURATION 98.5 % (92.0-98.5); BG OXYHEMOGLOBIN 97.2 % (94.0-97.0); BG PCO2 38.1 mmHg (35.0-45.0); BG PH 7.495 (7.350-7.450); BG PO2 111.1 mmHg (75.0-100.0); BG SAMPLE SITE RIGHT RADIAL; BG TOTAL HEMOGLOBIN 8.6 g/dL (12.0-18.0); BG VENT MODE NASAL CANNULA
[2021-11-19] MEDS ORDERED: SUCRALFATE 1 G/10 ML UDC NG NR (13:45)
[2021-11-19] MEDS ORDERED: CLONIDINE 0.1MG TABLET PO PRN (16:30)
[2021-11-19] MEDS ORDERED: NALOXONE HCL 0.4MG/ML VIAL IV PRN (18:45)
[2021-11-19 20:00] VITALS: BP 90/50
[2021-11-19 21:49] LABS: PLATELET ESTIMATE DECREASED
[2021-11-19] MEDS: MIRTAZAPINE 15MG TABLET PO SCH (23:11)
[2021-11-20] VITALS: BP 122/61
[2021-11-20 04:00] VITALS: BP 117/59
[2021-11-20] MEDS: INSULIN LISPRO (LOW DOSE) 100 UNITS/ML SUBCUT SCH ×5 (06:00→23:18)
[2021-11-20] MEDS: METOCLOPRAMIDE HCL 10MG/2ML VIAL IV SCH ×5 (06:51→23:06)
[2021-11-20] MEDS: BLOOD SUGAR DIAGNOSTIC STRIP TEST SCH ×5 (06:53→23:18)
[2021-11-20 06:54] LABS: BASOPHILS % 0.1 % (0.0-2.0); EOSINOPHILS % 0.1 % (0.0-5.0); HEMATOCRIT. 26.2 % (36.0-48.0); HEMOGLOBIN. 8.5 g/dL (12.0-16.0); LYMPHOCYTES % 54.5 % (20.0-50.0); MEAN CORPUSCULAR HEMOGLOBIN 29.2 pg (28.0-32.0); MEAN CORPUSCULAR VOLUME 90.2 fL (81.0-99.0); MEAN PLATELET VOLUME 9.3 fl (7.4-10.4); MONOCYTES % 3.9 % (2.0-8.0); NEUTROPHILS % 41.4 % (40.0-76.0); PLATELET 127 x1000/uL (130-400); RED BLOOD CELL COUNT 2.91 mill/uL (4.2-5.4); RED CELL DISTRIBUTION WIDTH 20.5 % (11.6-14.6)
[2021-11-20] MEDS: HYDROCORTISONE SOD SUCCINATE 100 MG/2 ML VIAL IV SCH ×2 (06:59→17:51)
[2021-11-20 07:27] LABS: CHLORIDE 111 mEq/L (98-107)
[2021-11-20 07:35] LABS: PHOSPHORUS 2.5 mg/dL (2.5-4.9)
[2021-11-20 08:00] VITALS: BP 112/63
[2021-11-20] MEDS: LEVOTHYROXINE SODIUM 100 MCG/ VIAL IV SCH (10:04)
[2021-11-20] MEDS ORDERED: FUROSEMIDE 20MG/2ML VIAL IVP NR (11:00)
[2021-11-20] MEDS ORDERED: KCL 20MEQ/100ML PREMIX 100 ML IV SCH (11:00)
[2021-11-20 12:00] VITALS: BP 116/60
[2021-11-20] MEDS: NYSTATIN/TRIAMCIN CREAM 15GM TOP SCH (16:00)
[2021-11-20 17:17] VITALS: BP 109/61
[2021-11-20] MEDS: ACETAMINOPHEN 325MG TABLET PO PRN (17:51)
[2021-11-20 20:00] VITALS: BP 102/39
[2021-11-20] MEDS: MIRTAZAPINE 15MG TABLET PO SCH (23:06)
[2021-11-21] VITALS (11 sets, daily range): BP systolic 93–146; BP diastolic 49–96
[2021-11-21 02:03] LABS: BG BASE EXCESS 6.5 mmol/L (-2.0-2.0); BG CARBOXYHEMOGLOBIN 0.2 % (0.5-1.5); BG DEOXYHEMOGLOBIN 3.8 % (0.0-5.0); BG FRACTION INSPIRED OXYGEN 32; BG HCO3 ACT 29.8 mmol/L (22.0-26.0); BG METHEMOGLOBIN 0.6 % (0.0-1.5); BG OXYGEN SATURATION 96.2 % (92.0-98.5); BG OXYHEMOGLOBIN 95.4 % (94.0-97.0); BG PCO2 37.1 mmHg (35.0-45.0); BG PH 7.522 (7.350-7.450); BG PO2 90.2 mmHg (75.0-100.0); BG SAMPLE SITE LEFT RADIAL; BG TOTAL HEMOGLOBIN 9.3 g/dL (12.0-18.0)
[2021-11-21] MEDS: INSULIN LISPRO (LOW DOSE) 100 UNITS/ML SUBCUT SCH ×3 (06:00→17:22)
[2021-11-21] MEDS: HYDROCORTISONE SOD SUCCINATE 100 MG/2 ML VIAL IV SCH ×2 (06:04→17:34)
[2021-11-21] MEDS: LEVOTHYROXINE SODIUM 100 MCG/ VIAL IV SCH (06:04)
[2021-11-21] MEDS: METOCLOPRAMIDE HCL 10MG/2ML VIAL IV SCH ×3 (06:04→17:24)
[2021-11-21] MEDS: BLOOD SUGAR DIAGNOSTIC STRIP TEST SCH ×3 (06:14→17:22)
[2021-11-21] MEDS: NYSTATIN/TRIAMCIN CREAM 15GM TOP SCH ×3 (09:00→17:24)
[2021-11-21] MEDS ORDERED: POTASSIUM CHLORIDE INJ 40 MEQ in DEXT 5% WATER 250 ML IV ONE (10:45)
[2021-11-21] MEDS: KCL 20MEQ/100ML PREMIX 100 ML IV SCH ×2 (12:31→14:55)
[2021-11-21 13:29] LABS: BASOPHILS % 0.1 % (0.0-2.0); EOSINOPHILS % 1.5 % (0.0-5.0); HEMATOCRIT. 25.4 % (36.0-48.0); HEMOGLOBIN. 8.1 g/dL (12.0-16.0); LYMPHOCYTES % 35.7 % (20.0-50.0); MEAN CORPUSCULAR HEMOGLOBIN 28.4 pg (28.0-32.0); MEAN CORPUSCULAR VOLUME 89.3 fL (81.0-99.0); MEAN PLATELET VOLUME 9.1 fl (7.4-10.4); MONOCYTES % 4.1 % (2.0-8.0); NEUTROPHILS % 58.6 % (40.0-76.0); PLATELET 146 x1000/uL (130-400); RED BLOOD CELL COUNT 2.84 mill/uL (4.2-5.4); RED CELL DISTRIBUTION WIDTH 20.8 % (11.6-14.6)
[2021-11-21 13:29] LABS: CHLORIDE 111 mEq/L (98-107)
[2021-11-21 13:47] LABS: PHOSPHORUS 2.8 mg/dL (2.5-4.9)
[2021-11-21] MEDS: MIRTAZAPINE 15MG TABLET PO SCH (22:32)
[2021-11-22] VITALS (11 sets, daily range): BP systolic 110–135; BP diastolic 60–79
[2021-11-22] MEDS: METOCLOPRAMIDE HCL 10MG/2ML VIAL IV SCH ×4 (01:56→17:05)
[2021-11-22] MEDS: INSULIN LISPRO (LOW DOSE) 100 UNITS/ML SUBCUT SCH ×4 (06:00→17:07)
[2021-11-22] MEDS: BLOOD SUGAR DIAGNOSTIC STRIP TEST SCH ×4 (06:09→17:06)
[2021-11-22] MEDS: HYDROCORTISONE SOD SUCCINATE 100 MG/2 ML VIAL IV SCH ×2 (06:10→17:05)
[2021-11-22 06:13] LABS: CHLORIDE 113 mEq/L (98-107)
[2021-11-22 06:18] LABS: PHOSPHORUS 2.8 mg/dL (2.5-4.9)
[2021-11-22] MEDS: LEVOTHYROXINE SODIUM 100 MCG/ VIAL IV SCH (06:59)
[2021-11-22] MEDS: NYSTATIN/TRIAMCIN CREAM 15GM TOP SCH ×3 (08:23→17:06)
[2021-11-22] MEDS ORDERED: MAGNESIUM 2 G PREMIX 50 ML IV SCH (11:30)
[2021-11-22 12:42] LABS: BASOPHILS % 0.1 % (0.0-2.0); HEMATOCRIT. 25.4 % (36.0-48.0); HEMOGLOBIN. 8.2 g/dL (12.0-16.0); LYMPHOCYTES % 29.3 % (20.0-50.0); MEAN CORPUSCULAR HEMOGLOBIN 28.9 pg (28.0-32.0); MEAN CORPUSCULAR VOLUME 89.9 fL (81.0-99.0); MONOCYTES % 4.6 % (2.0-8.0); PLATELET 145 x1000/uL (130-400); RED BLOOD CELL COUNT 2.82 mill/uL (4.2-5.4); RED CELL DISTRIBUTION WIDTH 20.5 % (11.6-14.6)
[2021-11-22] MEDS ORDERED: ALBUTEROL (0.083%) 2.5MG/3ML NEB HHN PRN (13:00)
[2021-11-22] MEDS: KCL 20MEQ/100ML PREMIX 100 ML IV SCH ×2 (15:00→17:06)
[2021-11-22] MEDS: MIRTAZAPINE 15MG TABLET PO SCH (21:43)
[2021-11-23] VITALS (13 sets, daily range): BP systolic 104–144; BP diastolic 46–91
[2021-11-23] MEDS: METOCLOPRAMIDE HCL 10MG/2ML VIAL IV SCH ×4 (02:01→17:02)
[2021-11-23] MEDS: INSULIN LISPRO (LOW DOSE) 100 UNITS/ML SUBCUT SCH ×4 (06:00→17:03)
[2021-11-23] MEDS: HYDROCORTISONE SOD SUCCINATE 100 MG/2 ML VIAL IV SCH ×2 (06:03→17:02)
[2021-11-23] MEDS: LEVOTHYROXINE SODIUM 100 MCG/ VIAL IV SCH (06:04)
[2021-11-23] MEDS: BLOOD SUGAR DIAGNOSTIC STRIP TEST SCH ×4 (06:12→17:04)
[2021-11-23] MEDS: DEXTROSE 50% WATER 50ML SYRINGE IV PRN (06:13)
[2021-11-23] MEDS: NYSTATIN/TRIAMCIN CREAM 15GM TOP SCH ×3 (09:05→17:03)
[2021-11-23 10:15] LABS: BASOPHILS % 0.1 % (0.0-2.0); HEMATOCRIT. 27.3 % (36.0-48.0); HEMOGLOBIN. 8.9 g/dL (12.0-16.0); LYMPHOCYTES % 21.6 % (20.0-50.0); MEAN CORPUSCULAR HEMOGLOBIN 28.9 pg (28.0-32.0); MEAN CORPUSCULAR VOLUME 88.8 fL (81.0-99.0); MEAN PLATELET VOLUME 8.9 fl (7.4-10.4); MONOCYTES % 4.8 % (2.0-8.0); NEUTROPHILS % 73.5 % (40.0-76.0); PLATELET 148 x1000/uL (130-400); RED BLOOD CELL COUNT 3.07 mill/uL (4.2-5.4); RED CELL DISTRIBUTION WIDTH 20.7 % (11.6-14.6)
[2021-11-23 10:25] LABS: CHLORIDE 115 mEq/L (98-107)
[2021-11-23 10:31] LABS: PHOSPHORUS 3.2 mg/dL (2.5-4.9)
[2021-11-23] MEDS ORDERED: POTASSIUM CHLORIDE 20MEQ TABLET SR PO NR (14:45)
[2021-11-23] MEDS: DEXTROSE 5% WATER 1,000 ML IV SCH (17:03)
[2021-11-23] MEDS: MIRTAZAPINE 15MG TABLET PO SCH (21:00)
[2021-11-24] VITALS (11 sets, daily range): BP systolic 89–130; BP diastolic 38–81
[2021-11-24] MEDS: METOCLOPRAMIDE HCL 10MG/2ML VIAL IV SCH ×4 (01:13→17:39)
[2021-11-24] MEDS: INSULIN LISPRO (LOW DOSE) 100 UNITS/ML SUBCUT SCH ×4 (06:00→17:11)
[2021-11-24] MEDS: BLOOD SUGAR DIAGNOSTIC STRIP TEST SCH ×4 (06:35→17:11)
[2021-11-24] MEDS: LEVOTHYROXINE SODIUM 100 MCG/ VIAL IV SCH (06:37)
[2021-11-24] MEDS: HYDROCORTISONE SOD SUCCINATE 100 MG/2 ML VIAL IV SCH ×2 (06:37→17:39)
[2021-11-24] MEDS: NYSTATIN/TRIAMCIN CREAM 15GM TOP SCH ×3 (08:15→18:09)
[2021-11-24 08:22] LABS: CHLORIDE 116 mEq/L (98-107)
[2021-11-24 08:40] LABS: BASOPHILS % 0.1 % (0.0-2.0); EOSINOPHILS % 0.5 % (0.0-5.0); HEMOGLOBIN. 8.5 g/dL (12.0-16.0); LYMPHOCYTES % 35.7 % (20.0-50.0); MEAN CORPUSCULAR HEMOGLOBIN 29.4 pg (28.0-32.0); MEAN CORPUSCULAR VOLUME 89.9 fL (81.0-99.0); MEAN PLATELET VOLUME 10.1 fl (7.4-10.4); MONOCYTES % 5.1 % (2.0-8.0); NEUTROPHILS % 58.6 % (40.0-76.0); PLATELET 89 x1000/uL (130-400); RED BLOOD CELL COUNT 2.89 mill/uL (4.2-5.4)
[2021-11-24 11:20] LABS: INR 1.3
[2021-11-24] MEDS ORDERED: CEFAZOLIN 1000MG PREMIX 50 ML IV NR (12:00)
[2021-11-24] MEDS ORDERED: CEFAZOLIN SODIUM 1000MG/VIAL IV ONE (12:15)
[2021-11-24] MEDS ORDERED: MIDAZOLAM HCL 2 MG/2 ML VIAL ONE (13:13)
[2021-11-24] MEDS ORDERED: ETOMIDATE 2MG/ML 10ML VIAL IV ONE (13:13)
[2021-11-24] MEDS ORDERED: PHENYLEPHRINE HCL 10 MG/ML 1ML (IV VIAL) IV ONE (13:14)
[2021-11-24] MEDS ORDERED: PROPOFOL 200MG/20ML VIAL IV ONE (13:37)
[2021-11-24] MEDS: PHYTONADIONE 10MG/ML AMP SUBCUT SCH (15:40)
[2021-11-24] MEDS: DEXTROSE 5% WATER 1,000 ML IV SCH (15:42)
[2021-11-24] MEDS: MORPHINE SULFATE 2 MG/ML CPJ (NOT FOR IM USE) IV PRN (16:45)
[2021-11-24] MEDS: MIRTAZAPINE 15MG TABLET PO SCH (20:38)
[2021-11-25] VITALS (12 sets, daily range): BP systolic 94–140; BP diastolic 46–80
[2021-11-25] MEDS: BLOOD SUGAR DIAGNOSTIC STRIP TEST SCH ×3 (00:43→12:00)
[2021-11-25] MEDS: METOCLOPRAMIDE HCL 10MG/2ML VIAL IV SCH ×5 (00:44→23:09)
[2021-11-25] MEDS: INSULIN LISPRO (LOW DOSE) 100 UNITS/ML SUBCUT SCH ×3 (06:00→12:00)
[2021-11-25] MEDS: LEVOTHYROXINE SODIUM 100 MCG/ VIAL IV SCH (06:12)
[2021-11-25] MEDS: HYDROCORTISONE SOD SUCCINATE 100 MG/2 ML VIAL IV SCH ×2 (06:12→18:31)
[2021-11-25 07:10] LABS: CHLORIDE 115 mEq/L (98-107)
[2021-11-25 07:16] LABS: HEMATOCRIT. 25.2 % (36.0-48.0); HEMOGLOBIN. 8.2 g/dL (12.0-16.0); LYMPHOCYTES % 33.1 % (20.0-50.0); MEAN CORPUSCULAR HEMOGLOBIN 29.6 pg (28.0-32.0); MEAN CORPUSCULAR VOLUME 90.7 fL (81.0-99.0); MEAN PLATELET VOLUME 9.6 fl (7.4-10.4); MONOCYTES % 3.8 % (2.0-8.0); NEUTROPHILS % 63.1 % (40.0-76.0); PLATELET 121 x1000/uL (130-400); RED BLOOD CELL COUNT 2.78 mill/uL (4.2-5.4); RED CELL DISTRIBUTION WIDTH 20.6 % (11.6-14.6)
[2021-11-25] MEDS: POTASSIUM CHLORIDE 20MEQ/PACKET GT SCH (09:32)
[2021-11-25] MEDS: PHYTONADIONE 10MG/ML AMP SUBCUT SCH (09:32)
[2021-11-25] MEDS: NYSTATIN/TRIAMCIN CREAM 15GM TOP SCH ×3 (09:40→18:32)
[2021-11-25] MEDS ORDERED: POTASSIUM CHLORIDE 20MEQ/PACKET PEG NR (11:30)
[2021-11-25] MEDS: MORPHINE SULFATE 2 MG/ML CPJ (NOT FOR IM USE) IV PRN (15:57)
[2021-11-25] MEDS: DEXTROSE 5% WATER 1,000 ML IV SCH (18:31)
[2021-11-25] MEDS: MIRTAZAPINE 15MG TABLET PO SCH (21:36)
[2021-11-26] VITALS (12 sets, daily range): BP systolic 94–145; BP diastolic 48–87
[2021-11-26] MEDS: HYDROCORTISONE SOD SUCCINATE 100 MG/2 ML VIAL IV SCH ×2 (05:18→17:06)
[2021-11-26] MEDS: METOCLOPRAMIDE HCL 10MG/2ML VIAL IV SCH ×3 (05:19→17:06)
[2021-11-26] MEDS ORDERED: LEVOTHYROXINE SODIUM 100 MCG/ VIAL IV SCH (06:50)
[2021-11-26 07:52] LABS: HEMATOCRIT. 24.9 % (36.0-48.0); LYMPHOCYTES % 24.7 % (20.0-50.0); MEAN CORPUSCULAR HEMOGLOBIN 30.1 pg (28.0-32.0); MEAN CORPUSCULAR VOLUME 92.9 fL (81.0-99.0); MEAN PLATELET VOLUME 9.9 fl (7.4-10.4); NEUTROPHILS % 71.3 % (40.0-76.0); PLATELET 104 x1000/uL (130-400); RED BLOOD CELL COUNT 2.68 mill/uL (4.2-5.4)
[2021-11-26 08:01] LABS: CHLORIDE 116 mEq/L (98-107)
[2021-11-26] MEDS: PHYTONADIONE 10MG/ML AMP SUBCUT SCH (08:39)
[2021-11-26] MEDS: POTASSIUM CHLORIDE 20MEQ/PACKET GT SCH (08:39)
[2021-11-26] MEDS: NYSTATIN/TRIAMCIN CREAM 15GM TOP SCH ×3 (08:39→17:05)
[2021-11-26] MEDS: MAGNESIUM OXIDE 400MG TABLET GT SCH ×2 (09:30→20:22)
[2021-11-26] MEDS: MORPHINE SULFATE 2 MG/ML CPJ (NOT FOR IM USE) IV PRN (11:32)
[2021-11-26] MEDS: MIRTAZAPINE 15MG TABLET PO SCH (20:22)
[2021-11-27] VITALS (8 sets, daily range): BP systolic 123–158; BP diastolic 80–104
[2021-11-27] MEDS: METOCLOPRAMIDE HCL 10MG/2ML VIAL IV SCH ×3 (02:36→05:22)
[2021-11-27] MEDS: HYDROCORTISONE SOD SUCCINATE 100 MG/2 ML VIAL IV SCH ×2 (05:22→17:31)
[2021-11-27 07:30] LABS: HEMATOCRIT. 25.4 % (36.0-48.0); HEMOGLOBIN. 8.3 g/dL (12.0-16.0); LYMPHOCYTES % 20.6 % (20.0-50.0); MEAN CORPUSCULAR HEMOGLOBIN 30.1 pg (28.0-32.0); MEAN PLATELET VOLUME 9.5 fl (7.4-10.4); MONOCYTES % 2.6 % (2.0-8.0); NEUTROPHILS % 76.8 % (40.0-76.0); PLATELET 121 x1000/uL (130-400); RED BLOOD CELL COUNT 2.76 mill/uL (4.2-5.4); RED CELL DISTRIBUTION WIDTH 21.7 % (11.6-14.6)
[2021-11-27 07:41] LABS: CHLORIDE 113 mEq/L (98-107)
[2021-11-27 07:48] LABS: PHOSPHORUS 2.5 mg/dL (2.5-4.9)
[2021-11-27] MEDS: POTASSIUM CHLORIDE 20MEQ/PACKET GT SCH (09:02)
[2021-11-27] MEDS: MAGNESIUM OXIDE 400MG TABLET GT SCH ×2 (09:02→21:35)
[2021-11-27] MEDS: NYSTATIN/TRIAMCIN CREAM 15GM TOP SCH ×3 (09:03→17:37)
[2021-11-27] MEDS: MIRTAZAPINE 15MG TABLET PO SCH (21:35)
[2021-11-27] MEDS: ACETAMINOPHEN 650MG/20.3ML UDC PO PRN (21:51)
[2021-11-28] VITALS (25 sets, daily range): BP systolic 59–113; BP diastolic 17–67
[2021-11-28 01:37] LABS: BG BASE EXCESS 2.8 mmol/L (-2.0-2.0); BG CARBOXYHEMOGLOBIN 1.2 % (0.5-1.5); BG DEOXYHEMOGLOBIN 7.5 % (0.0-5.0); BG FRACTION INSPIRED OXYGEN 60; BG HCO3 ACT 26.4 mmol/L (22.0-26.0); BG METHEMOGLOBIN 0.3 % (0.0-1.5); BG OXYGEN SATURATION 92.4 % (92.0-98.5); BG PCO2 36.4 mmHg (35.0-45.0); BG PH 7.479 (7.350-7.450); BG PO2 65.6 mmHg (75.0-100.0); BG SAMPLE SITE RIGHT BRACHIAL; BG TOTAL HEMOGLOBIN 8.5 g/dL (12.0-18.0); BG VENT MODE MASK - SIMPLE
[2021-11-28] MEDS: ACETAMINOPHEN 650MG/20.3ML UDC PO PRN (04:20)
[2021-11-28] MEDS: HYDROCORTISONE SOD SUCCINATE 100 MG/2 ML VIAL IV SCH (05:11)
[2021-11-28] MEDS ORDERED: DOPAMINE 800MG PREMIX (DOUBLE) 250 ML IV PRN (07:00)
[2021-11-28] MEDS ORDERED: PHENYLEPHRINE 100 MG in DEXT 5% WATER 240 ML IV PRN (08:00)
[2021-11-28] MEDS ORDERED: NOREPINEPHRINE 32 MG in DEXT 5% WATER 218 ML IV PRN (08:00)
[2021-11-28] MEDS ORDERED: EPINEPHRINE 0.1MG/ML (1:10,000) 10ML SYR ONE (08:37)
[2021-11-28] MEDS ORDERED: SODIUM BICARBONATE 8.4% 1 MEQ/ML 50ML SYR IV ONE (08:37)
[2021-11-28] MEDS ORDERED: DEXTROSE 50% WATER 50ML SYRINGE IV ONE (08:37)
[2021-11-28] MEDS ORDERED: CALCIUM CHLORIDE 1GM/10ML SYR IV ONE (08:37)
[2021-11-28 09:07] LABS: BG FRACTION INSPIRED OXYGEN 100; BG HCO3 ACT 14.2 mmol/L (22.0-26.0); BG PCO2 44.3 mmHg (35.0-45.0); BG PH 7.125 (7.350-7.450); BG PO2 162.1 mmHg (75.0-100.0); BG SAMPLE SITE LEFT RADIAL; BG TOTAL HEMOGLOBIN < 4.5 g/dL (12.0-18.0); BG VENT MODE VENT - AC
[2021-11-28] MEDS: MAGNESIUM OXIDE 400MG TABLET GT SCH (09:53)
[2021-11-28] MEDS: POTASSIUM CHLORIDE 20MEQ/PACKET GT SCH (09:53)
[2021-11-28] MEDS: NYSTATIN/TRIAMCIN CREAM 15GM TOP SCH (09:54)
[2021-11-28] MEDS ORDERED: SODIUM BICARBONATE 8.4% 1 MEQ/ML 50ML SYR IV NR (10:18)
== END 2021-11-28 16:41 | DRG 720 ==
LOC: ER 15:04 → EDBEDREQ 17:24 → EDBEDREQTM 17:24 → CVICU 17:46 → EDBEDREQSVC 17:52 → EDBEDREQTM 17:52 → ENRESERV 19:28 → 5EST 10-28 19:00 → 6WST 11-03 14:10 → 5EST 11-03 14:19 → 6WST 11-03 16:14 → MICUSO 11-07 20:20 → CVICU 11-09 18:07 → 3WST 11-13 19:06 → 6EST 11-18 14:00 → 6WST 11-19 18:22 → 3WST 11-21 02:20 → 6EST 11-27 10:17 → MICUSO 11-28 06:40
PROVIDERS: ADMIT Internal Medicine; ATTEND Internal Medicine
PROC: 5A1955Z Respiratory Ventilation, Greater than 96 Consecutive Hours (ICD-10-PCS; principal; 2021-10-10)
PROC: 0BH17EZ Insertion of Endotracheal Airway into Trachea, Via Natural or Artificial Opening (ICD-10-PCS; 2021-10-10)
PROC: 5A09357 Assistance with Respiratory Ventilation, Less than 24 Consecutive Hours, Continuous Positive Airway Pressure (ICD-10-PCS; 2021-10-10)
PROC: 4A10X4Z Monitoring of Central Nervous Electrical Activity, External Approach (ICD-10-PCS; 2021-10-15)
PROC: 4A023N7 Measurement of Cardiac Sampling and Pressure, Left Heart, Percutaneous Approach (ICD-10-PCS; 2021-10-23)
PROC: B211YZZ Fluoroscopy of Multiple Coronary Arteries using Other Contrast (ICD-10-PCS; 2021-10-23)
PROC: B41FYZZ Fluoroscopy of Right Lower Extremity Arteries using Other Contrast (ICD-10-PCS; 2021-10-23)
PROC: B215YZZ Fluoroscopy of Left Heart using Other Contrast (ICD-10-PCS; 2021-10-23)
PROC: 5A09457 Assistance with Respiratory Ventilation, 24-96 Consecutive Hours, Continuous Positive Airway Pressure (ICD-10-PCS; 2021-10-24)
PROC: 5A09357 Assistance with Respiratory Ventilation, Less than 24 Consecutive Hours, Continuous Positive Airway Pressure (ICD-10-PCS; 2021-10-26)
PROC: 5A09357 Assistance with Respiratory Ventilation, Less than 24 Consecutive Hours, Continuous Positive Airway Pressure (ICD-10-PCS; 2021-10-28)
PROC: B548ZZA Ultrasonography of Superior Vena Cava, Guidance (ICD-10-PCS; 2021-11-05)
PROC: 02HV33Z Insertion of Infusion Device into Superior Vena Cava, Percutaneous Approach (ICD-10-PCS; 2021-11-05)
PROC: 30233N1 Transfusion of Nonautologous Red Blood Cells into Peripheral Vein, Percutaneous Approach (ICD-10-PCS; 2021-11-05)
PROC: 30233K1 Transfusion of Nonautologous Frozen Plasma into Peripheral Vein, Percutaneous Approach (ICD-10-PCS; 2021-11-08)
PROC: 5A09457 Assistance with Respiratory Ventilation, 24-96 Consecutive Hours, Continuous Positive Airway Pressure (ICD-10-PCS; 2021-11-10)
PROC: 5A09457 Assistance with Respiratory Ventilation, 24-96 Consecutive Hours, Continuous Positive Airway Pressure (ICD-10-PCS; 2021-11-13)
PROC: 0JB80ZZ Excision of Abdomen Subcutaneous Tissue and Fascia, Open Approach (ICD-10-PCS; 2021-11-14)
PROC: 0DH63UZ Insertion of Feeding Device into Stomach, Percutaneous Approach (ICD-10-PCS; 2021-11-24)
PROC: 5A12012 Performance of Cardiac Output, Single, Manual (ICD-10-PCS; 2021-11-28)
PROC: 5A1935Z Respiratory Ventilation, Less than 24 Consecutive Hours (ICD-10-PCS; 2021-11-28)
DX: A41.01 Sepsis due to Methicillin susceptible Staphylococcus aureus (principal); J96.01 Acute respiratory failure with hypoxia; G62.81 Critical illness polyneuropathy; K63.1 Perforation of intestine (nontraumatic); J10.08 Influenza due to other identified influenza virus with other specified pneumonia; D61.818 Other pancytopenia; K72.00 Acute and subacute hepatic failure without coma; J15.211 Pneumonia due to Methicillin susceptible Staphylococcus aureus; I46.9 Cardiac arrest, cause unspecified; R65.21 Severe sepsis with septic shock; E27.40 Unspecified adrenocortical insufficiency; I27.20 Pulmonary hypertension, unspecified; I21.4 Non-ST elevation (NSTEMI) myocardial infarction; M62.82 Rhabdomyolysis; Z20.822 Contact with and (suspected) exposure to COVID-19; E43 Unspecified severe protein-calorie malnutrition; G92.8 Other toxic encephalopathy; I50.23 Acute on chronic systolic (congestive) heart failure; F17.200 Nicotine dependence, unspecified, uncomplicated; E83.51 Hypocalcemia; E87.1 Hypo-osmolality and hyponatremia; E03.9 Hypothyroidism, unspecified; D75.89 Other specified diseases of blood and blood-forming organs; K76.0 Fatty (change of) liver, not elsewhere classified; E87.6 Hypokalemia; I51.81 Takotsubo syndrome; J45.909 Unspecified asthma, uncomplicated; M06.9 Rheumatoid arthritis, unspecified; M19.90 Unspecified osteoarthritis, unspecified site; N17.9 Acute kidney failure, unspecified; B36.9 Superficial mycosis, unspecified; B96.1 Klebsiella pneumoniae [K. pneumoniae] as the cause of diseases classified elsewhere; B96.20 Unspecified Escherichia coli [E. coli] as the cause of diseases classified elsewhere; D53.9 Nutritional anemia, unspecified; E11.51 Type 2 diabetes mellitus with diabetic peripheral angiopathy without gangrene; E11.65 Type 2 diabetes mellitus with hyperglycemia; E66.01 Morbid (severe) obesity due to excess calories; E78.1 Pure hyperglyceridemia; E83.39 Other disorders of phosphorus metabolism; E86.1 Hypovolemia; E87.0 Hyperosmolality and hypernatremia; E87.4 Mixed disorder of acid-base balance; I36.1 Nonrheumatic tricuspid (valve) insufficiency; I25.10 Atherosclerotic heart disease of native coronary artery without angina pectoris; I49.01 Ventricular fibrillation; I42.8 Other cardiomyopathies; J98.11 Atelectasis; K29.71 Gastritis, unspecified, with bleeding; L02.211 Cutaneous abscess of abdominal wall; N13.6 Pyonephrosis; R13.10 Dysphagia, unspecified; Z83.3 Family history of diabetes mellitus; Z79.52 Long term (current) use of systemic steroids; Z82.49 Family history of ischemic heart disease and other diseases of the circulatory system; Z86.718 Personal history of other venous thrombosis and embolism; Z90.49 Acquired absence of other specified parts of digestive tract; Z68.35 Body mass index [BMI] 35.0-35.9, adult; Z79.899 Other long term (current) drug therapy; Z93.1 Gastrostomy status; Z95.828 Presence of other vascular implants and grafts; R18.8 Other ascites
CPT/HCPCS: 36415; 36600; 70551; 71045; 71250; 71260; 74018; 74176; 74177; 76700; 76770; 76937; 78278; 78580; 80048; 80053; 80061; 80076; 80202; 80305; 80320; 80329; 81003; 82010; 82040; 82043; 82140; 82150; 82248; 82270; 82330; 82375; 82533; 82550; 82570; 82607; 82693; 82728; 82746; 82805; 82962; 83036; 83540; 83550; 83605; 83615; 83735; 83880; 83930; 83935; 84100; 84132; 84134; 84145; 84300; 84439; 84443; 84478; 84481; 84484; 85014; 85018; 85025; 85027; 85044; 85362; 85379; 85384; 86376; 86705; 86709; 86803; 86850; 86900; 86920; 86927; 87070; 87075; 87076; 87077; 87186; 87340; 87426; 87804; 88304; 88305; 88312; 88313; 92610; 93005; 93306; 93458; 93923; 93970; 94003; 94640; 94660; 94667; 97110; 97161; 97164; 99291; A6261; A9560; C1725; C1760; C1769; C1893; C9113; J0330; J0360; J0456; J0610; J0636; J0690; J0696; J1100; J1265; J1644; J1650; J1720; J1815; J1940; J2060; J2185; J2250; J2270; J2370; J2405; J2543; J2704; J2765; J3010; J3370; J3430; J3475; J3480; J3490; J7030; J7040; J7050; J7060; J7070; J7608; P9016; P9017; Q9963; Q9967; U0003; U0005; A4315